=== PATIENT | female | born 1955 | race Caucasian/White ===

== ENCOUNTER → 2018-02-20 16:50 | Outpatient (CLI) | payer SELFPAY | PROVIDERS: Family Provider Family Medicine Geriatric Medicine; PCP Family Medicine Geriatric Medicine; Visit Provider Family Medicine Geriatric Medicine | DX: R69 Illness, unspecified (principal) ==

== ENCOUNTER → 2019-12-10 | Outpatient (CLI) | payer SELFPAY ==
[2019-12-10 11:34] VITALS: BMI 28.1
[2019-12-10 15:17] LABS: Absolute Lymphocyte Count 1.84 X10^3/uL (0.83-4.51); Absolute Neutrophil Count 5.6 X10^3/uL (2.0-7.7); Basophil# 0.05 X10^3/uL; Basophil% 0.6 % (0-1); Eosinophil# 0.14 X10^3/uL; Eosinophils% 1.7 % (0-5); Hematocrit 40.5 % (37-47); Hemoglobin 13.2 g/dL (12.0-15.0); Lymphocyte # 1.84 X10^3/ul (4.0); Lymphocyte % 22.3 % (19-41); Mean Corp Hgb Conc 32.6 g/dL (32-36); Mean Corpuscular Hgb 30.8 pg (27.0-32.0); Mean Corpuscular Volume 94.4 fL (81-99); Mean Platelet Vol. 10.7 fl (6.2-12.0); Monocyte# 0.56 X10^3/uL; Monocyte% 6.8 % (0-10); NRBC Flagged by Analyzer 0 % (0-5); Neutrophil # 5.63 X10^3/uL (2.7-7.7); Neutrophil % 68.2 % (47-70); Platelet Count 259 K/mm3 (150-450); RBC Distribution Width CV 12.9 % (11.6-14.6); RBC Distribution Width SD 44.4 fl (35.1-43.9); Red Blood Count 4.29 M/mm3 (4.2-5.4); White Blood Count 8.3 K/mm3 (4.4-11.0)
[2019-12-10 15:33] LABS: AST(SGOT) 11 U/L (15-37); Alanine Aminotransfer ALT/SGPT 20 U/L (13-56); Albumin, Serum 3.5 g/dL (3.2-5.0); Alkaline Phosphatase 103 U/L (45-117); Anion Gap 8 (5-15); BUN 18 mg/dL (7-18); Calcium,Total 9.1 mg/dL (8.5-10.1); Chloride 105 mmol/L (98-107); Cholesterol 179 mg/dL (200); Creatinine, Serum 0.69 mg/dL (0.55-1.02); EST Glomerular Filtration Rate 91 mL/min (>60); Est Glom Filt Rate - Afr Amer 110 mL/min (>60); Globulin 3.5 g/dL (2.2-4.2); Glucose 120 mg/dL (74-106); High Density Lipoprotein 44 mg/dL; Potassium 4.2 mmol/L (3.5-5.1); Sodium Level 139 mmol/L (136-145); Triglycerides 258 mg/dL; Very Low Density Lipoprotein 52 mg/dL (5-40)
== END | disposition home or self-care (01) ==
LOC: BIMLAB 12:05
PROVIDERS: PCP Internal Medicine; Referring Provider Family Medicine; Visit Provider Family Medicine
DX: E78.5 Hyperlipidemia, unspecified (principal); I10 Essential (primary) hypertension
CPT/HCPCS: 36415; 80053; 80061; 85025

== ENCOUNTER → 2020-03-30 15:01 | Outpatient (CLI) | payer SELFPAY ==
[2020-02-26 11:25] VITALS: BMI 28.1
--- NOTE | 2020-03-30 15:02 | ECHOD_ITS ---
Reason For Study: Murmur Procedure This was a 2D Doppler, Color Flow transthoracic echocardiogram. Exam performed in department. Left Ventricle Normal LV size. Left ventricular systolic function is normal. The estimated ejection fraction is 60 %. Stage 1 diastolic dysfunction. No regional wall motion abnormalities noted. Right Ventricle Normal RV size. Normal systolic function. Atria The left atrium is mildly enlarged. Normal right atrium. Mitral Valve There is mild to moderate mitral annular calcification. Tricuspid Valve Normal tricuspid valve. Mild (1+) tricuspid valve insufficiency. Pulmonary artery systolic pressure is 25 mmHg. Aortic Valve Trisinus/trileaflet aortic valve. Pulmonic Valve Normal pulmonic valve. Great Vessels Normal aortic root. The pulmonary artery is normal size. Normal inferior vena cava. Pericardium/Pleural No pericardial effusion. MMode/2D Measurements & Calculations LVIDd: 4.2 cm IVSd: 0.97 cm Ao root diam: 3.3 cm LVIDs: 2.6 cm LVPWd: 1.0 cm LA dimension: 4.0 cm FS: 38.1 % LAV(MOD-bp): 82.7 ml LVAd ap4: 30.5 cm2 SV(MOD-sp4): 56.9 ml LAV(MOD-bp) Indexed: 43.2 ml/m2 EDV(MOD-sp4): 91.7 ml LAV(MOD-sp2): 81.4 ml EDV(sp4-el): 96.9 ml LAV(MOD-sp4): 80.9 ml LVAs ap4: 16.3 cm2 ESV(MOD-sp4): 34.8 ml ESV(sp4-el): 33.8 ml EF(MOD-sp4): 62.1 % EF(sp4-el): 65.2 % SV(sp4-el): 63.1 ml LA A4 area: 23.3 cm2 RA A4 area: 15.2 cm2 Time Measurements MV dec time: 0.24 sec Doppler Measurements & Calculations MV E max jasiel: 105.7 cm/sec Lat Peak E' Jasiel: 7.7 cm/sec Med Peak E' Jasiel: 7.6 cm/sec MV A max jasiel: 119.3 cm/sec E/E' lat: 13.6 E/E' med: 14.0 MV E/A: 0.89 MV V2 max: 127.1 cm/sec MV P1/2t max jasiel: 120.4 cm/sec Ao V2 max: 138.5 cm/sec MV max P.5 mmHg MV P1/2t: 65.1 msec Ao max P.7 mmHg MV V2 mean: 74.0 cm/sec MV mean P.6 mmHg MV dec slope: 541.7 cm/sec2 MV V2 VTI: 42.6 cm MVA(P1/2t): 3.4 cm2 LV V1 max: 88.3 cm/sec PA V2 max: 81.9 cm/sec TR max jasiel: 238.8 cm/sec LV V1 max P.1 mmHg TR max P.8 mmHg Interpretation Summary Normal LV size. Left ventricular systolic function is normal. The estimated ejection fraction is 60 %. Stage 1 diastolic dysfunction. The left atrium is mildly enlarged. Ordering Physician: Refugio Doyle Referring Physician: Harpreet Hansen M.D. Performed By: Rodger Pimentel RCS
== END ==
PROVIDERS: PCP Family Medicine; Referring Provider Nurse Practitioner Family; Visit Provider Nurse Practitioner Family
DX: I38 Endocarditis, valve unspecified (principal)
CPT/HCPCS: 93306

== ENCOUNTER → 2020-04-22 11:42 | Outpatient (CLI) | payer SELFPAY ==
[2020-04-22 11:00] VITALS: BMI 27.6
[2020-04-22 15:49] LABS: Anion Gap 4 (5-15); BUN 27 mg/dL (7-18); BUN/Creat Ratio 32.1 RATIO (10-20); Chloride 106 mmol/L (98-107); Creatinine, Serum 0.84 mg/dL (0.55-1.02); EST Glomerular Filtration Rate 72 mL/min (>60); Est Glom Filt Rate - Afr Amer 88 mL/min (>60); Glucose 85 mg/dL (74-106); Potassium 4.3 mmol/L (3.5-5.1); Sodium Level 138 mmol/L (136-145)
== END ==
PROVIDERS: PCP Family Medicine; Referring Provider Nurse Practitioner Family; Visit Provider Nurse Practitioner Family
DX: I10 Essential (primary) hypertension (principal)
CPT/HCPCS: 36415; 80048

== ENCOUNTER → 2020-11-02 16:12 | Outpatient (CLI) | payer MEDICARE, SELFPAY ==
[2020-11-02 15:40] VITALS: BMI 27.6
[2020-11-02 17:26] LABS: Cholesterol 204 mg/dL (200); High Density Lipoprotein 50 mg/dL; Triglycerides 281 mg/dL; Very Low Density Lipoprotein 56 mg/dL (5-40)
== END ==
PROVIDERS: PCP Family Medicine; Referring Provider Family Medicine; Visit Provider Family Medicine
DX: I10 Essential (primary) hypertension (principal)
CPT/HCPCS: 36415; 80061

== ENCOUNTER 2021-08-30 16:07 | Outpatient (CLI) | payer MEDICARE, SELFPAY ==
[2021-08-30 18:01] LABS: AST(SGOT) 14 U/L (15-37); Alanine Aminotransfer ALT/SGPT 21 U/L (13-56); Albumin, Serum 3.7 g/dL (3.2-5.0); Alkaline Phosphatase 91 U/L (45-117); Anion Gap 3 (5-15); BUN 28 mg/dL (7-18); BUN/Creat Ratio 32.5 RATIO (10-20); Calcium,Total 9.3 mg/dL (8.5-10.1); Chloride 102 mmol/L (98-107); Creatinine, Serum 0.86 mg/dL (0.55-1.02); EST Glomerular Filtration Rate 70 mL/min (>60); Est Glom Filt Rate - Afr Amer 85 mL/min (>60); Globulin 3.7 g/dL (2.2-4.2); Glucose 77 mg/dL (74-106); Potassium 4.3 mmol/L (3.5-5.1); Protein, Total 7.4 g/dL (6.4-8.2); Sodium Level 136 mmol/L (136-145)
== END 2021-08-30 23:59 | disposition home or self-care (01) ==
LOC: BIMLAB 16:07
PROVIDERS: PCP Family Medicine; Referring Provider Family Medicine; Visit Provider Family Medicine
DX: I10 Essential (primary) hypertension (principal)
CPT/HCPCS: 36415; 80053

== ENCOUNTER 2021-09-28 13:00 | Outpatient (RCR) | payer MEDICARE, SELFPAY ==
[2021-08-31 14:59] VITALS: BP 160/70; PULSE 78; TEMP 35.7; BMI 27.6
--- NOTE | 2021-08-31 16:57 | PCM.WC.HP ---
History of Present Illness Date of Service: 08/31/21 Chief Complaint: Venous leg ulcer right lower extremity History of Wound: This is a 66-year-old white female who presents to the wound healing center today for evaluation of a wound to her right lower extremity. She has a past medical history as listed above. The patient states approximately 3 weeks ago she developed a wound to her right lower extremity and she is unsure of the cause. She denies any known precipitating events. The patient has been applying Neosporin to the wound daily and covering with gauze, with no improvement in the wound. She denies any signs or symptoms of infection to the wound. She does state that initially she squeezed around the wound and yellow discharge came out, but that it has not been draining since then. She reports a past history of varicose veins to her bilateral lower extremities, and states she does not wear compression stockings because they have irritated her knees in the past. She also has a past medical history of chronic venous insufficiency and would like a referral to Dr. Quinones. She denies any other concerns at this time. Past medical, family, and social history reviewed and not pertinent to the current visit and all other systems reviewed and negative with exception of those listed above. [facility] Medical History Arthritis Back problem Carpal tunnel syndrome Cataracts, bilateral GERD (gastroesophageal reflux disease) Heart valve disorder Hyperlipidemia Hypertension Vascular disease Venous insufficiency Venous ulcer of right leg Home Medications esomeprazole magnesium 20 mg capsule,delayed release 22.3 mg PO DAILY 12/08/16 [History Last Taken Unknown] acetaminophen 325 mg capsule 650 mg PO BID PRN cap 11/20/18 [History Last Taken Unknown] diclofenac sodium 1 % topical gel 4 g TOPICAL ONCE #100 g 11/20/18 [Rx Last Taken Unknown] multivitamin 1 tab PO DAILY 11/20/18 [History Last Taken Unknown] meloxicam 15 mg tablet 15 mg PO DAILY 04/22/20 [History Last Taken Unknown] hydrochlorothiazide 25 mg tablet 25 mg PO QAM #90 tab 11/02/20 [Rx Last Taken Unknown] metoprolol tartrate 50 mg tablet 50 mg PO TID #180 tab 05/10/21 [Rx Last Taken Unknown] valsartan 320 mg tablet 160 mg PO BID #180 tab 05/10/21 [Rx Last Taken Unknown] duloxetine 60 mg capsule,delayed release 60 mg PO DAILY #90 cap 06/15/21 [Rx Last Taken Unknown] rosuvastatin 40 mg tablet 40 mg PO QHS #90 tab 06/15/21 [Rx Last Taken Unknown] pantoprazole 40 mg tablet,delayed release 40 mg PO DAILY #30 tab 08/17/21 [Rx Last Taken Unknown] Allergy/AdvReac Type Severity Reaction Status Date / Time No Known Allergies Allergy Verified 08/30/21 15:12 Family History Mother Arthritis CVA (cerebral vascular accident) Father Arthritis Myocardial infarction Heart disease Social History Smoking Status: Current every day smoker alcohol intake: former details: Several years substance use type: does not use what type of physical activity do you participate in: none ROS ROS Narrative Negative x10 systems with exception of those listed above Vital Signs Vital Signs Vital Signs: 08/31/21 14:59 Temperature 96.2 F L Temperature Source Temporal Pulse Rate 78 Blood Pressure 160/70 H Blood Pressure Mean 100 Blood Pressure Source Monitor Weight Weight: 176 lb Body Mass Index (BMI) 27.6 Physical Exam Const alert, oriented x3, no apparent distress, healthy appearing and well nourished General Appearance: cooperative Exam Limitations: no limitations HEENT normocephalic Head and Scalp: normal to inspection Mouth: oral and palatal mucosa normal Eyes General Eye: normal appearance of both eyes Resp normal respiratory effort, normal air movement and no use of accessory muscles Effort and Inspection: able to speak in complete sentences Auscultation: clear to auscultation bilaterally Cardio regular rate, regular rhythm, S1 normal heart sound, S2 normal heart sound, no murmurs and peripheral pulses 2+ throughout Palpation: normal PMI Rate: regular rate Heart Sounds: S1 normal and S2 normal GI normal to inspection, nondistended, normoactive bowel sounds, soft to palpation, non-tender and non-distended Palpation: soft Extremity normal to inspection and full ROM Extremity Narrative: Chronic venous changes present to bilateral lower extremities with large varicosities present bilateral lower extremities General Extremity: normal exam except as noted Skin Skin Narrative: Nonhealing venous leg ulcer to right lower extremity with adherent slough, no signs of obvious infection at this time Neuro oriented x3 and moves all extremities Sensorium / Orientation: awake, alert, oriented to person, oriented to place and oriented to time Psych mental status grossly normal, thought process normal and denies hallucinations Appearance: grossly normal Attitude: calm Activity / Motor Behavior: appropriate eye contact Speech: normal speech Thought Process: normal thought process Thought Content: normal thought content Attention / Concentration: attention grossly intact Insight: insight good Judgement: judgement good Debridement Note Debridement Note Wound debrided: Nonhealing venous leg ulcer to right lower extremity Laterality: Right Type of Debridement: Excisional debridement Anesthesia Used: 4% Lidocaine Solution and 5% Lidocaine Gel Depth: Down to and including healthy tissue and in the subcutaneous layer Percentage of wound debrided: 100 Instrument Used: 3mm curette and 5mm curette Tissue Removed: Slough and devitalized tissue Severity: Fat Layer Exposed Amount of bleeding with debridement: Mild Bleeding Controlled with: Pressure Patient tolerated procedure: Patient tolerated procedure well Post-Debridement Measurements and Additional Note: Post-Debridement Measurements/Treatment WC - Nurse 1 - General Ulcer Assessment Start: 08/31/21 14:59 Freq: Status: Active Protocol: KALYAN Activity Type Activity Date Activity User E-Sign Co-Sign Detail Recorded Client Recorded Date Recorded By Document 08/31/21 14:59 [place] [id number] 08/31/21 15:18 AK 08/31/21 14:59 - Today's Visit Information Type of service Initial Visit Arrival Mode Ambulatory Patient Identification Verified (Name & Yes ) Patient Requires Transmission-Based No Precautions Height and Weight Height 5 ft 7 in Weight 176 lb Weight in Pounds 176.0 lbs Body Mass Index (BMI) 27.6 BMI Classification Overweight BSA - Johanny 1.92 Vital Signs Temperature (97.8 F-99.1 F) 96.2 F L Temperature Source Temporal Pulse Rate (60-100) 78 Pulse Location Monitor Blood Pressure (90/60-120/80) 160/70 H Blood Pressure Mean 100 Source Monitor History Since Last Visit- (Skip if this is Patient's initial visit) Have you changed medications since your No last visit? Any new allergies or adverse reactions No Had a fall/change in ADL's that may No increase risk of falls Signs or symptoms of abuse and/or No neglect since last visit Have you been in the hospital since your No last visit? Has dressing in place as prescribed Yes Has compression in place as prescribed N/A Has offloadiing in place as prescribed N/A Experienced any changes in pain level or No management Left Footwear Regular Shoe Right Footwear Regular Shoe Pain Scale: 0-10 Numeric Is Patient Pain Free? Yes WC - Nurse 1 - General Ulcer Measurement Start: 08/31/21 14:59 Freq: Status: Active Protocol: Activity Type Activity Date Activity User E-Sign Co-Sign Detail Recorded Client Recorded Date Recorded By Document 08/31/21 14:59 AK [id number] 08/31/21 15:18 AK 08/31/21 14:59 Wound Center Nurse 1 #1 Right hunter -Combined with other wound No -Current Size (cm) - Length 1 -Current Size (cm) - Width 1 -Current Size (cm) - Depth 0.1 -Total Square Cm 1 -Date of Last Picture (Recall this 08/31/21 field) -Photo Taken Yes -Epithelialization None Present -Tunneling No -Undermining/Tunneling No -Circular Undermining No -Change in Wound Grade/Stage No -Exudate Amt Small -Exudate Type Serous -Wound Margin Distinct, Outline Attached -Granulation Quality N/A -Slough/Fibrin Yes -Necrosis Amt Small (1-33%) -Necrotic Tissue Type Adherent Slough -Structure Exposed N/A -Texture (Nicolasa-wound Skin Appearance) Assessed -Moisture (Nicolasa-wound Skin Appearance) No Abnormality, Assessed -Color (Nicolasa-wound Skin Appearance) Assessed, Erythema -Temperature (Nicolasa-wound Skin No Abnormality Appearance) (Pt Warm) -Tenderness on Palpation (Nicolasa-wound No Skin Appearance) -Ulcer Cleansing Rinsed/ Irrigated with Saline -Foul Odor after Cleansing No -Anesthetic Used 4% Lidocaine Solution Right Calf (cm) 39 Right Ankle (cm) 26 Left Calf (cm) 39 Left Ankle (cm) 24.5 WC - Nurse 2 - General Ulcer CM Notes Start: 08/31/21 14:59 Freq: Status: Active Protocol: Activity Type Activity Date Activity User E-Sign Co-Sign Detail Recorded Client Recorded Date Recorded By Document 08/31/21 15:28 MW [id number] 08/31/21 15:32 MW 08/31/21 15:28 Wound Center Nurse 2 #1 Right hunter -Time 15:29 -Correct Patient Yes -Correct Side, Site, Position Yes -Correct Procedure Yes -Procedure Performed Yes -Type of Procedure Debridement -Clinical Debridement Subcutaneous -Tissue Removed Subcutaneous -Post Debridement (cm) - Length 3.5 -Post Debridement (cm) - Width 1.8 -Post Debridement (cm) - Depth 0.1 -Total Square (Post) (cm) 6.30 -Area of Debridement (cm) - Length 3.5 -Area of Debridement (cm) - Width 1.8 -Total Square (Area) (cm) 6.30 -Tunneling No -Undermining/Tunneling No -Circular Undermining No -Wound/Ulcer Outcome Not Healed -Ulcer Cleansing Rinsed/ Irrigated with Saline -Foul Odor after Cleansing No -Bioengineered Tissue No -Bleeding Controlled with Pressure -Offloading No -Treatment Response Procedure Tolerated Well -Debridement - Subq, 1st 20sq cm Yes Pain Scale: 0-10 Numeric Is Patient Pain Free? Yes - Nurse 3 - General Ulcer D/C NN Start: 08/31/21 14:59 Freq: Status: Active Protocol: Activity Type Activity Date Activity User E-Sign Co-Sign Detail Recorded Client Recorded Date Recorded By Document 08/31/21 15:42 AK [id number] 08/31/21 15:47 AK 08/31/21 15:42 Wound Care Nurse 3 #1 Right hunter -Ulcer Cleansing Rinsed/ Irrigated with Saline -Foul Odor after Cleansing No -Negative Pressure Wound Therapy N/A -Primary Dressing Applied NonAdherent Contact Layer, Promogran Rhonda Matter -Primary Dressing Covered/Secured with Dry Gauze, Secured with Tape -Promogran Rhonda Matter 1 Pain Scale: 0-10 Numeric Is Patient Pain Free? Yes WC - Visit Discharge Discharge Condition Stable Ambulatory Status Ambulatory Transportation Private Auto Medication Reconcilliation completed & Yes provided to patient/care provider Clinical Summary of Care Provided Yes Charges/Coding Procedures Integumentary [id number]: [id number] Yolie subq tissue 20 sq cm/< Assessment/Plan Assessment/Plan (1) Venous ulcer of right leg: CODE(S): I83.019 - Varicose veins of right lower extremity with ulcer of unspecified site; L97.919 - Non-pressure chronic ulcer of unspecified part of right lower leg with unspecified severity (2) Venous insufficiency: CODE(S): I87.2 - Venous insufficiency (chronic) (peripheral) (3) Vascular disease: CODE(S): I99.9 - Unspecified disorder of circulatory system (4) GERD (gastroesophageal reflux disease): CODE(S): K21.9 - Gastro-esophageal reflux disease without esophagitis (5) Hypertension: CODE(S): I10 - Essential (primary) hypertension QUALIFIERS: Hypertension type: essential hypertension Qualified Code(s): I10 - Essential (primary) hypertension PLAN: Debridement performed today in clinic as annotated above. Rhonda applied. At home wound-care instructions: Daily application of Rhonda cover with Adaptic gauze, Change dressing once daily or more frequently as needed due to contamination. Wash wounds daily with antibacterial soap and water, rinse and dry thoroughly before each dressing change. Compression: Double layer Tubigrip's Off-loading: The patient was instructed to avoid pressure and friction on the affected areas. Reposition every 2 hours at minimum. Avoid prolonged standing and/or dangling of legs. When seated, feet should be elevated at chest level. Frequent ambulation is encouraged. Diet: Patient encouraged to increase protein intake while taking caution to avoid high carbohydrate and/or sugar intake. Smoking: The risks of smoking and benefits of smoking cessation were discussed with the patient today. The patient is encouraged to quit smoking. If smoking cessation aids are desired, the patient should contact their primary care provider to discuss appropriate options. Labs/cultures/imaging: Cultures, lab work, and vascular studies held today will reassess if no improvement. Follow-up: Return to clinic in 1 week for re-evaluation. Return sooner or report to the emergency room should symptoms worsen, or new symptoms arise. This note was generated with [employer] dictation software. It may contain incorrect words, spelling, and punctuation that were not noted in checking the note before signing. I have spent 25 minutes today reviewing labs, records, and history. Time includes coordinating care, interpretation of tests, and counseling the patient/family. This also includes time I spent with the patient for exam, treatment plan, and education as well as documenting clinical information in the electronic health record.
[2021-09-07 15:09] VITALS: BP 155/79; PULSE 86; RESP 18; TEMP 36.4; BMI 27.6
--- NOTE | 2021-09-07 16:39 | PCM.WC.PN ---
History of Present Illness Date of Service: 09/07/21 Chief Complaint: Venous leg ulcer right lower extremity History of Wound: This is a 66-year-old white female who presents to the wound healing center today for evaluation of a wound to her right lower extremity. She has a past medical history as listed above. The patient states approximately 3 weeks ago she developed a wound to her right lower extremity and she is unsure of the cause. She denies any known precipitating events. The patient has been applying Neosporin to the wound daily and covering with gauze, with no improvement in the wound. She denies any signs or symptoms of infection to the wound. She does state that initially she squeezed around the wound and yellow discharge came out, but that it has not been draining since then. She reports a past history of varicose veins to her bilateral lower extremities, and states she does not wear compression stockings because they have irritated her knees in the past. She also has a past medical history of chronic venous insufficiency and would like a referral to Dr. Quinones. She denies any other concerns at this time. Past medical, family, and social history reviewed and not pertinent to the current visit and all other systems reviewed and negative with exception of those listed above. Progress of Wound: Wound size is stable, will trial 3M wraps today, no new concerns Objective Data Objective Data Vital Signs: Vital Signs Temp Pulse Resp BP 97.5 F L 86 18 155/79 H 09/07/21 15:09 09/07/21 15:09 09/07/21 15:09 09/07/21 15:09 Weight: 176 lb Body Mass Index (BMI) 27.6 Charges/Coding Procedures Integumentary 111xxx-113xx: [id number] Yolie subq tissue 20 sq cm/< Physical Exam Const alert, oriented x3, no apparent distress, healthy appearing and well nourished General Appearance: cooperative Exam Limitations: no limitations HEENT normocephalic Head and Scalp: normal to inspection Mouth: oral and palatal mucosa normal Eyes General Eye: normal appearance of both eyes Resp normal respiratory effort, normal air movement and no use of accessory muscles Effort and Inspection: able to speak in complete sentences Auscultation: clear to auscultation bilaterally Cardio regular rate, regular rhythm, S1 normal heart sound, S2 normal heart sound, no murmurs and peripheral pulses 2+ throughout Palpation: normal PMI Rate: regular rate Heart Sounds: S1 normal and S2 normal GI normal to inspection, nondistended, normoactive bowel sounds, soft to palpation, non-tender and non-distended Palpation: soft Extremity normal to inspection and full ROM Extremity Narrative: Chronic venous changes present to bilateral lower extremities with large varicosities present bilateral lower extremities General Extremity: normal exam except as noted Skin Skin Narrative: Nonhealing venous leg ulcer to right lower extremity with adherent slough, no signs of obvious infection at this time Neuro oriented x3 and moves all extremities Sensorium / Orientation: awake, alert, oriented to person, oriented to place and oriented to time Psych mental status grossly normal, thought process normal and denies hallucinations Appearance: grossly normal Attitude: calm Activity / Motor Behavior: appropriate eye contact Speech: normal speech Thought Process: normal thought process Thought Content: normal thought content Attention / Concentration: attention grossly intact Insight: insight good Judgement: judgement good Debridement Note Debridement Note Wound debrided: Venous leg ulcer right lower extremity Laterality: Right Type of Debridement: Excisional debridement Anesthesia Used: 4% Lidocaine Solution and 5% Lidocaine Gel Depth: Down to and including healthy tissue and in the subcutaneous layer Percentage of wound debrided: 100 Instrument Used: 5mm curette Tissue Removed: Slough and devitalized tissue Severity: Fat Layer Exposed Amount of bleeding with debridement: Mild Bleeding Controlled with: Pressure Patient tolerated procedure: Patient tolerated procedure well Post-Debridement Measurements and Additional Note: Post-Debridement Measurements/Treatment - Nurse 1 - General Ulcer Assessment Start: 08/31/21 14:59 Freq: Status: Active Protocol: KALYAN Activity Type Activity Date Activity User E-Sign Co-Sign Detail Recorded Client Recorded Date Recorded By Document 08/31/21 14:59 AK [id number] 08/31/21 15:18 AK Document 09/07/21 15:09 DL [id number] 09/07/21 15:17 DL 08/31/21 09/07/21 14:59 15:09 - Today's Visit Information Type of service Initial Visit Follow-up Visit (Physician/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 ENGINEER ) Arrival Mode Ambulatory Ambulatory Transfer Assistance None Patient Identification Verified (Name & Yes Yes ) Patient Requires Transmission-Based No No Precautions Height and Weight Height 5 ft 7 in Weight 176 lb Weight in Pounds 176.0 lbs Body Mass Index (BMI) 27.6 27.6 BMI Classification Overweight Overweight BSA - Johanny 1.92 Vital Signs Temperature (97.8 F-99.1 F) 96.2 F L 97.5 F L Temperature Source Temporal Temporal Pulse Rate (60-100) 78 86 Pulse Location Monitor Monitor Respiratory Rate (12-18) 18 Respiratory rate source Observation Blood Pressure (90/60-120/80) 160/70 H 155/79 H Blood Pressure Mean (mm Hg) 100 104 Source Monitor Monitor History Since Last Visit- (Skip if this is Patient's initial visit) Have you changed medications since your No No last visit? Any new allergies or adverse reactions No No Had a fall/change in ADL's that may No No increase risk of falls Signs or symptoms of abuse and/or No No neglect since last visit Have you been in the hospital since your No No last visit? Has dressing in place as prescribed Yes Yes Has compression in place as prescribed N/A Yes Has offloadiing in place as prescribed N/A N/A Experienced any changes in pain level or No No management Left Footwear Regular Shoe Right Footwear Regular Shoe Pain Scale: 0-10 Numeric Is Patient Pain Free? Yes Yes WC - Nurse 1 - General Ulcer Measurement Start: 08/31/21 14:59 Freq: Status: Active Protocol: Activity Type Activity Date Activity User E-Sign Co-Sign Detail Recorded Client Recorded Date Recorded By Document 08/31/21 14:59 AK [id number] 08/31/21 15:18 AK Document 09/07/21 15:09 DL [id number] 09/07/21 15:17 DL 08/31/21 09/07/21 14:59 15:09 Wound Center Nurse 1 #1 Right hunter -Combined with other wound No -Current Size (cm) - Length 1 3.5 -Current Size (cm) - Width 1 1 -Current Size (cm) - Depth 0.1 0.1 -Total Square Cm 1 3.5 -Date of Last Picture (Recall this 08/31/21 field) -Photo Taken Yes No -Epithelialization None Present -Tunneling No -Undermining/Tunneling No -Circular Undermining No -Change in Wound Grade/Stage No -Exudate Amt Small Medium -Exudate Type Serous Serosanguineous -Wound Margin Distinct, Distinct, Outline Outline Attached Attached -Granulation Amt None Present (0 %) -Granulation Quality N/A -Slough/Fibrin Yes -Necrosis Amt Small (1-33%) Large (67-100%) -Necrotic Tissue Type Adherent Slough Adherent Slough -Structure Exposed N/A N/A -Texture (Nicolasa-wound Skin Appearance) Assessed Scarring -Moisture (Nicolasa-wound Skin Appearance) No Abnormality, No Abnormality Assessed -Color (Nicolasa-wound Skin Appearance) Assessed, No Abnormality Erythema -Temperature (Nicolasa-wound Skin No Abnormality No Abnormality Appearance) (Pt Warm) (Pt Warm) -Tenderness on Palpation (Nicolasa-wound No No Skin Appearance) -Ulcer Cleansing Rinsed/ Rinsed/ Irrigated with Irrigated with Saline Saline -Foul Odor after Cleansing No No -Anesthetic Used 4% Lidocaine 4% Lidocaine Solution Solution Right Calf (cm) 39 39 Right Ankle (cm) 26 24 Left Calf (cm) 39 Left Ankle (cm) 24.5 WC - Nurse 2 - General Ulcer CM Notes Start: 08/31/21 14:59 Freq: Status: Active Protocol: Activity Type Activity Date Activity User E-Sign Co-Sign Detail Recorded Client Recorded Date Recorded By Document 08/31/21 15:28 MW [id number] 08/31/21 15:32 MW Document 09/07/21 15:40 MW [id number] 09/07/21 15:41 MW 08/31/21 09/07/21 15:28 15:40 Wound Center Nurse 2 #1 Right hunter -Time 15:29 15:40 -Correct Patient Yes Yes -Correct Side, Site, Position Yes Yes -Correct Procedure Yes Yes -Procedure Performed Yes Yes -Type of Procedure Debridement Debridement -Clinical Debridement Subcutaneous Subcutaneous -Tissue Removed Subcutaneous Subcutaneous -Post Debridement (cm) - Length 3.5 3.5 -Post Debridement (cm) - Width 1.8 1.7 -Post Debridement (cm) - Depth 0.1 0.1 -Total Square (Post) (cm) 6.30 5.95 -Area of Debridement (cm) - Length 3.5 3.5 -Area of Debridement (cm) - Width 1.8 1.7 -Total Square (Area) (cm) 6.30 5.95 -Tunneling No No -Undermining/Tunneling No No -Circular Undermining No No -Wound/Ulcer Outcome Not Healed Not Healed -Ulcer Cleansing Rinsed/ Rinsed/ Irrigated with Irrigated with Saline Saline -Foul Odor after Cleansing No No -Bioengineered Tissue No No -Bleeding Controlled with Pressure Pressure -Offloading No No -Treatment Response Procedure Procedure Tolerated Well Tolerated Well -Debridement - Subq, 1st 20sq cm Yes Yes Pain Scale: 0-10 Numeric Is Patient Pain Free? Yes Yes WC - Nurse 3 - General Ulcer D/C NN Start: 08/31/21 14:59 Freq: Status: Active Protocol: Activity Type Activity Date Activity User E-Sign Co-Sign Detail Recorded Client Recorded Date Recorded By Document 08/31/21 15:42 AK [id number] 08/31/21 15:47 AK Document 09/07/21 15:41 MW [id number] 09/07/21 15:43 MW 08/31/21 09/07/21 15:42 15:41 Wound Care Nurse 3 #1 Right hunter -Ulcer Cleansing Rinsed/ Rinsed/ Irrigated with Irrigated with Saline Saline -Foul Odor after Cleansing No No -Negative Pressure Wound Therapy N/A N/A -Primary Dressing Applied NonAdherent Silvercel Contact Layer, Promogran Rhonda Matter -Primary Dressing Covered/Secured with Dry Gauze, Dry Gauze Secured with Tape -Promogran Rhonda Matter 1 -Silvercel 1 Right -Lotion applied to leg before No compression wrap -Multi-Layered Wrap Application Multi-Layer Comp - Right ($ ) Treatment Response Procedure Tolerated Well Pain Scale: 0-10 Numeric Is Patient Pain Free? Yes Yes Teaching: Wound Center Dressing Your Wound -Person Taught Patient -Teaching Method Discussion -Response to teaching Verbalize understanding WC - Visit Discharge Discharge Condition Stable Stable Ambulatory Status Ambulatory Ambulatory Transportation Private Auto Private Auto Accompanied by self Medication Reconcilliation completed & Yes No provided to patient/care provider Clinical Summary of Care Provided Yes Yes Assessment/Plan Assessment/Plan (1) Venous ulcer of right leg: CODE(S): I83.019 - Varicose veins of right lower extremity with ulcer of unspecified site; L97.919 - Non-pressure chronic ulcer of unspecified part of right lower leg with unspecified severity (2) Venous insufficiency: CODE(S): I87.2 - Venous insufficiency (chronic) (peripheral) (3) Vascular disease: CODE(S): I99.9 - Unspecified disorder of circulatory system (4) GERD (gastroesophageal reflux disease): CODE(S): K21.9 - Gastro-esophageal reflux disease without esophagitis (5) Hypertension: CODE(S): I10 - Essential (primary) hypertension QUALIFIERS: Hypertension type: essential hypertension Qualified Code(s): I10 - Essential (primary) hypertension PLAN: Debridement performed today in clinic as annotated above. Silver cell with 3M wraps, change this following Saturday. At home wound-care instructions: See above Compression: 3M wraps Off-loading: The patient was instructed to avoid pressure and friction on the affected areas. Reposition every 2 hours at minimum. Avoid prolonged standing and/or dangling of legs. When seated, feet should be elevated at chest level. Frequent ambulation is encouraged. Diet: Patient encouraged to increase protein intake while taking caution to avoid high carbohydrate and/or sugar intake. Smoking: The risks of smoking and benefits of smoking cessation were discussed with the patient today. The patient is encouraged to quit smoking. If smoking cessation aids are desired, the patient should contact their primary care provider to discuss appropriate options. Labs/cultures/imaging: Cultures, lab work, and vascular studies held today will reassess if no improvement. She does have an appointment scheduled with Dr. Quinones on 10/14/2021 Follow-up: Return to clinic in 1 week for re-evaluation. Return sooner or report to the emergency room should symptoms worsen, or new symptoms arise. Given the delayed wound healing and fact that the wound has been present for greater than 4 weeks without improving significantly with wound care, will apply for an advanced skin substitute. This note was generated with [employer] dictation software. It may contain incorrect words, spelling, and punctuation that were not noted in checking the note before signing. I have spent 25 minutes today reviewing labs, records, and history. Time includes coordinating care, interpretation of tests, and counseling the patient/family. This also includes time I spent with the patient for exam, treatment plan, and education as well as documenting clinical information in the electronic health record.
[2021-09-14 15:12] VITALS: RESP 17; TEMP 36.4; BMI 27.6
--- NOTE | 2021-09-14 16:44 | PN.PCM_ITS ---
History of Present Illness Date of Service: 09/14/21 Chief Complaint: Venous leg ulcer right lower extremity History of Wound: This is a 66-year-old white female who presents to the wound healing center today for evaluation of a wound to her right lower extremity. She has a past medical history as listed above. The patient states approximately 3 weeks ago she developed a wound to her right lower extremity and she is unsure of the cause. She denies any known precipitating events. The patient has been applying Neosporin to the wound daily and covering with gauze, with no improvement in the wound. She denies any signs or symptoms of infection to the wound. She does state that initially she squeezed around the wound and yellow discharge came out, but that it has not been draining since then. She reports a past history of varicose veins to her bilateral lower extremities, and states she does not wear compression stockings because they have irritated her knees in the past. She also has a past medical history of chronic venous insufficiency and would like a referral to Dr. Quinones. She denies any other concerns at this time. Past medical, family, and social history reviewed and not pertinent to the current visit and all other systems reviewed and negative with exception of those listed above. Progress of Wound: Wound size is stable, given the delayed wound healing, first application of purapply a.m. today and 3M wraps today, no new concerns Objective Data Objective Data Vital Signs: Vital Signs Temp Pulse Resp BP 97.6 F L 86 17 155/79 H 09/14/21 15:12 09/07/21 15:09 09/14/21 15:12 09/07/21 15:09 Weight: 176 lb Body Mass Index (BMI) 27.6 Charges/Coding Procedures Integumentary 150xxx-152xx: [id number] Skin sub graft trnk/arm/leg Physical Exam Const alert, oriented x3, no apparent distress, healthy appearing and well nourished General Appearance: cooperative Exam Limitations: no limitations HEENT normocephalic Head and Scalp: normal to inspection Mouth: oral and palatal mucosa normal Eyes General Eye: normal appearance of both eyes Resp normal respiratory effort, normal air movement and no use of accessory muscles Effort and Inspection: able to speak in complete sentences Auscultation: clear to auscultation bilaterally Cardio regular rate, regular rhythm, S1 normal heart sound, S2 normal heart sound, no murmurs and peripheral pulses 2+ throughout Palpation: normal PMI Rate: regular rate Heart Sounds: S1 normal and S2 normal GI normal to inspection, nondistended, normoactive bowel sounds, soft to palpation, non-tender and non-distended Palpation: soft Extremity normal to inspection and full ROM Extremity Narrative: Chronic venous changes present to bilateral lower extremities with large varicosities present bilateral lower extremities General Extremity: normal exam except as noted Skin Skin Narrative: Nonhealing venous leg ulcer to right lower extremity with adherent slough, no signs of obvious infection at this time Neuro oriented x3 and moves all extremities Sensorium / Orientation: awake, alert, oriented to person, oriented to place and oriented to time Psych mental status grossly normal, thought process normal and denies hallucinations Appearance: grossly normal Attitude: calm Activity / Motor Behavior: appropriate eye contact Speech: normal speech Thought Process: normal thought process Thought Content: normal thought content Attention / Concentration: attention grossly intact Insight: insight good Judgement: judgement good Debridement Note Debridement Note Wound debrided: Right lower extremity ulcer Laterality: Right Type of Debridement: Excisional debridement Anesthesia Used: 4% Lidocaine Solution and 5% Lidocaine Gel Depth: Down to and including healthy tissue and in the subcutaneous layer Percentage of wound debrided: 100 Instrument Used: 5mm curette Tissue Removed: Slough and devitalized tissue Severity: Fat Layer Exposed Amount of bleeding with debridement: Mild Bleeding Controlled with: Pressure Patient tolerated procedure: Patient tolerated procedure well Post-Debridement Measurements and Additional Note: Post-Debridement Measurements/Treatment - Nurse 1 - General Ulcer Assessment Start: 08/31/21 14:59 Freq: Status: Active Protocol: KALYAN Activity Type Activity Date Activity User E-Sign Co-Sign Detail Recorded Client Recorded Date Recorded By Document 08/31/21 14:59 AK [id number] 08/31/21 15:18 AK Document 09/07/21 15:09 DL [id number] 09/07/21 15:17 DL Document 09/14/21 15:12 ML [id number] 09/14/21 15:18 ML 08/31/21 09/07/21 09/14/21 14:59 15:09 15:12 - Today's Visit Information Type of service Initial Visit Follow-up Visit Follow-up Visit (Physician/HUMAN RESOURCES ASSISTANT MANAGER (Physician/HUMAN RESOURCES ASSISTANT MANAGER ) ) Arrival Mode Ambulatory Ambulatory Ambulatory Transfer Assistance None None Patient Identification Verified (Name & Yes Yes Yes ) Patient Requires Transmission-Based No No No Precautions Safety Precautions NA Height and Weight Height 5 ft 7 in Weight 176 lb Weight in Pounds 176.0 lbs Body Mass Index (BMI) 27.6 27.6 27.6 BMI Classification Overweight Overweight Overweight BSA - Johanny 1.92 Vital Signs Temperature (97.8 F-99.1 F) 96.2 F L 97.5 F L 97.6 F L Temperature Source Temporal Temporal Temporal Pulse Rate (60-100) 78 86 Pulse Location Monitor Monitor Respiratory Rate (12-18) 18 17 Respiratory rate source Observation Observation Blood Pressure (90/60-120/80) 160/70 H 155/79 H Blood Pressure Mean (mm Hg) 100 104 Source Monitor Monitor History Since Last Visit- (Skip if this is Patient's initial visit) Have you changed medications since your No No No last visit? Any new allergies or adverse reactions No No No Had a fall/change in ADL's that may No No No increase risk of falls Signs or symptoms of abuse and/or No No No neglect since last visit Have you been in the hospital since your No No No last visit? Has dressing in place as prescribed Yes Yes Yes Has compression in place as prescribed N/A Yes Yes Has offloadiing in place as prescribed N/A N/A N/A Experienced any changes in pain level or No No No management Left Footwear Regular Shoe Regular Shoe Right Footwear Regular Shoe Regular Shoe Pain Scale: 0-10 Numeric Is Patient Pain Free? Yes Yes Yes WC - Nurse 1 - General Ulcer Measurement Start: 08/31/21 14:59 Freq: Status: Active Protocol: Activity Type Activity Date Activity User E-Sign Co-Sign Detail Recorded Client Recorded Date Recorded By Document 08/31/21 14:59 AK [id number] 08/31/21 15:18 AK Document 09/07/21 15:09 DL [id number] 09/07/21 15:17 DL Document 09/14/21 15:12 ML [id number] 09/14/21 15:18 ML 08/31/21 09/07/21 09/14/21 14:59 15:09 15:12 Wound Center Nurse 1 #1 Right hunter -Combined with other wound No -Current Size (cm) - Length 1 3.5 3.4 -Current Size (cm) - Width 1 1 1.3 -Current Size (cm) - Depth 0.1 0.1 0.1 -Total Square Cm 1 3.5 4.42 -Date of Last Picture (Recall this 08/31/21 field) -Photo Taken Yes No -Epithelialization None Present -Tunneling No -Undermining/Tunneling No -Circular Undermining No -Change in Wound Grade/Stage No -Exudate Amt Small Medium -Exudate Type Serous Serosanguineous Serous -Wound Margin Distinct, Distinct, Distinct, Outline Outline Outline Attached Attached Attached -Granulation Amt None Present (0 Medium (34-66%) %) -Granulation Quality N/A -Slough/Fibrin Yes Yes -Necrosis Amt Small (1-33%) Large (67-100%) Medium (34-66%) -Necrotic Tissue Type Adherent Slough Adherent Slough Adherent Slough -Structure Exposed N/A N/A -Texture (Nicolasa-wound Skin Appearance) Assessed Scarring Assessed -Moisture (Nicolasa-wound Skin Appearance) No Abnormality, No Abnormality No Abnormality Assessed -Color (Nicolasa-wound Skin Appearance) Assessed, No Abnormality Assessed Erythema -Temperature (Nicolasa-wound Skin No Abnormality No Abnormality No Abnormality Appearance) (Pt Warm) (Pt Warm) (Pt Warm) -Tenderness on Palpation (Nicolasa-wound No No Skin Appearance) -Ulcer Cleansing Rinsed/ Rinsed/ Rinsed/ Irrigated with Irrigated with Irrigated with Saline Saline Saline -Foul Odor after Cleansing No No No -Anesthetic Used 4% Lidocaine 4% Lidocaine 5% Lidocaine Solution Solution Gel Right Calf (cm) 39 39 38.5 Right Ankle (cm) 26 24 23.2 Left Calf (cm) 39 Left Ankle (cm) 24.5 WC - Nurse 2 - General Ulcer CM Notes Start: 08/31/21 14:59 Freq: Status: Active Protocol: Activity Type Activity Date Activity User E-Sign Co-Sign Detail Recorded Client Recorded Date Recorded By Document 08/31/21 15:28 MW [id number] 08/31/21 15:32 MW Document 09/07/21 15:40 MW [id number] 09/07/21 15:41 MW Document 09/14/21 16:00 MW [id number] 09/14/21 16:16 MW 08/31/21 09/07/21 09/14/21 15:28 15:40 16:00 Wound Center Nurse 2 #1 Right hunter -Time 15:29 15:40 16:07 -Correct Patient Yes Yes Yes -Correct Side, Site, Position Yes Yes Yes -Correct Procedure Yes Yes Yes -Procedure Performed Yes Yes Yes -Type of Procedure Debridement Debridement Debridement -Clinical Debridement Subcutaneous Subcutaneous Subcutaneous -Tissue Removed Subcutaneous Subcutaneous Subcutaneous -Post Debridement (cm) - Length 3.5 3.5 3.4 -Post Debridement (cm) - Width 1.8 1.7 1.5 -Post Debridement (cm) - Depth 0.1 0.1 0.1 -Total Square (Post) (cm) 6.30 5.95 5.10 -Area of Debridement (cm) - Length 3.5 3.5 3.4 -Area of Debridement (cm) - Width 1.8 1.7 1.5 -Total Square (Area) (cm) 6.30 5.95 5.10 -Tunneling No No No -Undermining/Tunneling No No No -Circular Undermining No No No -Wound/Ulcer Outcome Not Healed Not Healed Not Healed -Ulcer Cleansing Rinsed/ Rinsed/ Rinsed/ Irrigated with Irrigated with Irrigated with Saline Saline Saline -Foul Odor after Cleansing No No No -Bioengineered Tissue No No Yes -Type of Bioengineered Tissue PuraPly AM -Expiration Date 11/11/23 -Product Lot Number [id number] -Percent Used 100 -Lot number of Saline Used [id number] -Bleeding Controlled with Pressure Pressure Pressure -Treatment Response Procedure Procedure Procedure Tolerated Well Tolerated Well Tolerated Well -Offloading No No No -Debridement - Subq, 1st 20sq cm Yes Yes No -Apply Skin Sub - 1st 25 sq cm - Legs 1 -PuraPly AM (per sq cm) 4 Pain Scale: 0-10 Numeric Is Patient Pain Free? Yes Yes Yes WC - Nurse 3 - General Ulcer D/C NN Start: 08/31/21 14:59 Freq: Status: Active Protocol: Activity Type Activity Date Activity User E-Sign Co-Sign Detail Recorded Client Recorded Date Recorded By Document 08/31/21 15:42 AK [id number] 08/31/21 15:47 AK Document 09/07/21 15:41 MW [id number] 09/07/21 15:43 MW Document 09/14/21 16:16 MW [id number] 09/14/21 16:17 MW 08/31/21 09/07/21 09/14/21 15:42 15:41 16:16 Wound Care Nurse 3 #1 Right hunter -Ulcer Cleansing Rinsed/ Rinsed/ Not Cleansed Irrigated with Irrigated with Saline Saline -Foul Odor after Cleansing No No -Negative Pressure Wound Therapy N/A N/A -Primary Dressing Applied NonAdherent Silvercel Contact Layer, Promogran Rhonda Matter -Primary Dressing Covered/Secured with Dry Gauze, Dry Gauze Dry Gauze Secured with Tape -Promogran Rhonda Matter 1 -Silvercel 1 Right -Lotion applied to leg before No No compression wrap -Multi-Layered Wrap Application Multi-Layer Multi-Layer Comp - Right ($ Comp - Right ($ ) ) Treatment Response Procedure Procedure Tolerated Well Tolerated Well Pain Scale: 0-10 Numeric Is Patient Pain Free? Yes Yes Yes Teaching: Wound Center Dressing Your Wound -Person Taught Patient Patient -Teaching Method Discussion Discussion -Response to teaching Verbalize Verbalize understanding understanding WC - Visit Discharge Discharge Condition Stable Stable Stable Ambulatory Status Ambulatory Ambulatory Ambulatory Transportation Private Auto Private Auto Accompanied by self self Medication Reconcilliation completed & Yes No No provided to patient/care provider Clinical Summary of Care Provided Yes Yes Yes Assessment/Plan Assessment/Plan (1) Venous ulcer of right leg: CODE(S): I83.019 - Varicose veins of right lower extremity with ulcer of unspecified site; L97.919 - Non-pressure chronic ulcer of unspecified part of right lower leg with unspecified severity (2) Venous insufficiency: CODE(S): I87.2 - Venous insufficiency (chronic) (peripheral) (3) Vascular disease: CODE(S): I99.9 - Unspecified disorder of circulatory system (4) GERD (gastroesophageal reflux disease): CODE(S): K21.9 - Gastro-esophageal reflux disease without esophagitis (5) Hypertension: CODE(S): I10 - Essential (primary) hypertension QUALIFIERS: Hypertension type: essential hypertension Qualified Code(s): I10 - Essential (primary) hypertension PLAN: Debridement performed today in clinic as annotated above. Purapply a.m. #1 was applied today, 100% was utilized with 0 wastage, this was secured with Adaptic touch, Steri-Strips, and 3M wraps, change this following Saturday. At home wound-care instructions: See above Compression: 3M wraps Off-loading: The patient was instructed to avoid pressure and friction on the affected areas. Reposition every 2 hours at minimum. Avoid prolonged standing and/or dangling of legs. When seated, feet should be elevated at chest level. Frequent ambulation is encouraged. Diet: Patient encouraged to increase protein intake while taking caution to avoid high carbohydrate and/or sugar intake. Smoking: The risks of smoking and benefits of smoking cessation were discussed with the patient today. The patient is encouraged to quit smoking. If smoking cessation aids are desired, the patient should contact their primary care provider to discuss appropriate options. Labs/cultures/imaging: Cultures, lab work, and vascular studies held today will reassess if no improvement. She does have an appointment scheduled with Dr. Quinones on 10/14/2021 Follow-up: Return to clinic in 1 week for re-evaluation. Return sooner or report to the emergency room should symptoms worsen, or new symptoms arise. Given the delayed wound healing and fact that the wound has been present for greater than 4 weeks without improving significantly with wound care, will apply for an advanced skin substitute. This note was generated with [employer] dictation software. It may contain incorrect words, spelling, and punctuation that were not noted in checking the note before signing. I have spent 25 minutes today reviewing labs, records, and history. Time includes coordinating care, interpretation of tests, and counseling the patient/family. This also includes time I spent with the patient for exam, treatment plan, and education as well as documenting clinical information in the electronic health record.
[2021-09-21 15:23] VITALS: BP 145/68; PULSE 72; RESP 16; TEMP 36.1; BMI 27.6
--- NOTE | 2021-09-21 19:07 | PCM.WC.PN ---
History of Present Illness Date of Service: 09/21/21 Chief Complaint: Venous leg ulcer right lower extremity History of Wound: This is a 66-year-old white female who presents to the wound healing center today for evaluation of a wound to her right lower extremity. She has a past medical history as listed above. The patient states approximately 3 weeks ago she developed a wound to her right lower extremity and she is unsure of the cause. She denies any known precipitating events. The patient has been applying Neosporin to the wound daily and covering with gauze, with no improvement in the wound. She denies any signs or symptoms of infection to the wound. She does state that initially she squeezed around the wound and yellow discharge came out, but that it has not been draining since then. She reports a past history of varicose veins to her bilateral lower extremities, and states she does not wear compression stockings because they have irritated her knees in the past. She also has a past medical history of chronic venous insufficiency and would like a referral to Dr. Quinones. She denies any other concerns at this time. Past medical, family, and social history reviewed and not pertinent to the current visit and all other systems reviewed and negative with exception of those listed above. Progress of Wound: Wound size is stable, given the delayed wound healing, first application ofnushield applied today and 3M wraps today, no new concerns, cultures collected today and patient does have an upcoming appointment with Dr. Quinones in vascular Objective Data Objective Data Vital Signs: Vital Signs Temp Pulse Resp BP 97.0 F L 72 16 145/68 H 09/21/21 15:23 09/21/21 15:23 09/21/21 15:23 09/21/21 15:23 Weight: 176 lb Body Mass Index (BMI) 27.6 Charges/Coding Procedures Integumentary 150xxx-152xx: [id number] Skin sub graft trnk/arm/leg Physical Exam Const alert, oriented x3, no apparent distress, healthy appearing and well nourished General Appearance: cooperative Exam Limitations: no limitations HEENT normocephalic Head and Scalp: normal to inspection Mouth: oral and palatal mucosa normal Eyes General Eye: normal appearance of both eyes Resp normal respiratory effort, normal air movement and no use of accessory muscles Effort and Inspection: able to speak in complete sentences Auscultation: clear to auscultation bilaterally Cardio regular rate, regular rhythm, S1 normal heart sound, S2 normal heart sound, no murmurs and peripheral pulses 2+ throughout Palpation: normal PMI Rate: regular rate Heart Sounds: S1 normal and S2 normal GI normal to inspection, nondistended, normoactive bowel sounds, soft to palpation, non-tender and non-distended Palpation: soft Extremity normal to inspection and full ROM Extremity Narrative: Chronic venous changes present to bilateral lower extremities with large varicosities present bilateral lower extremities General Extremity: normal exam except as noted Skin Skin Narrative: Nonhealing venous leg ulcer to right lower extremity with adherent slough, no signs of obvious infection at this time Neuro oriented x3 and moves all extremities Sensorium / Orientation: awake, alert, oriented to person, oriented to place and oriented to time Psych mental status grossly normal, thought process normal and denies hallucinations Appearance: grossly normal Attitude: calm Activity / Motor Behavior: appropriate eye contact Speech: normal speech Thought Process: normal thought process Thought Content: normal thought content Attention / Concentration: attention grossly intact Insight: insight good Judgement: judgement good Debridement Note Debridement Note Wound debrided: Right VL U Laterality: Right Type of Debridement: Selective debridement Anesthesia Used: 5% Lidocaine Gel Depth: Down to and including healthy tissue and in the subcutaneous layer Percentage of wound debrided: 100 Instrument Used: 5mm curette Tissue Removed: Slough and devitalized tissue Severity: Fat Layer Exposed Amount of bleeding with debridement: Mild Bleeding Controlled with: Pressure Patient tolerated procedure: Patient tolerated procedure well Post-Debridement Measurements and Additional Note: Post-Debridement Measurements/Treatment WC - Nurse 1 - General Ulcer Assessment Start: 08/31/21 14:59 Freq: Status: Active Protocol: KALYAN Activity Type Activity Date Activity User E-Sign Co-Sign Detail Recorded Client Recorded Date Recorded By Document 08/31/21 14:59 AK [id number] 08/31/21 15:18 AK Document 09/07/21 15:09 DL [id number] 09/07/21 15:17 DL Document 09/14/21 15:12 ML [id number] 09/14/21 15:18 ML Document 09/21/21 15:23 ML [id number] 09/21/21 15:38 ML 08/31/21 09/07/21 09/14/21 14:59 15:09 15:12 WC - Today's Visit Information Type of service Initial Visit Follow-up Visit Follow-up Visit (Physician/PACKAGE DELIVERY ROOM SERVICE RUNNER (Physician/PACKAGE DELIVERY ROOM SERVICE RUNNER ) ) Arrival Mode Ambulatory Ambulatory Ambulatory Transfer Assistance None None Patient Identification Verified (Name & Yes Yes Yes ) Patient Requires Transmission-Based No No No Precautions Safety Precautions NA Height and Weight Height 5 ft 7 in Weight 176 lb Weight in Pounds 176.0 lbs Body Mass Index (BMI) 27.6 27.6 27.6 BMI Classification Overweight Overweight Overweight BSA - Johanny 1.92 Vital Signs Temperature (97.8 F-99.1 F) 96.2 F L 97.5 F L 97.6 F L Temperature Source Temporal Temporal Temporal Pulse Rate (60-100) 78 86 Pulse Location Monitor Monitor Respiratory Rate (12-18) 18 17 Respiratory rate source Observation Observation Blood Pressure (90/60-120/80) 160/70 H 155/79 H Blood Pressure Mean (mm Hg) 100 104 Source Monitor Monitor Position Blood Pressure Location History Since Last Visit- (Skip if this is Patient's initial visit) Have you changed medications since your No No No last visit? Any new allergies or adverse reactions No No No Had a fall/change in ADL's that may No No No increase risk of falls Signs or symptoms of abuse and/or No No No neglect since last visit Have you been in the hospital since your No No No last visit? Has dressing in place as prescribed Yes Yes Yes Has compression in place as prescribed N/A Yes Yes Has offloadiing in place as prescribed N/A N/A N/A Experienced any changes in pain level or No No No management Left Footwear Regular Shoe Regular Shoe Right Footwear Regular Shoe Regular Shoe Pain Scale: 0-10 Numeric Is Patient Pain Free? Yes Yes Yes 09/21/21 15:23 WC - Today's Visit Information Type of service Follow-up Visit (Physician/PACKAGE DELIVERY ROOM SERVICE RUNNER ) Arrival Mode Ambulatory Transfer Assistance None Patient Identification Verified (Name & Yes ) Patient Requires Transmission-Based No Precautions Safety Precautions NA Height and Weight Height Weight Weight in Pounds Body Mass Index (BMI) 27.6 BMI Classification Overweight BSA - Johanny Vital Signs Temperature (97.8 F-99.1 F) 97.0 F L Temperature Source Temporal Pulse Rate (60-100) 72 Pulse Location Monitor Respiratory Rate (12-18) 16 Respiratory rate source Observation Blood Pressure (90/60-120/80) 145/68 H Blood Pressure Mean (mm Hg) 93 Source Monitor Position Sitting Blood Pressure Location Left Arm History Since Last Visit- (Skip if this is Patient's initial visit) Have you changed medications since your No last visit? Any new allergies or adverse reactions No Had a fall/change in ADL's that may No increase risk of falls Signs or symptoms of abuse and/or No neglect since last visit Have you been in the hospital since your last visit? Has dressing in place as prescribed Yes Has compression in place as prescribed Yes Has offloadiing in place as prescribed Yes Experienced any changes in pain level or No management Left Footwear Regular Shoe Right Footwear Regular Shoe Pain Scale: 0-10 Numeric Is Patient Pain Free? Yes WC - Nurse 1 - General Ulcer Measurement Start: 08/31/21 14:59 Freq: Status: Active Protocol: Activity Type Activity Date Activity User E-Sign Co-Sign Detail Recorded Client Recorded Date Recorded By Document 08/31/21 14:59 AK [id number] 08/31/21 15:18 AK Document 09/07/21 15:09 DL [id number] 09/07/21 15:17 DL Document 09/14/21 15:12 ML [id number] 09/14/21 15:18 ML Document 09/21/21 15:23 ML [id number] 09/21/21 15:38 ML 08/31/21 09/07/21 09/14/21 14:59 15:09 15:12 Wound Center Nurse 1 #1 Right hunter -Combined with other wound No -Current Size (cm) - Length 1 3.5 3.4 -Current Size (cm) - Width 1 1 1.3 -Current Size (cm) - Depth 0.1 0.1 0.1 -Total Square Cm 1 3.5 4.42 -Date of Last Picture (Recall this 08/31/21 field) -Photo Taken Yes No -Epithelialization None Present -Tunneling No -Undermining/Tunneling No -Circular Undermining No -Change in Wound Grade/Stage No -Exudate Amt Small Medium -Exudate Type Serous Serosanguineous Serous -Wound Margin Distinct, Distinct, Distinct, Outline Outline Outline Attached Attached Attached -Granulation Amt None Present (0 Medium (34-66%) %) -Granulation Quality N/A -Slough/Fibrin Yes Yes -Necrosis Amt Small (1-33%) Large (67-100%) Medium (34-66%) -Necrotic Tissue Type Adherent Slough Adherent Slough Adherent Slough -Structure Exposed N/A N/A -Texture (Nicolasa-wound Skin Appearance) Assessed Scarring Assessed -Moisture (Nicolasa-wound Skin Appearance) No Abnormality, No Abnormality No Abnormality Assessed -Color (Nicolasa-wound Skin Appearance) Assessed, No Abnormality Assessed Erythema -Temperature (Nicolasa-wound Skin No Abnormality No Abnormality No Abnormality Appearance) (Pt Warm) (Pt Warm) (Pt Warm) -Tenderness on Palpation (Nicolasa-wound No No Skin Appearance) -Ulcer Cleansing Rinsed/ Rinsed/ Rinsed/ Irrigated with Irrigated with Irrigated with Saline Saline Saline -Foul Odor after Cleansing No No No -Anesthetic Used 4% Lidocaine 4% Lidocaine 5% Lidocaine Solution Solution Gel Right Calf (cm) 39 39 38.5 Right Ankle (cm) 26 24 23.2 Left Calf (cm) 39 Left Ankle (cm) 24.5 09/21/21 15:23 Wound Center Nurse 1 #1 Right hunter -Combined with other wound -Current Size (cm) - Length 3 -Current Size (cm) - Width 1 -Current Size (cm) - Depth 0.1 -Total Square Cm 3 -Date of Last Picture (Recall this field) -Photo Taken -Epithelialization -Tunneling -Undermining/Tunneling -Circular Undermining -Change in Wound Grade/Stage -Exudate Amt Small -Exudate Type Serosanguineous -Wound Margin Distinct, Outline Attached -Granulation Amt Medium (34-66%) -Granulation Quality -Slough/Fibrin Yes -Necrosis Amt Small (1-33%) -Necrotic Tissue Type Adherent Slough -Structure Exposed -Texture (Nicolasa-wound Skin Appearance) Assessed -Moisture (Nicolasa-wound Skin Appearance) Assessed -Color (Nicolasa-wound Skin Appearance) Assessed -Temperature (Nicolasa-wound Skin No Abnormality Appearance) (Pt Warm) -Tenderness on Palpation (Nicolasa-wound Yes Skin Appearance) -Ulcer Cleansing Soap and Water -Foul Odor after Cleansing No -Anesthetic Used 5% Lidocaine Gel Right Calf (cm) 34 Right Ankle (cm) 24 Left Calf (cm) Left Ankle (cm) WC - Nurse 2 - General Ulcer CM Notes Start: 08/31/21 14:59 Freq: Status: Active Protocol: Activity Type Activity Date Activity User E-Sign Co-Sign Detail Recorded Client Recorded Date Recorded By Document 08/31/21 15:28 MW [id number] 08/31/21 15:32 MW Document 09/07/21 15:40 MW [id number] 09/07/21 15:41 MW Document 09/14/21 16:00 MW [id number] 09/14/21 16:16 MW Document 09/21/21 16:06 MW [id number] 09/21/21 16:20 MW 08/31/21 09/07/21 09/14/21 15:28 15:40 16:00 Wound Center Nurse 2 #1 Right hunter -Time 15:29 15:40 16:07 -Correct Patient Yes Yes Yes -Correct Side, Site, Position Yes Yes Yes -Correct Procedure Yes Yes Yes -Procedure Performed Yes Yes Yes -Type of Procedure Debridement Debridement Debridement -Clinical Debridement Subcutaneous Subcutaneous Subcutaneous -Tissue Removed Subcutaneous Subcutaneous Subcutaneous -Post Debridement (cm) - Length 3.5 3.5 3.4 -Post Debridement (cm) - Width 1.8 1.7 1.5 -Post Debridement (cm) - Depth 0.1 0.1 0.1 -Total Square (Post) (cm) 6.30 5.95 5.10 -Area of Debridement (cm) - Length 3.5 3.5 3.4 -Area of Debridement (cm) - Width 1.8 1.7 1.5 -Total Square (Area) (cm) 6.30 5.95 5.10 -Tunneling No No No -Undermining/Tunneling No No No -Circular Undermining No No No -Wound/Ulcer Outcome Not Healed Not Healed Not Healed -Ulcer Cleansing Rinsed/ Rinsed/ Rinsed/ Irrigated with Irrigated with Irrigated with Saline Saline Saline -Foul Odor after Cleansing No No No -Bioengineered Tissue No No Yes -Type of Bioengineered Tissue PuraPly AM -Expiration Date 11/11/23 -Product Lot Number [id number] -Percent Used 100 -Lot number of Saline Used [id number] -Bleeding Controlled with Pressure Pressure Pressure -Treatment Response Procedure Procedure Procedure Tolerated Well Tolerated Well Tolerated Well -Offloading No No No -Debridement - Subq, 1st 20sq cm Yes Yes No -Apply Skin Sub - 1st 25 sq cm - Legs 1 -NuShield (per sq cm) -PuraPly AM (per sq cm) 4 Pain Scale: 0-10 Numeric Is Patient Pain Free? Yes Yes Yes 09/21/21 16:06 Wound Center Nurse 2 #1 Right hunter -Time 16:14 -Correct Patient Yes -Correct Side, Site, Position Yes -Correct Procedure Yes -Procedure Performed Yes -Type of Procedure Debridement -Clinical Debridement Subcutaneous -Tissue Removed Subcutaneous -Post Debridement (cm) - Length 3.5 -Post Debridement (cm) - Width 1.4 -Post Debridement (cm) - Depth 0.1 -Total Square (Post) (cm) 4.90 -Area of Debridement (cm) - Length 3.5 -Area of Debridement (cm) - Width 1.4 -Total Square (Area) (cm) 4.90 -Tunneling No -Undermining/Tunneling No -Circular Undermining No -Wound/Ulcer Outcome Not Healed -Ulcer Cleansing Rinsed/ Irrigated with Saline -Foul Odor after Cleansing No -Bioengineered Tissue No -Type of Bioengineered Tissue NuShield -Expiration Date 04/23/24 -Product Lot Number [id number] -Percent Used 50 -Lot number of Saline Used [id number] -Bleeding Controlled with Pressure -Treatment Response Procedure Tolerated Well -Offloading No -Debridement - Subq, 1st 20sq cm No -Apply Skin Sub - 1st 25 sq cm - Legs 1 -NuShield (per sq cm) 6 -PuraPly AM (per sq cm) Pain Scale: 0-10 Numeric Is Patient Pain Free? Yes - Nurse 3 - General Ulcer D/C NN Start: 08/31/21 14:59 Freq: Status: Active Protocol: Activity Type Activity Date Activity User E-Sign Co-Sign Detail Recorded Client Recorded Date Recorded By Document 08/31/21 15:42 AK [id number] 08/31/21 15:47 AK Document 09/07/21 15:41 MW [id number] 09/07/21 15:43 MW Document 09/14/21 16:16 MW [id number] 09/14/21 16:17 MW Document 09/21/21 16:32 AK [id number] 09/21/21 16:34 AK 08/31/21 09/07/21 09/14/21 15:42 15:41 16:16 Wound Care Nurse 3 #1 Right hunter -Ulcer Cleansing Rinsed/ Rinsed/ Not Cleansed Irrigated with Irrigated with Saline Saline -Foul Odor after Cleansing No No -Negative Pressure Wound Therapy N/A N/A -Primary Dressing Applied NonAdherent Silvercel Contact Layer, Promogran Rhonda Matter -Primary Dressing Covered/Secured with Dry Gauze, Dry Gauze Dry Gauze Secured with Tape -Promogran Rhonda Matter 1 -Silvercel 1 Right -Lotion applied to leg before No No compression wrap -Multi-Layered Wrap Application Multi-Layer Multi-Layer Comp - Right ($ Comp - Right ($ ) ) Treatment Response Procedure Procedure Tolerated Well Tolerated Well Pain Scale: 0-10 Numeric Is Patient Pain Free? Yes Yes Yes Teaching: Wound Center Dressing Your Wound -Person Taught Patient Patient -Teaching Method Discussion Discussion -Response to teaching Verbalize Verbalize understanding understanding WC - Visit Discharge Discharge Condition Stable Stable Stable Ambulatory Status Ambulatory Ambulatory Ambulatory Transportation Private Auto Private Auto Accompanied by self self Medication Reconcilliation completed & Yes No No provided to patient/care provider Clinical Summary of Care Provided Yes Yes Yes 09/21/21 16:32 Wound Care Nurse 3 #1 Right hunter -Ulcer Cleansing -Foul Odor after Cleansing No -Negative Pressure Wound Therapy N/A -Primary Dressing Applied -Primary Dressing Covered/Secured with Dry Gauze, Secured with Tape -Promogran Rhonda Matter -Silvercel Right -Lotion applied to leg before compression wrap -Multi-Layered Wrap Application Multi-Layer Comp - Right ($ ) Treatment Response Pain Scale: 0-10 Numeric Is Patient Pain Free? Yes Teaching: Wound Center Dressing Your Wound -Person Taught -Teaching Method -Response to teaching WC - Visit Discharge Discharge Condition Stable Ambulatory Status Ambulatory Transportation Private Auto Accompanied by Medication Reconcilliation completed & Yes provided to patient/care provider Clinical Summary of Care Provided Yes Assessment/Plan Assessment/Plan (1) Venous ulcer of right leg: CODE(S): I83.019 - Varicose veins of right lower extremity with ulcer of unspecified site; L97.919 - Non-pressure chronic ulcer of unspecified part of right lower leg with unspecified severity (2) Venous insufficiency: CODE(S): I87.2 - Venous insufficiency (chronic) (peripheral) (3) Vascular disease: CODE(S): I99.9 - Unspecified disorder of circulatory system (4) GERD (gastroesophageal reflux disease): CODE(S): K21.9 - Gastro-esophageal reflux disease without esophagitis (5) Hypertension: CODE(S): I10 - Essential (primary) hypertension QUALIFIERS: Hypertension type: essential hypertension Qualified Code(s): I10 - Essential (primary) hypertension PLAN: Debridement performed today in clinic as annotated above. Nushield#1 3 x 4 cm was applied today, 50% was utilized with 50% wastage, this was the smallest nushield product available at the wound center today, this was secured with Adaptic touch, Steri-Strips, and 3M wraps which will be change this following Saturday. Main dressing to be left in place for 1 week. At home wound-care instructions: See above Compression: 3M wraps Off-loading: The patient was instructed to avoid pressure and friction on the affected areas. Reposition every 2 hours at minimum. Avoid prolonged standing and/or dangling of legs. When seated, feet should be elevated at chest level. Frequent ambulation is encouraged. Diet: Patient encouraged to increase protein intake while taking caution to avoid high carbohydrate and/or sugar intake. Smoking: The risks of smoking and benefits of smoking cessation were discussed with the patient today. The patient is encouraged to quit smoking. If smoking cessation aids are desired, the patient should contact their primary care provider to discuss appropriate options. Labs/cultures/imaging: Cultures collected today, lab work, and vascular studies held today will reassess if no improvement. She does have an appointment scheduled with Dr. Quinnoes on 10/14/2021 Follow-up: Return to clinic in 1 week for re-evaluation. Return sooner or report to the emergency room should symptoms worsen, or new symptoms arise. Given the delayed wound healing and fact that the wound has been present for greater than 4 weeks without improving significantly with wound care, will apply for an advanced skin substitute. This note was generated with [employer], a division of [employer] dictation software. It may contain incorrect words, spelling, and punctuation that were not noted in checking the note before signing. I have spent 25 minutes today reviewing labs, records, and history. Time includes coordinating care, interpretation of tests, and counseling the patient/family. This also includes time I spent with the patient for exam, treatment plan, and education as well as documenting clinical information in the electronic health record.
[2021-09-28 13:47] VITALS: BP 139/63; PULSE 75; RESP 17; TEMP 36.1; BMI 27.6
--- NOTE | 2021-09-28 16:50 | PN.PCM_ITS ---
History of Present Illness Date of Service: 09/28/21 Chief Complaint: Venous leg ulcer right lower extremity History of Wound: This is a 66-year-old white female who presents to the wound healing center today for evaluation of a wound to her right lower extremity. She has a past medical history as listed above. The patient states approximately 3 weeks ago she developed a wound to her right lower extremity and she is unsure of the cause. She denies any known precipitating events. The patient has been applying Neosporin to the wound daily and covering with gauze, with no improvement in the wound. She denies any signs or symptoms of infection to the wound. She does state that initially she squeezed around the wound and yellow discharge came out, but that it has not been draining since then. She reports a past history of varicose veins to her bilateral lower extremities, and states she does not wear compression stockings because they have irritated her knees in the past. She also has a past medical history of chronic venous insufficiency and would like a referral to Dr. Quinones. She denies any other concerns at this time. Past medical, family, and social history reviewed and not pertinent to the current visit and all other systems reviewed and negative with exception of those listed above. Progress of Wound: Wound size is stable, first application of nushield left in place today and 3M wraps today, no new concerns, cultures collected prior and negative and patient does have an upcoming appointment with Dr. Quinones in vascular Objective Data Objective Data Vital Signs: Vital Signs Temp Pulse Resp BP 96.9 F L 75 17 139/63 H 09/28/21 13:47 09/28/21 13:47 09/28/21 13:47 09/28/21 13:47 Weight: 176 lb Body Mass Index (BMI) 27.6 Lab / Micro Data Micro: Microbiology 09/21/21 16:00 Wound Abcess - Leg, Right Gram Stain - Final 09/21/21 16:00 Wound Abcess - Leg, Right Wound Culture - Final No growth aerobically. 09/21/21 16:00 Wound Abcess - Leg, Right Anaerobic Culture - Final No growth in 5 days. Charges/Coding Visit Charges Office Visits / Consults: [id number] OV L2 Est Physical Exam Const alert, oriented x3, no apparent distress, healthy appearing and well nourished General Appearance: cooperative Exam Limitations: no limitations HEENT normocephalic Head and Scalp: normal to inspection Mouth: oral and palatal mucosa normal Eyes General Eye: normal appearance of both eyes Resp normal respiratory effort, normal air movement and no use of accessory muscles Effort and Inspection: able to speak in complete sentences Auscultation: clear to auscultation bilaterally Cardio regular rate, regular rhythm, S1 normal heart sound, S2 normal heart sound, no murmurs and peripheral pulses 2+ throughout Palpation: normal PMI Rate: regular rate Heart Sounds: S1 normal and S2 normal GI normal to inspection, nondistended, normoactive bowel sounds, soft to palpation, non-tender and non-distended Palpation: soft Extremity normal to inspection and full ROM Extremity Narrative: Chronic venous changes present to bilateral lower extremities with large varicosities present bilateral lower extremities General Extremity: normal exam except as noted Skin Skin Narrative: Nonhealing venous leg ulcer to right lower extremity with adherent slough, nushield left in place, no signs of obvious infection at this time Neuro oriented x3 and moves all extremities Sensorium / Orientation: awake, alert, oriented to person, oriented to place and oriented to time Psych mental status grossly normal, thought process normal and denies hallucinations Appearance: grossly normal Attitude: calm Activity / Motor Behavior: appropriate eye contact Speech: normal speech Thought Process: normal thought process Thought Content: normal thought content Attention / Concentration: attention grossly intact Insight: insight good Judgement: judgement good Debridement Note Debridement Note No debridement was completed: No debridement was completed today Post-Debridement Measurements and Additional Note: Post-Debridement Measurements/Treatment LYLA - Nurse 1 - General Ulcer Assessment Start: 08/31/21 14:59 Freq: Status: Active Protocol: KALYAN Activity Type Activity Date Activity User E-Sign Co-Sign Detail Recorded Client Recorded Date Recorded By Document 08/31/21 14:59 AK [id number] 08/31/21 15:18 AK Document 09/07/21 15:09 DL [id number] 09/07/21 15:17 DL Document 09/14/21 15:12 ML [id number] 09/14/21 15:18 ML Document 09/21/21 15:23 ML [id number] 09/21/21 15:38 ML Document 09/28/21 13:47 ML [id number] 09/28/21 13:49 ML 08/31/21 09/07/21 09/14/21 14:59 15:09 15:12 WC - Today's Visit Information Type of service Initial Visit Follow-up Visit Follow-up Visit (Physician/CERTIFIED WELDING INSPECTOR (Physician/CERTIFIED WELDING INSPECTOR ) ) Arrival Mode Ambulatory Ambulatory Ambulatory Transfer Assistance None None Patient Identification Verified (Name & Yes Yes Yes ) Patient Requires Transmission-Based No No No Precautions Safety Precautions NA Height and Weight Height 5 ft 7 in Weight 176 lb Weight in Pounds 176.0 lbs Body Mass Index (BMI) 27.6 27.6 27.6 BMI Classification Overweight Overweight Overweight BSA - Johanny 1.92 Vital Signs Temperature (97.8 F-99.1 F) 96.2 F L 97.5 F L 97.6 F L Temperature Source Temporal Temporal Temporal Pulse Rate (60-100) 78 86 Pulse Location Monitor Monitor Respiratory Rate (12-18) 18 17 Respiratory rate source Observation Observation Blood Pressure (90/60-120/80) 160/70 H 155/79 H Blood Pressure Mean (mm Hg) 100 104 Source Monitor Monitor Position Blood Pressure Location History Since Last Visit- (Skip if this is Patient's initial visit) Have you changed medications since your No No No last visit? Any new allergies or adverse reactions No No No Had a fall/change in ADL's that may No No No increase risk of falls Signs or symptoms of abuse and/or No No No neglect since last visit Have you been in the hospital since your No No No last visit? Has dressing in place as prescribed Yes Yes Yes Has compression in place as prescribed N/A Yes Yes Has offloadiing in place as prescribed N/A N/A N/A Experienced any changes in pain level or No No No management Left Footwear Regular Shoe Regular Shoe Right Footwear Regular Shoe Regular Shoe Pain Scale: 0-10 Numeric Is Patient Pain Free? Yes Yes Yes 09/21/21 09/28/21 15:23 13:47 WC - Today's Visit Information Type of service Follow-up Visit Follow-up Visit (Physician/CERTIFIED WELDING INSPECTOR (Physician/CERTIFIED WELDING INSPECTOR ) ) Arrival Mode Ambulatory Ambulatory Transfer Assistance None None Patient Identification Verified (Name & Yes Yes ) Patient Requires Transmission-Based No No Precautions Safety Precautions NA NA Height and Weight Height Weight Weight in Pounds Body Mass Index (BMI) 27.6 27.6 BMI Classification Overweight Overweight BSA - Johanny Vital Signs Temperature (97.8 F-99.1 F) 97.0 F L 96.9 F L Temperature Source Temporal Temporal Pulse Rate (60-100) 72 75 Pulse Location Monitor Monitor Respiratory Rate (12-18) 16 17 Respiratory rate source Observation Observation Blood Pressure (90/60-120/80) 145/68 H 139/63 H Blood Pressure Mean (mm Hg) 93 88 Source Monitor Monitor Position Sitting Sitting Blood Pressure Location Left Arm Left Arm History Since Last Visit- (Skip if this is Patient's initial visit) Have you changed medications since your No No last visit? Any new allergies or adverse reactions No No Had a fall/change in ADL's that may No No increase risk of falls Signs or symptoms of abuse and/or No neglect since last visit Have you been in the hospital since your No last visit? Has dressing in place as prescribed Yes Yes Has compression in place as prescribed Yes N/A Has offloadiing in place as prescribed Yes N/A Experienced any changes in pain level or No No management Left Footwear Regular Shoe Regular Shoe Right Footwear Regular Shoe Regular Shoe Pain Scale: 0-10 Numeric Is Patient Pain Free? Yes Yes WC - Nurse 1 - General Ulcer Measurement Start: 08/31/21 14:59 Freq: Status: Active Protocol: Activity Type Activity Date Activity User E-Sign Co-Sign Detail Recorded Client Recorded Date Recorded By Document 08/31/21 14:59 AK [id number] 08/31/21 15:18 AK Document 09/07/21 15:09 DL [id number] 09/07/21 15:17 DL Document 09/14/21 15:12 ML [id number] 09/14/21 15:18 ML Document 09/21/21 15:23 ML [id number] 09/21/21 15:38 ML Document 09/28/21 13:47 ML [id number] 09/28/21 13:49 ML 08/31/21 09/07/21 09/14/21 14:59 15:09 15:12 Wound Center Nurse 1 #1 Right hunter -Combined with other wound No -Current Size (cm) - Length 1 3.5 3.4 -Current Size (cm) - Width 1 1 1.3 -Current Size (cm) - Depth 0.1 0.1 0.1 -Total Square Cm 1 3.5 4.42 -Date of Last Picture (Recall this 08/31/21 field) -Photo Taken Yes No -Epithelialization None Present -Tunneling No -Undermining/Tunneling No -Circular Undermining No -Change in Wound Grade/Stage No -Exudate Amt Small Medium -Exudate Type Serous Serosanguineous Serous -Wound Margin Distinct, Distinct, Distinct, Outline Outline Outline Attached Attached Attached -Granulation Amt None Present (0 Medium (34-66%) %) -Granulation Quality N/A -Slough/Fibrin Yes Yes -Necrosis Amt Small (1-33%) Large (67-100%) Medium (34-66%) -Necrotic Tissue Type Adherent Slough Adherent Slough Adherent Slough -Structure Exposed N/A N/A -Texture (Nicolasa-wound Skin Appearance) Assessed Scarring Assessed -Moisture (Nicolasa-wound Skin Appearance) No Abnormality, No Abnormality No Abnormality Assessed -Color (Nicolasa-wound Skin Appearance) Assessed, No Abnormality Assessed Erythema -Temperature (Nicolasa-wound Skin No Abnormality No Abnormality No Abnormality Appearance) (Pt Warm) (Pt Warm) (Pt Warm) -Tenderness on Palpation (Nicolasa-wound No No Skin Appearance) -Ulcer Cleansing Rinsed/ Rinsed/ Rinsed/ Irrigated with Irrigated with Irrigated with Saline Saline Saline -Foul Odor after Cleansing No No No -Anesthetic Used 4% Lidocaine 4% Lidocaine 5% Lidocaine Solution Solution Gel Right Calf (cm) 39 39 38.5 Right Ankle (cm) 26 24 23.2 Left Calf (cm) 39 Left Ankle (cm) 24.5 09/21/21 09/28/21 15:23 13:47 Wound Center Nurse 1 #1 Right hunter -Combined with other wound -Current Size (cm) - Length 3 -Current Size (cm) - Width 1 -Current Size (cm) - Depth 0.1 -Total Square Cm 3 -Date of Last Picture (Recall this field) -Photo Taken -Epithelialization -Tunneling -Undermining/Tunneling -Circular Undermining -Change in Wound Grade/Stage -Exudate Amt Small -Exudate Type Serosanguineous -Wound Margin Distinct, Outline Attached -Granulation Amt Medium (34-66%) -Granulation Quality -Slough/Fibrin Yes -Necrosis Amt Small (1-33%) -Necrotic Tissue Type Adherent Slough -Structure Exposed -Texture (Nicolasa-wound Skin Appearance) Assessed -Moisture (Nicolasa-wound Skin Appearance) Assessed -Color (Nicolasa-wound Skin Appearance) Assessed -Temperature (Nicolasa-wound Skin No Abnormality Appearance) (Pt Warm) -Tenderness on Palpation (Nicolasa-wound Yes Skin Appearance) -Ulcer Cleansing Soap and Water -Foul Odor after Cleansing No -Anesthetic Used 5% Lidocaine Gel Right Calf (cm) 34 37 Right Ankle (cm) 24 23 Left Calf (cm) Left Ankle (cm) WC - Nurse 2 - General Ulcer CM Notes Start: 08/31/21 14:59 Freq: Status: Active Protocol: Activity Type Activity Date Activity User E-Sign Co-Sign Detail Recorded Client Recorded Date Recorded By Document 08/31/21 15:28 MW [id number] 08/31/21 15:32 MW Document 09/07/21 15:40 MW [id number] 09/07/21 15:41 MW Document 09/14/21 16:00 MW [id number] 09/14/21 16:16 MW Document 09/21/21 16:06 MW [id number] 09/21/21 16:20 MW Document 09/28/21 13:36 MW [id number] 09/28/21 13:37 MW 08/31/21 09/07/21 09/14/21 15:28 15:40 16:00 Wound Center Nurse 2 #1 Right hunter -Time 15:29 15:40 16:07 -Correct Patient Yes Yes Yes -Correct Side, Site, Position Yes Yes Yes -Correct Procedure Yes Yes Yes -Procedure Performed Yes Yes Yes -Type of Procedure Debridement Debridement Debridement -Clinical Debridement Subcutaneous Subcutaneous Subcutaneous -Tissue Removed Subcutaneous Subcutaneous Subcutaneous -Post Debridement (cm) - Length 3.5 3.5 3.4 -Post Debridement (cm) - Width 1.8 1.7 1.5 -Post Debridement (cm) - Depth 0.1 0.1 0.1 -Total Square (Post) (cm) 6.30 5.95 5.10 -Area of Debridement (cm) - Length 3.5 3.5 3.4 -Area of Debridement (cm) - Width 1.8 1.7 1.5 -Total Square (Area) (cm) 6.30 5.95 5.10 -Tunneling No No No -Undermining/Tunneling No No No -Circular Undermining No No No -Wound/Ulcer Outcome Not Healed Not Healed Not Healed -Ulcer Cleansing Rinsed/ Rinsed/ Rinsed/ Irrigated with Irrigated with Irrigated with Saline Saline Saline -Foul Odor after Cleansing No No No -Bioengineered Tissue No No Yes -Type of Bioengineered Tissue PuraPly AM -Expiration Date 11/11/23 -Product Lot Number [id number] -Percent Used 100 -Lot number of Saline Used [id number] -Bleeding Controlled with Pressure Pressure Pressure -Treatment Response Procedure Procedure Procedure Tolerated Well Tolerated Well Tolerated Well -Offloading No No No -Debridement - Subq, 1st 20sq cm Yes Yes No -Apply Skin Sub - 1st 25 sq cm - Legs 1 -NuShield (per sq cm) -PuraPly AM (per sq cm) 4 Pain Scale: 0-10 Numeric Is Patient Pain Free? Yes Yes Yes 09/21/21 09/28/21 16:06 13:36 Wound Center Nurse 2 #1 Right hunter -Time 16:14 13:36 -Correct Patient Yes Yes -Correct Side, Site, Position Yes Yes -Correct Procedure Yes Yes -Procedure Performed Yes No -Type of Procedure Debridement -Clinical Debridement Subcutaneous -Tissue Removed Subcutaneous -Post Debridement (cm) - Length 3.5 -Post Debridement (cm) - Width 1.4 -Post Debridement (cm) - Depth 0.1 -Total Square (Post) (cm) 4.90 -Area of Debridement (cm) - Length 3.5 -Area of Debridement (cm) - Width 1.4 -Total Square (Area) (cm) 4.90 -Tunneling No No -Undermining/Tunneling No No -Circular Undermining No No -Wound/Ulcer Outcome Not Healed Not Healed -Ulcer Cleansing Rinsed/ Irrigated with Saline -Foul Odor after Cleansing No -Bioengineered Tissue No -Type of Bioengineered Tissue NuShield -Expiration Date 04/23/24 -Product Lot Number [id number] -Percent Used 50 -Lot number of Saline Used [id number] -Bleeding Controlled with Pressure -Treatment Response Procedure Tolerated Well -Offloading No -Debridement - Subq, 1st 20sq cm No -Apply Skin Sub - 1st 25 sq cm - Legs 1 -NuShield (per sq cm) 6 -PuraPly AM (per sq cm) Pain Scale: 0-10 Numeric Is Patient Pain Free? Yes Yes WC - Nurse 3 - General Ulcer D/C NN Start: 08/31/21 14:59 Freq: Status: Active Protocol: Activity Type Activity Date Activity User E-Sign Co-Sign Detail Recorded Client Recorded Date Recorded By Document 08/31/21 15:42 AK [id number] 08/31/21 15:47 AK Document 09/07/21 15:41 MW [id number] 09/07/21 15:43 MW Document 09/14/21 16:16 MW [id number] 09/14/21 16:17 MW Document 09/21/21 16:32 AK [id number] 09/21/21 16:34 AK Document 09/28/21 13:47 ML [id number] 09/28/21 13:47 ML 08/31/21 09/07/21 09/14/21 15:42 15:41 16:16 Wound Care Nurse 3 #1 Right hunter -Ulcer Cleansing Rinsed/ Rinsed/ Not Cleansed Irrigated with Irrigated with Saline Saline -Foul Odor after Cleansing No No -Negative Pressure Wound Therapy N/A N/A -Primary Dressing Applied NonAdherent Silvercel Contact Layer, Promogran Rhonda Matter -Primary Dressing Covered/Secured with Dry Gauze, Dry Gauze Dry Gauze Secured with Tape -Promogran Rhonda Matter 1 -Silvercel 1 Right -Lotion applied to leg before No No compression wrap -Multi-Layered Wrap Application Multi-Layer Multi-Layer Comp - Right ($ Comp - Right ($ ) ) Treatment Response Procedure Procedure Tolerated Well Tolerated Well Pain Scale: 0-10 Numeric Is Patient Pain Free? Yes Yes Yes Teaching: Wound Center Dressing Your Wound -Person Taught Patient Patient -Teaching Method Discussion Discussion -Response to teaching Verbalize Verbalize understanding understanding WC - Visit Discharge Discharge Condition Stable Stable Stable Ambulatory Status Ambulatory Ambulatory Ambulatory Transportation Private Auto Private Auto Accompanied by self self Medication Reconcilliation completed & Yes No No provided to patient/care provider Clinical Summary of Care Provided Yes Yes Yes 09/21/21 09/28/21 16:32 13:47 Wound Care Nurse 3 #1 Right hunter -Ulcer Cleansing -Foul Odor after Cleansing No -Negative Pressure Wound Therapy N/A -Primary Dressing Applied -Primary Dressing Covered/Secured with Dry Gauze, Dry Gauze & Secured with Roll Gauze, Tape Secured with Tape -Promogran Rhonda Matter -Silvercel Right -Lotion applied to leg before compression wrap -Multi-Layered Wrap Application Multi-Layer Comp - Right ($ ) Treatment Response Pain Scale: 0-10 Numeric Is Patient Pain Free? Yes Yes Teaching: Wound Center Dressing Your Wound -Person Taught -Teaching Method -Response to teaching WC - Visit Discharge Discharge Condition Stable Ambulatory Status Ambulatory Transportation Private Auto Accompanied by Medication Reconcilliation completed & Yes provided to patient/care provider Clinical Summary of Care Provided Yes Assessment/Plan Assessment/Plan (1) Venous ulcer of right leg: CODE(S): I83.019 - Varicose veins of right lower extremity with ulcer of unspecified site; L97.919 - Non-pressure chronic ulcer of unspecified part of right lower leg with unspecified severity (2) Venous insufficiency: CODE(S): I87.2 - Venous insufficiency (chronic) (peripheral) (3) Vascular disease: CODE(S): I99.9 - Unspecified disorder of circulatory system (4) GERD (gastroesophageal reflux disease): CODE(S): K21.9 - Gastro-esophageal reflux disease without esophagitis (5) Hypertension: CODE(S): I10 - Essential (primary) hypertension QUALIFIERS: Hypertension type: essential hypertension Qualified Code(s): I10 - Essential (primary) hypertension PLAN: [facility] left in place today, cover with aquacell extra. At home wound-care instructions: See above Compression: 3M wraps Off-loading: The patient was instructed to avoid pressure and friction on the affected areas. Reposition every 2 hours at minimum. Avoid prolonged standing and/or dangling of legs. When seated, feet should be elevated at chest level. Frequent ambulation is encouraged. Diet: Patient encouraged to increase protein intake while taking caution to avoid high carbohydrate and/or sugar intake. Smoking: The risks of smoking and benefits of smoking cessation were discussed with the patient today. The patient is encouraged to quit smoking. If smoking cessation aids are desired, the patient should contact their primary care provider to discuss appropriate options. Labs/cultures/imaging: Cultures collected prior and negative, lab work, and vascular studies held today will reassess if no improvement. She does have an appointment scheduled with Dr. Quinones on 10/14/2021 Follow-up: Return to clinic in 1 week for re-evaluation. Return sooner or report to the emergency room should symptoms worsen, or new symptoms arise. Given the delayed wound healing and fact that the wound has been present for greater than 4 weeks without improving significantly with wound care, will apply for an advanced skin substitute. This note was generated with [employer] dictation software. It may contain incorrect words, spelling, and punctuation that were not noted in checking the note before signing. I have spent 25 minutes today reviewing labs, records, and history. Time includes coordinating care, interpretation of tests, and counseling the patient/family. This also includes time I spent with the patient for exam, treatment plan, and education as well as documenting clinical information in the electronic health record.
== END 2021-09-28 23:59 | disposition home or self-care (01) ==
LOC: WC 13:00
PROVIDERS: PCP Family Medicine; Visit Provider Nurse Practitioner Family
DX: I83.018 Varicose veins of right lower extremity with ulcer other part of lower leg (principal); L97.812 Non-pressure chronic ulcer of other part of right lower leg with fat layer exposed; I10 Essential (primary) hypertension; I87.2 Venous insufficiency (chronic) (peripheral); E78.5 Hyperlipidemia, unspecified; K21.9 Gastro-esophageal reflux disease without esophagitis; F17.200 Nicotine dependence, unspecified, uncomplicated; Z79.1 Long term (current) use of non-steroidal anti-inflammatories (NSAID); Z79.899 Other long term (current) drug therapy
CPT/HCPCS: 11042; 15271; 29581; 87070; 87075; 87205; 99213; Q4160; Q4196; G0463

== ENCOUNTER 2021-10-20 10:00 | Outpatient (RCR) | payer MEDICARE, SELFPAY ==
[2021-09-29 00:46] VITALS: BP 139/63; PULSE 75; RESP 17; TEMP 36.1; BMI 27.6
[2021-10-06 10:19] VITALS: BP 150/64; PULSE 73; RESP 18; TEMP 36.6; BMI 27.6
--- NOTE | 2021-10-06 14:27 | PCM.WC.PN ---
History of Present Illness Date of Service: 10/06/21 Chief Complaint: Venous leg ulcer right lower extremity History of Wound: This is a 66-year-old white female who presents to the wound healing center today for evaluation of a wound to her right lower extremity. She has a past medical history as listed above. The patient states approximately 4 weeks ago she developed a wound to her right lower extremity and she is unsure of the cause. She denies any known precipitating events. The patient has been applying Neosporin to the wound daily and covering with gauze, with no improvement in the wound. She denies any signs or symptoms of infection to the wound. She does state that initially she squeezed around the wound and yellow discharge came out, but that it has not been draining since then. She reports a past history of varicose veins to her bilateral lower extremities, and states she does not wear compression stockings because they have irritated her knees in the past. She also has a past medical history of chronic venous insufficiency and would like a referral to Dr. Quinones. She denies any other concerns at this time. Past medical, family, and social history reviewed and not pertinent to the current visit and all other systems reviewed and negative with exception of those listed above. Subjective Subjective She is seen as a courtesy visit for Refugio Doyle CNP. Wound size is improved, she tolerated first application of Nushield. No new concerns, cultures collected prior and negative and patient does have an upcoming appointment with Dr. Quinones in vascular. Objective Data Objective Data Vital Signs: Vital Signs Temp Pulse Resp BP 98 F 73 18 150/64 H 10/06/21 10:19 10/06/21 10:19 10/06/21 10:19 10/06/21 10:19 Oxygen Delivery Method Room Air Weight: 79.832 kg Body Mass Index (BMI) 27.6 Physical Exam Const alert, oriented x3 and no apparent distress General Appearance: cooperative and comfortable HEENT normocephalic and head/scalp atraumatic Resp normal respiratory effort Effort and Inspection: able to speak in complete sentences Cardio regular rate and regular rhythm Skin Wounds: wounds noted Wound Narrative: as in clinical panel Psych mental status grossly normal, thought process normal, cooperative and affect normal Debridement Note Debridement Note Wound debrided: right hunter Laterality: Right Type of Debridement: Excisional debridement Anesthesia Used: 4% Lidocaine Solution and Cetacaine Depth: Down to and including healthy tissue and in the subcutaneous layer Percentage of wound debrided: 100 Instrument Used: 5mm curette Tissue Removed: Yellow slough, devitalized tissue Severity: Fat Layer Exposed Amount of bleeding with debridement: Mild Bleeding Controlled with: Compression and gauze Patient tolerated procedure: Patient tolerated procedure well Post-Debridement Measurements and Additional Note: Post-Debridement Measurements/Treatment - Nurse 1 - General Ulcer Assessment Start: 10/06/21 10:18 Freq: Status: Active Protocol: KALYAN Activity Type Activity Date Activity User E-Sign Co-Sign Detail Recorded Client Recorded Date Recorded By Document 10/06/21 10:19 WA [id number] 10/06/21 10:30 WA 10/06/21 10:19 - Today's Visit Information Type of service Follow-up Visit (Physician/URINALYSIS TECHNICIAN ) Arrival Mode Ambulatory Accompanied by self Patient Identification Verified (Name & Yes ) Height and Weight Body Mass Index (BMI) 27.6 BMI Classification Overweight Vital Signs Temperature (97.8 F-99.1 F) 98 F Temperature Source Temporal Pulse Rate (60-100) 73 Pulse Location Monitor Respiratory Rate (12-18) 18 Respiratory rate source Observation Oxygen Delivery Method Room Air Blood Pressure (90/60-120/80) 150/64 H Blood Pressure Mean (mm Hg) 92 Source Monitor Position Semi-Fowlers Blood Pressure Location Right Arm History Since Last Visit- (Skip if this is Patient's initial visit) Has dressing in place as prescribed Yes Has compression in place as prescribed Yes Has offloadiing in place as prescribed N/A Experienced any changes in pain level or No management Left Footwear Regular Shoe Right Footwear Regular Shoe Pain Scale: 0-10 Numeric Is Patient Pain Free? Yes [facility] Nurse 1 - General Ulcer Measurement Start: 10/06/21 10:18 Freq: Status: Active Protocol: Activity Type Activity Date Activity User E-Sign Co-Sign Detail Recorded Client Recorded Date Recorded By Document 10/06/21 10:19 WA [id number] 10/06/21 10:30 WA 10/06/21 10:19 Wound Center Nurse 1 #1 Right hunter -Current Size (cm) - Length 0.5 -Current Size (cm) - Width 0.5 -Current Size (cm) - Depth 0.5 -Total Square Cm 0.25 -Exudate Amt None Present -Wound Margin Flat & Intact -Granulation Amt Large (67-100%) -Granulation Quality Pale,[place] -Necrosis Amt Small (1-33%) -Necrotic Tissue Type Eschar -Texture (Nicolasa-wound Skin Appearance) Assessed -Moisture (Nicolasa-wound Skin Appearance) Assessed -Color (Nicolasa-wound Skin Appearance) Assessed -Temperature (Nicolasa-wound Skin No Abnormality Appearance) (Pt Warm) -Tenderness on Palpation (Nicolasa-wound No Skin Appearance) -Ulcer Cleansing Rinsed/ Irrigated with Saline -Foul Odor after Cleansing No -Anesthetic Used 4% Lidocaine Solution Right Calf (cm) 37 Right Ankle (cm) 23 WC - Nurse 2 - General Ulcer CM Notes Start: 10/06/21 10:18 Freq: Status: Active Protocol: Activity Type Activity Date Activity User E-Sign Co-Sign Detail Recorded Client Recorded Date Recorded By Document 10/06/21 10:39 MW [id number] 10/06/21 10:57 MW 10/06/21 10:39 Wound Center Nurse 2 #1 Right hunter -Time 10:42 -Correct Patient Yes -Correct Side, Site, Position Yes -Correct Procedure Yes -Procedure Performed Yes -Type of Procedure Debridement -Clinical Debridement Subcutaneous -Tissue Removed Subcutaneous -Post Debridement (cm) - Length 0.8 -Post Debridement (cm) - Width 0.4 -Post Debridement (cm) - Depth 0.1 -Total Square (Post) (cm) 0.32 -Area of Debridement (cm) - Length 0.8 -Area of Debridement (cm) - Width 0.4 -Total Square (Area) (cm) 0.32 -Tunneling No -Undermining/Tunneling No -Circular Undermining No -Wound/Ulcer Outcome Not Healed -Ulcer Cleansing Rinsed/ Irrigated with Saline -Foul Odor after Cleansing No -Bioengineered Tissue Yes -Type of Bioengineered Tissue NuShield Disc -Expiration Date 02/25/26 -Product Lot Number [id number] -Percent Used 100 -Lot number of Saline Used [id number] -Bleeding Controlled with Pressure -Treatment Response Procedure Tolerated Well -Offloading No -Debridement - Subq, 1st 20sq cm No -Apply Skin Sub - 1st 25 sq cm - Legs 1 -NuShield 16mm Disc 2 Pain Scale: 0-10 Numeric Is Patient Pain Free? Yes - Nurse 3 - General Ulcer D/C NN Start: 10/06/21 10:18 Freq: Status: Active Protocol: Activity Type Activity Date Activity User E-Sign Co-Sign Detail Recorded Client Recorded Date Recorded By Document 10/06/21 11:05 WA [id number] 10/06/21 11:09 WA 10/06/21 11:05 Wound Care Nurse 3 #1 Right hunter -Other Dressing nushield -Primary Dressing Covered/Secured with Dry Gauze, Secured with Tape Right -Multi-Layered Wrap Application Multi-Layer Comp - Right ($ ) Pain Scale: 0-10 Numeric Is Patient Pain Free? Yes WC - Visit Discharge Discharge Condition Stable Ambulatory Status Ambulatory Transportation Private Auto Clinical Summary of Care Provided Yes Assessment/Plan Assessment/Plan (1) Venous ulcer of right leg: CODE(S): I83.019 - Varicose veins of right lower extremity with ulcer of unspecified site; L97.919 - Non-pressure chronic ulcer of unspecified part of right lower leg with unspecified severity (2) Venous insufficiency: CODE(S): I87.2 - Venous insufficiency (chronic) (peripheral) (3) Vascular disease: CODE(S): I99.9 - Unspecified disorder of circulatory system (4) Hyperlipidemia: CODE(S): E78.5 - Hyperlipidemia, unspecified QUALIFIERS: Hyperlipidemia type: mixed hyperlipidemia Qualified Code(s): E78.2 - Mixed hyperlipidemia (5) Hypertension: CODE(S): I10 - Essential (primary) hypertension QUALIFIERS: Hypertension type: essential hypertension Qualified Code(s): I10 - Essential (primary) hypertension PLAN: At home wound-care instructions: Do not change dressing until Saturday. Compression: 3M wraps Geneva's ulcer was evaluated and debrided today at the wound center. She was seen as a courtesy visit for Refugio Doyle CNP. Nushield #2 (#3 of product application) was applied per customer program specialist guidelines and rehydrated with hydrogel and covered with adaptic touch and secured with steri-strips. Pt. tolerated procedure well. Off-loading: The patient was instructed to avoid pressure and friction on the affected areas. Reposition every 2 hours at minimum. Avoid prolonged standing and/or dangling of legs. When seated, feet should be elevated at chest level. Frequent ambulation is encouraged. Diet: Patient encouraged to increase protein intake while taking caution to avoid high carbohydrate and/or sugar intake. Smoking: The risks of smoking and benefits of smoking cessation were discussed with the patient today. The patient is encouraged to quit smoking. If smoking cessation aids are desired, the patient should contact their primary care provider to discuss appropriate options. Labs/cultures/imaging: Cultures collected prior and negative, lab work, and vascular studies held today will reassess if no improvement. She does have an appointment scheduled with Dr. Quinones on 10/14/2021 Follow-up: Return to clinic in 1 week for re-evaluation. Return sooner or report to the emergency room should symptoms worsen, or new symptoms arise. Given the delayed wound healing and fact that the wound has been present for greater than 4 weeks without improving significantly with wound care, will apply for an advanced skin substitute.
[2021-10-13 10:21] VITALS: BP 137/79; PULSE 72; RESP 18; TEMP 36; BMI 27.6
--- NOTE | 2021-10-13 12:50 | PN.PCM_ITS ---
History of Present Illness Date of Service: 10/13/21 Chief Complaint: Venous leg ulcer right lower extremity History of Wound: This is a 66-year-old white female who presents to the wound healing center today for evaluation of a wound to her right lower extremity. She has a past medical history as listed above. The patient states approximately 4 weeks ago she developed a wound to her right lower extremity and she is unsure of the cause. She denies any known precipitating events. The patient has been applying Neosporin to the wound daily and covering with gauze, with no improvement in the wound. She denies any signs or symptoms of infection to the wound. She does state that initially she squeezed around the wound and yellow discharge came out, but that it has not been draining since then. She reports a past history of varicose veins to her bilateral lower extremities, and states she does not wear compression stockings because they have irritated her knees in the past. She also has a past medical history of chronic venous insufficiency and would like a referral to Dr. Quinones. She denies any other concerns at this time. Past medical, family, and social history reviewed and not pertinent to the current visit and all other systems reviewed and negative with exception of those listed above. Subjective Subjective Wound size is improved, she tolerated second application of Nushield. No increased drainage, erythema or pain. Objective Data Objective Data Vital Signs: Vital Signs Temp Pulse Resp BP 96.8 F L 72 18 137/79 H 10/13/21 10:21 10/13/21 10:21 10/13/21 10:21 10/13/21 10:21 Oxygen Delivery Method Room Air Weight: 79.832 kg Body Mass Index (BMI) 27.6 Physical Exam Const alert, oriented x3 and no apparent distress General Appearance: cooperative and comfortable HEENT normocephalic and head/scalp atraumatic Resp normal respiratory effort Effort and Inspection: able to speak in complete sentences Cardio regular rate and regular rhythm Skin Wounds: wounds noted Wound Narrative: as in clinical panel Psych mental status grossly normal, thought process normal, cooperative and affect normal Debridement Note Debridement Note Wound debrided: right hunter Laterality: Right Type of Debridement: Excisional debridement Anesthesia Used: 4% Lidocaine Solution Depth: Down to and including healthy tissue and in the subcutaneous layer Percentage of wound debrided: 100 Instrument Used: 3mm curette Tissue Removed: Yellow slough, devitalized tissue Severity: Fat Layer Exposed Amount of bleeding with debridement: Mild Bleeding Controlled with: Compression and gauze Patient tolerated procedure: Patient tolerated procedure well Post-Debridement Measurements and Additional Note: Post-Debridement Measurements/Treatment - Nurse 1 - General Ulcer Assessment Start: 10/06/21 10:18 Freq: Status: Active Protocol: KALYAN Activity Type Activity Date Activity User E-Sign Co-Sign Detail Recorded Client Recorded Date Recorded By Document 10/06/21 10:19 MT [id number] 10/06/21 10:30 MT Document 10/13/21 10:21 DL [id number] 10/13/21 10:30 DL 10/06/21 10/13/21 10:19 10:21 WC - Today's Visit Information Type of service Follow-up Visit Follow-up Visit (Physician/CRIMINAL RESEARCH SPECIALIST (Physician/CRIMINAL RESEARCH SPECIALIST ) ) Arrival Mode Ambulatory Ambulatory Transfer Assistance None Accompanied by self Patient Identification Verified (Name & Yes Yes ) Patient Requires Transmission-Based No Precautions Height and Weight Body Mass Index (BMI) 27.6 27.6 BMI Classification Overweight Overweight Vital Signs Temperature (97.8 F-99.1 F) 98 F 96.8 F L Temperature Source Temporal Temporal Pulse Rate (60-100) 73 72 Pulse Location Monitor Monitor Respiratory Rate (12-18) 18 18 Respiratory rate source Observation Observation Oxygen Delivery Method Room Air Blood Pressure (90/60-120/80) 150/64 H 137/79 H Blood Pressure Mean (mm Hg) 92 98 Source Monitor Monitor Position Semi-Fowlers Blood Pressure Location Right Arm History Since Last Visit- (Skip if this is Patient's initial visit) Have you changed medications since your No last visit? Any new allergies or adverse reactions No Had a fall/change in ADL's that may No increase risk of falls Signs or symptoms of abuse and/or No neglect since last visit Have you been in the hospital since your No last visit? Has dressing in place as prescribed Yes Yes Has compression in place as prescribed Yes Yes Has offloadiing in place as prescribed N/A N/A Experienced any changes in pain level or No No management Left Footwear Regular Shoe Right Footwear Regular Shoe Pain Scale: 0-10 Numeric Is Patient Pain Free? Yes Yes - Nurse 1 - General Ulcer Measurement Start: 10/06/21 10:18 Freq: Status: Active Protocol: Activity Type Activity Date Activity User E-Sign Co-Sign Detail Recorded Client Recorded Date Recorded By Document 10/06/21 10:19 MT [id number] 10/06/21 10:30 MT Document 10/13/21 10:21 DL [id number] 10/13/21 10:30 DL 10/06/21 10/13/21 10:19 10:21 Wound Center Nurse 1 #1 Right hunter -Current Size (cm) - Length 0.5 0.6 -Current Size (cm) - Width 0.5 0.3 -Current Size (cm) - Depth 0.5 0.1 -Total Square Cm 0.25 0.18 -Photo Taken No -Exudate Amt None Present Small -Exudate Type Serosanguineous -Wound Margin Flat & Intact Distinct, Outline Attached -Granulation Amt Large (67-100%) Small (1-33%) -Granulation Quality Pale,[place] -Necrosis Amt Small (1-33%) None Present (0 %) -Necrotic Tissue Type Eschar -Structure Exposed N/A -Texture (Nicloasa-wound Skin Appearance) Assessed Scarring -Moisture (Nicolasa-wound Skin Appearance) Assessed Dry/Scaly -Color (Nicolasa-wound Skin Appearance) Assessed Hemosiderin Staining -Temperature (Nicolasa-wound Skin No Abnormality No Abnormality Appearance) (Pt Warm) (Pt Warm) -Tenderness on Palpation (Nicolasa-wound No No Skin Appearance) -Ulcer Cleansing Rinsed/ Soap and Water Irrigated with Saline -Foul Odor after Cleansing No No -Anesthetic Used 4% Lidocaine 5% Lidocaine Solution Gel Right Calf (cm) 37 37.5 Right Ankle (cm) 23 23.2 WC - Nurse 2 - General Ulcer CM Notes Start: 10/06/21 10:18 Freq: Status: Active Protocol: Activity Type Activity Date Activity User E-Sign Co-Sign Detail Recorded Client Recorded Date Recorded By Document 10/06/21 10:39 MW [id number] 10/06/21 10:57 MW Document 10/13/21 10:35 MW [id number] 10/13/21 10:47 MW 10/06/21 10/13/21 10:39 10:35 Wound Center Nurse 2 #1 Right hunter -Time 10:42 10:44 -Correct Patient Yes Yes -Correct Side, Site, Position Yes Yes -Correct Procedure Yes Yes -Procedure Performed Yes Yes -Type of Procedure Debridement Debridement -Clinical Debridement Subcutaneous Subcutaneous -Tissue Removed Subcutaneous Subcutaneous -Post Debridement (cm) - Length 0.8 0.4 -Post Debridement (cm) - Width 0.4 0.4 -Post Debridement (cm) - Depth 0.1 0.1 -Total Square (Post) (cm) 0.32 0.16 -Area of Debridement (cm) - Length 0.8 0.4 -Area of Debridement (cm) - Width 0.4 0.4 -Total Square (Area) (cm) 0.32 0.16 -Tunneling No No -Undermining/Tunneling No No -Circular Undermining No No -Wound/Ulcer Outcome Not Healed Not Healed -Ulcer Cleansing Rinsed/ Rinsed/ Irrigated with Irrigated with Saline Saline -Foul Odor after Cleansing No No -Bioengineered Tissue Yes No -Type of Bioengineered Tissue NuShield Disc -Expiration Date 02/25/26 -Product Lot Number [id number] -Percent Used 100 -Lot number of Saline Used [id number] -Bleeding Controlled with Pressure Pressure -Treatment Response Procedure Procedure Tolerated Well Tolerated Well -Offloading No -Debridement - Subq, 1st 20sq cm No Yes -Apply Skin Sub - 1st 25 sq cm - Legs 1 -NuShield 16mm Disc 2 Pain Scale: 0-10 Numeric Is Patient Pain Free? Yes Yes WC - Nurse 3 - General Ulcer D/C NN Start: 10/06/21 10:18 Freq: Status: Active Protocol: Activity Type Activity Date Activity User E-Sign Co-Sign Detail Recorded Client Recorded Date Recorded By Document 10/06/21 11:05 MT [id number] 10/06/21 11:09 MT Document 10/13/21 10:58 MW [id number] 10/13/21 10:59 MW 10/06/21 10/13/21 11:05 10:58 Wound Care Nurse 3 #1 Right hunter -Ulcer Cleansing Rinsed/ Irrigated with Saline -Foul Odor after Cleansing No -Negative Pressure Wound Therapy N/A -Primary Dressing Applied C Hydrogel ($) -Other Dressing nushield -Primary Dressing Covered/Secured with Dry Gauze, Dry Gauze, Secured with Secured with Tape Tape Right -Lotion applied to leg before No compression wrap -Multi-Layered Wrap Application Multi-Layer Comp - Right ($ ) -Tubular Bandage Double Layer -Size of Tubigrip Used Size E -Size E ($) 2 Pain Scale: 0-10 Numeric Is Patient Pain Free? Yes Yes Teaching: Wound Center Dressing Your Wound -Person Taught Patient -Teaching Method Discussion, Demonstration -Response to teaching Verbalize understanding WC - Visit Discharge Discharge Condition Stable Stable Ambulatory Status Ambulatory Ambulatory Transportation Private Auto Private Auto Accompanied by SELF Medication Reconcilliation completed & No provided to patient/care provider Clinical Summary of Care Provided Yes Yes Assessment/Plan Assessment/Plan (1) Venous ulcer of right leg: CODE(S): I83.019 - Varicose veins of right lower extremity with ulcer of unspecified site; L97.919 - Non-pressure chronic ulcer of unspecified part of right lower leg with unspecified severity (2) Venous insufficiency: CODE(S): I87.2 - Venous insufficiency (chronic) (peripheral) (3) Vascular disease: CODE(S): I99.9 - Unspecified disorder of circulatory system (4) Hyperlipidemia: CODE(S): E78.5 - Hyperlipidemia, unspecified QUALIFIERS: Hyperlipidemia type: mixed hyperlipidemia Qualified Code(s): E78.2 - Mixed hyperlipidemia (5) Hypertension: CODE(S): I10 - Essential (primary) hypertension QUALIFIERS: Hypertension type: essential hypertension Qualified Code(s): I10 - Essential (primary) hypertension PLAN: At home wound-care instructions: Do not change dressing until Saturday. Compression: double layer tubigrips Geneva's ulcer was evaluated and debrided today at the wound center. Pt. tolerated procedure well. Will have her dress the ulcer with hydrogel and gauze changed daily. Off-loading: The patient was instructed to avoid pressure and friction on the affected areas. Reposition every 2 hours at minimum. Avoid prolonged standing and/or dangling of legs. When seated, feet should be elevated at chest level. Frequent ambulation is encouraged. Diet: Patient encouraged to increase protein intake while taking caution to avoid high carbohydrate and/or sugar intake. Smoking: The risks of smoking and benefits of smoking cessation were discussed with the patient today. The patient is encouraged to quit smoking. If smoking cessation aids are desired, the patient should contact their primary care provider to discuss appropriate options. Labs/cultures/imaging: Cultures collected prior and negative, lab work, and vascular studies held today will reassess if no improvement. She does have an appointment scheduled with Dr. Quinones on 10/14/2021 Follow-up: Return to clinic in 1 week for re-evaluation. Return sooner or report to the emergency room should symptoms worsen, or new symptoms arise. Given the delayed wound healing and fact that the wound has been present for greater than 4 weeks without improving significantly with wound care, will apply for an advanced skin substitute.
[2021-10-20 10:08] VITALS: BP 150/63; PULSE 76; TEMP 36.1; BMI 27.6
--- NOTE | 2021-10-20 16:00 | PCM.WC.PN ---
History of Present Illness Date of Service: 10/20/21 Chief Complaint: Venous leg ulcer right lower extremity History of Wound: This is a 66-year-old white female who presents to the wound healing center today for evaluation of a wound to her right lower extremity. She has a past medical history as listed above. The patient states approximately 4 weeks ago she developed a wound to her right lower extremity and she is unsure of the cause. She denies any known precipitating events. The patient has been applying Neosporin to the wound daily and covering with gauze, with no improvement in the wound. She denies any signs or symptoms of infection to the wound. She does state that initially she squeezed around the wound and yellow discharge came out, but that it has not been draining since then. She reports a past history of varicose veins to her bilateral lower extremities, and states she does not wear compression stockings because they have irritated her knees in the past. She also has a past medical history of chronic venous insufficiency and would like a referral to Dr. Quinones. She denies any other concerns at this time. Past medical, family, and social history reviewed and not pertinent to the current visit and all other systems reviewed and negative with exception of those listed above. Subjective Subjective She is healed today. She tolerated dressing with hydrogel and has been using compression. Objective Data Objective Data Vital Signs: Vital Signs Temp Pulse Resp BP 96.9 F L 76 18 150/63 H 10/20/21 10:08 10/20/21 10:08 10/13/21 10:21 10/20/21 10:08 Oxygen Delivery Method Room Air Weight: 79.832 kg Body Mass Index (BMI) 27.6 Physical Exam Const alert, oriented x3 and no apparent distress General Appearance: cooperative and comfortable HEENT normocephalic and head/scalp atraumatic Resp normal respiratory effort Effort and Inspection: able to speak in complete sentences Cardio regular rate and regular rhythm Skin Wounds: wounds noted Wound Narrative: as in clinical panel Psych mental status grossly normal, thought process normal, cooperative and affect normal Debridement Note Debridement Note Wound debrided: right hunter Laterality: Right Type of Debridement: Selective debridement Anesthesia Used: 4% Lidocaine Solution Depth: Down to and including healthy tissue Instrument Used: 3mm curette Tissue Removed: Yellow slough, devitalized tissue Severity: Limited To Skin Breakdown Amount of bleeding with debridement: None Patient tolerated procedure: Patient tolerated procedure well Assessment/Plan Assessment/Plan (1) Venous ulcer of right leg: CODE(S): I83.019 - Varicose veins of right lower extremity with ulcer of unspecified site; L97.919 - Non-pressure chronic ulcer of unspecified part of right lower leg with unspecified severity (2) Venous insufficiency: CODE(S): I87.2 - Venous insufficiency (chronic) (peripheral) (3) Vascular disease: CODE(S): I99.9 - Unspecified disorder of circulatory system (4) Hyperlipidemia: CODE(S): E78.5 - Hyperlipidemia, unspecified QUALIFIERS: Hyperlipidemia type: mixed hyperlipidemia Qualified Code(s): E78.2 - Mixed hyperlipidemia (5) Hypertension: CODE(S): I10 - Essential (primary) hypertension QUALIFIERS: Hypertension type: essential hypertension Qualified Code(s): I10 - Essential (primary) hypertension PLAN: Herber ulcer is healed. Compression: Continue double layer tubigrip or compression stocking at 20-30 mm Hg daily upon rising and remove before bed. Off-loading: The patient was instructed to avoid pressure and friction on the affected areas. Reposition every 2 hours at minimum. Avoid prolonged standing and/or dangling of legs. When seated, feet should be elevated at chest level. Frequent ambulation is encouraged. Diet: Patient encouraged to increase protein intake while taking caution to avoid high carbohydrate and/or sugar intake. Smoking: The risks of smoking and benefits of smoking cessation were discussed with the patient today. The patient is encouraged to quit smoking. If smoking cessation aids are desired, the patient should contact their primary care provider to discuss appropriate options. Labs/cultures/imaging: Cultures collected prior and negative, lab work, and vascular studies held today will reassess if no improvement. She saw Dr. Quinones and he plans on proceeding with venous ablation. Follow-up: Return to clinic as needed.
== END 2021-10-20 13:36 | disposition home or self-care (01) ==
LOC: WC 10:00
PROVIDERS: PCP Family Medicine; Visit Provider Family Medicine
DX: I83.018 Varicose veins of right lower extremity with ulcer other part of lower leg (principal); L97.812 Non-pressure chronic ulcer of other part of right lower leg with fat layer exposed; I10 Essential (primary) hypertension; E78.2 Mixed hyperlipidemia; Z79.1 Long term (current) use of non-steroidal anti-inflammatories (NSAID); Z79.899 Other long term (current) drug therapy
CPT/HCPCS: 11042; 15271; 29581; 99213; Q4160; G0463

== ENCOUNTER 2022-06-29 14:45 | Emergency (ER) | payer MEDICARE, SELFPAY ==
[2022-06-29 14:47] VITALS: BP 180/80; PULSE 64; RESP 18; TEMP 36.6; O2SAT 99; BMI 27.4
[2022-06-29 15:56] VITALS: BP 156/71
--- NOTE | 2022-06-29 16:59 | EDS_ITS ---
HPI History of Present Illness Chief Complaint: Hypertension Detail of Chief Complaint: Instructed to come to the emergency room because of high blood pressure Informant: patient Onset/Context/Timing Onset: Today and Hours Context: Sudden Onset Timing: Intermittent Quality: High blood pressure after varicose bleed right leg Location: Varicose vein bleed anterior right leg Current Severity: Gone Maximum Severity: Moderate Worsened by: Nothing Relieved by: Pressure Associated Symptoms Associated Symptoms: None Narrative Narrative: Patient is a six 7-year-old woman with history of hypertension. She states she is compliant with her meds. Because she had a blood pressure of 180 she was instructed to come to the emergency department. She denies headache, visual, ocular auditory symptoms. Denies ringing in ears or decreased hearing. She denies trouble with speech or swallowing. She denies paresthesia, anesthesia or motor weakness upper or lower extremity. Denies problem with coordination or balance. Prior similar symptoms: No Recent Illness/Hospitalization: No PFSH PFS Medical History Arthritis Back problem Carpal tunnel syndrome Cataracts, bilateral GERD (gastroesophageal reflux disease) Heart valve disorder Hyperlipidemia Hypertension Vascular disease Venous insufficiency Venous ulcer of right leg Home Medications esomeprazole magnesium 20 mg capsule,delayed release 22.3 mg PO DAILY 12/08/16 [History Last Taken Unknown] acetaminophen 325 mg capsule (Tylenol) 650 mg PO BID PRN 11/20/18 [History Last Taken Unknown] diclofenac sodium 1 % topical gel (Voltaren) 4 g topical ONCE #100 grams 11/20/18 [Rx Last Taken Unknown] multivitamin 1 tab PO DAILY 11/20/18 [History Last Taken Unknown] valsartan 320 mg tablet 160 mg PO BID #180 tabs 05/10/21 [Rx Last Taken Unknown] rosuvastatin 40 mg tablet 40 mg PO QHS #90 tabs 06/15/21 [Rx Last Taken Unknown] pantoprazole 40 mg tablet,delayed release (Protonix) 40 mg PO DAILY #90 tabs 11/09/21 [Rx Last Taken Unknown] hydrochlorothiazide 25 mg tablet 25 mg PO QAM #90 tabs 01/26/22 [Rx Last Taken Unknown] halobetasol propionate 0.05 % topical cream 1 applic topical BID #50 grams 02/01/22 [Rx Last Taken Unknown] metoprolol tartrate 50 mg tablet (Lopressor) 50 mg PO TID 90 days #270 tabs 04/26/22 [Rx Last Taken Unknown] duloxetine 60 mg capsule,delayed release (Cymbalta) 60 mg PO DAILY #90 caps 06/08/22 [Rx Last Taken Unknown] Allergy/AdvReac Type Severity Reaction Status Date / Time No Known Allergies Allergy Verified 06/29/22 15:56 Family History Mother Arthritis CVA (cerebral vascular accident) Father Arthritis Myocardial infarction Heart disease Social History (Updated 06/29/22 @ 17:[address] Tanner Cameron MD) household members: spouse Smoking Status: Current every day smoker tobacco type: cigarettes alcohol intake: former details: Several years substance use type: does not use what type of physical activity do you participate in: none ROS ROS ED Constitutional Constitutional ED: Denies chills, fever(s), subjective, sweats or weight loss Eyes Eyes: Denies blurry vision, change in vision or diplopia ENT ENT ED: Denies ear pain, rhinorrhea or sore throat Cardiovascular Cardiovascular: Denies chest pain, orthopnea, palpitations, paroxysmal nocturnal dyspnea or racing heartbeat Respiratory/Chest Respiratory/Chest: Denies cough, dyspnea, dyspnea on exertion, orthopnea or paroxysmal nocturnal dyspnea Gastrointestinal Gastrointestinal: Denies abdominal pain, nausea or vomiting Genitourinary Genitourinary ED: Denies dysuria, hematuria or urinary frequency Musculoskeletal Musculoskeletal: Denies arthralgias, back pain, myalgias or neck pain Integumentary Denies Abrasions or rash Neurologic Neurologic: Denies headache(s), paresthesias or weakness Psychiatric Psychiatric: Reports anxiety; Denies depression Hematologic/Lymphatic Hematologic/Lymphatic: Reports systems reviewed and no addt'l complaints, except as documented EXAM Physical Exam Const Vital Signs: 06/29/22 14:47 06/29/22 15:56 06/29/22 15:57 Temperature 97.9 F Temperature Source Temporal Pulse Rate 64 Respiratory Rate 18 Respiratory Effort Normal Non-Labored Respiratory Pattern Normal Blood Pressure 180/80 H 156/71 H Blood Pressure Mean 113 99 Pulse Ox 99 Oxygen Delivery Method Room Air Positive well nourished and well developed General Appearance ED: well developed and NAD; Negative for cyanotic, diaphoretic or pallor HEENT Reports moist mucous membranes HEENT Narrative: Head is atraumatic no cephalic. Ears normal. Nares patent. Mucosa moist. Uvula midline. No deviation or protrusion. Eyes PERRL and EOMs intact bilaterally General Eye ED: Negative for pale conjunctiva or scleral icterus Neck no lymphadenopathy, supple and no JVD Chest Wall inspection of chest normal and palpation of chest normal Resp normal respiratory effort and clear to auscultation bilaterally Cardio regular rate, regular rhythm, S1 normal heart sound, S2 normal heart sound and no murmurs GI normal to inspection, nondistended, normoactive bowel sounds, non-tender, non- distended and no masses; Negative for hepatosplenomegaly Extremity normal to inspection General Extremety ED: Negative for edema or tenderness General Extremity: Negative for edema Neuro oriented x3 and CN's II-XII intact bilaterally Neuro Narrative: Negative clonus and Babinski sign. Sensorium / Orientation: alert Motor Exam: strength 5/5 throughout Psych mental status grossly normal Skin no rashes or lesions noted, no wounds and skin turgor normal Skin Narrative: She has site of varicose bleed which has now stopped. This is distal anterior right lower General Skin Exam: Negative for jaundice or pallor MDM MDM MDM Narrative Medical decision making narrative: SPECT patient had transient hypotension due to anxiety reaction to the bleeding. Since her pressures come down with no treatment and bleeding stopped plan is to discharge to home. Discharge Plan Triage Chief Complaint: Hypertension ED Provider: Tanner Cameron Dx/Rx/DC Orders Clinical Impression: Bleeding from varicose veins of right lower extremity, Transient hypertension Instructions: ED Hypertension, Established, ED Varicose Veins Prescriptions: No Action multivitamin tablet 1 tab PO DAILY acetaminophen [Tylenol] 325 mg capsule 650 mg PO BID PRN diclofenac sodium [Voltaren] 1 % gel 4 g TOPICAL ONCE Qty: 100 1RF Rx Instructions: apply to Knees, Daily valsartan 320 mg tablet 160 mg PO BID Qty: 180 1RF Rx Instructions: one half tablet twice daily halobetasol propionate 0.05 % cream 1 applic topical BID Qty: 50 3RF esomeprazole magnesium 22.3 MG capsule,delayed release(DR/EC) 22.3 mg PO DAILY Hold Instructions: Home Medication placed on hold at Doctor's office rosuvastatin 40 mg tablet 40 mg PO QHS Qty: 90 3RF pantoprazole [Protonix] 40 mg tablet,delayed release (DR/EC) 40 mg PO DAILY Qty: 90 2RF hydrochlorothiazide 25 mg tablet 25 mg PO QAM Qty: 90 3RF metoprolol tartrate [Lopressor] 50 mg tablet 50 mg PO TID 90 Days Qty: 270 1RF duloxetine [Cymbalta] 60 mg capsule,delayed release(DR/EC) 60 mg PO DAILY Qty: 90 3RF Primary Care Provider: Lenny Hansen Referrals: Lenny Hansen, [Primary Care Provider] - As Needed Disposition Disposition: Home, Self Care
[2022-06-29 17:13] VITALS: BP 158/70
[2022-06-29 17:16] VITALS: BP 158/80; RESP 18
== END 2022-06-29 17:17 | disposition home or self-care (01) ==
PROVIDERS: Emergency Provider Emergency Medicine; PCP Family Medicine; Visit Provider Emergency Medicine
DX: I10 Essential (primary) hypertension (principal); I83.891 Varicose veins of right lower extremity with other complications; E78.5 Hyperlipidemia, unspecified; F17.210 Nicotine dependence, cigarettes, uncomplicated
CPT/HCPCS: 99284

== ENCOUNTER → 2022-07-16 | Outpatient (CLI) | payer MEDICARE, SELFPAY ==
--- NOTE | 2022-07-16 14:14 | VDLE_ITS ---
Reason For Study: Pain RIGHT LEFT CFV is compressible, spontaneous, phasic, CFV is compressible, spontaneous, phasic, competent and demonstrates normal competent, and demonstrates normal augmentation. augmentation. FV is compressible, spontaneous, phasic, FV is compressible, spontaneous, phasic, competent and demonstrates normal competent and demonstrates normal augmentation. augmentation. POP V is compressible, spontaneous, phasic, POP V is compressible, spontaneous, phasic, competent and demonstrates normal competent and demonstrates normal augmentation. augmentation. T/P Trunk is compressible. T/P Trunk is compressible. PTV is compressible. PTV is compressible. RT PerV is compressible. LT PerV is compressible. SFJ is INCOMPETENT and measures 0.95 x 0.92 SFJ is INCOMPETENT and measures 0.34 x 0.36 cm. cm. GSV proximal thigh measures 0.79 x 0.79 cm. GSV proximal thigh measures 0.52 x 0.57 cm. GSV at knee measures 0.23 x 0.23 cm. GSV at knee measures 0.28 x 0.28 cm. GSV INCOMPETENT throughout for greater than GSV INCOMPETENT throughout for greater than 0.5 seconds. 0.5 seconds. ASV distal thigh is INCOMPETENT for greater ASV mid thigh is INCOMPETENT for greater than than 0.5 seconds and measures 1.02 x 1.12 cm. 0.5 seconds and measures 0.70 x 0.70 cm. ASV at knee is INCOMPETENT for greater than ASV proximal calf is INCOMPETENT for greater 0.5 seconds and measures 0.30 x 0.34 cm. than 0.5 seconds and measures 0.34 x 0.34 cm. ASV mid calf is INCOMPETENT for greater than SSV at junction is competent and measures 0.5 seconds and measures 0.39 x 0.38 cm. 0.17 x 0.17 cm. SSV at junction is competent and measures ASV2 at mid thigh is INCOMPETENT for greater 0.36 x 0.37 cm. than 0.5 seconds and measures 0.61 x 0.64 cm. Procedure INCOMPETENT cleaning matron noted 8 cm above knee. This is a venous duplex using B-mode, color INCOMPETENT cleaning matron noted 11 cm above flow and spectral Doppler. medial malleolus. Exam performed in department. Patient was scanned in reverse Trendelenburg Thrombus filled varicose vein noted at the position during reflux assessment. prox calf. A preliminary report was called and/or faxed to [facility]. VL/Venous Duplex US - Chris Extrem Interpretation Summary Deep veins of the bilateral lower extremities are patent and compressible segme ntally. There is no evidence of bilateral lower extremity deep vein thrombosis. The bilateral great saphenous veins appear patent and compressible segmentally. Acute superficial vein thrombus noted in left calf varicosities. Positive for reflux in the right saphenofemoral junction, greater saphenous vei n, accessory saphenous vein. Positive for reflux in the left saphenofemoral junction, greater saphenous vein , accessory saphenous vein, and multiple perforators. Ordering Physician: Tamiko Rivas Referring Physician: Harpreet Hansen M.D. Performed By: Mouna Rivero RVT
--- NOTE | 2022-07-16 14:14 | CDU_ITS ---
Reason For Study: Bruit Rt. Velocities/BP Lt. Velocities/BP Prox CCA 78.7/16.3 cm/sec. Prox CCA 88.3/15.7 cm/sec. Mid CCA 93.8/20.1 cm/sec. Mid CCA 92.7/16.8 cm/sec. Dist CCA 66.3/19 cm/sec. Dist CCA 86.1/17.9 cm/sec. Prox ICA 130.2/31.6 cm/sec. Prox ICA 67.9/16.3 cm/sec. Mid ICA 93.7/27.9 cm/sec. Mid ICA 83.9/18.8 cm/sec. Dist ICA 106.5/33.4 cm/sec. Dist ICA 70.4/17.6 cm/sec. Rt. ICA/CCA = 1.65. Lt. ICA/CCA = 0.95. Prox ECA 90.5/9.1 cm/sec. Prox ECA 109.7/10.2 cm/sec. Rt. Vert. 74/13.5 cm/sec. Lt. Vert. 50.9/11.3 cm/sec. Right Extracranial There is homogeneous, smooth atherosclerotic plaque noted in the right common carotid artery. There is heterogeneous, irregular atherosclerotic plaque noted in the right internal carotid artery. There is heterogeneous, irregular atherosclerotic plaque noted in the right external carotid artery. Antegrade flow is noted in the right vertebral artery. Left Extracranial There is homogeneous, smooth atherosclerotic plaque noted in the left common carotid artery. There is heterogeneous, irregular atherosclerotic plaque noted in the left internal carotid artery. There is heterogeneous, irregular atherosclerotic plaque noted in the left external carotid artery. Antegrade flow is noted in the left vertebral artery. Procedure Carotid Duplex [id number]. This is a Carotid Duplex examination using B-mode, color flow and specral Doppler. Exam performed in department. VL/Carotid Duplex Ultrasound Interpretation Summary Moderate (50-69%) stenosis right extracranial internal carotid. Mild (<50%) stenosis left extracranial internal carotid. Patent and antegrade vertebrals bilaterally. Ordering Physician: Tamiko Rivas Referring Physician: Harpreet Hansen M.D. Performed By: Mouna Rivero RVT
== END | disposition home or self-care (01) ==
LOC: CVS 14:13
PROVIDERS: PCP Family Medicine; Visit Provider Physician Assistant
DX: I65.23 Occlusion and stenosis of bilateral carotid arteries (principal); I83.891 Varicose veins of right lower extremity with other complications; I82.812 Embolism and thrombosis of superficial veins of left lower extremity
CPT/HCPCS: 93880; 93970

== ENCOUNTER 2022-08-21 07:00 | Day surgery (SDC) | payer MEDICARE, SELFPAY ==
[2022-08-21 07:26] LABS: Hemoglobin 12.6 g/dL (12.0-15.0); Mean Corp Hgb Conc 32.3 g/dL (32-36); Mean Corpuscular Hgb 29.9 pg (27.0-32.0); Mean Corpuscular Volume 92.6 fL (81-99); Mean Platelet Vol. 9.8 fl (6.2-12.0); Platelet Count 277 K/mm3 (150-450); RBC Distribution Width CV 12.7 % (11.6-14.6); RBC Distribution Width SD 43.2 fl (35.1-43.9); Red Blood Count 4.21 M/mm3 (4.2-5.4); White Blood Count 9.2 K/mm3 (4.4-11.0)
[2022-08-21 07:51] VITALS: BMI 27.6
[2022-08-21 07:54] LABS: Anion Gap 6 (5-15); BUN 26 mg/dL (7-18); Calcium,Total 9.9 mg/dL (8.5-10.1); Chloride 106 mmol/L (98-107); EST Glomerular Filtration Rate 59 mL/min (>60); Est Glom Filt Rate - Afr Amer 71 mL/min (>60); Estimated Creatinine Clearance 51.11 ml/min; Glucose 122 mg/dL (74-106); Potassium 4.1 mmol/L (3.5-5.1); Sodium Level 140 mmol/L (136-145)
--- NOTE | 2022-08-21 10:30 | OP.PCM_ITS ---
Report of Operation Date of Procedure: 08/21/22 Pre-Operative Diagnosis: venous insufficiency Post-Operative Diagnosis: bilateral common iliac vein compression Surgery/Procedure Performed:: IVC venogram IVUS IVC, bilateral common iliac veins, bilateral external iliac veins Angioplasty/stent bilateral common iliac veins Surgeon: Mo Coronado Type of Anesthesia: Local and Sedation,Conscious Estimated Blood Loss (mL): 5 Description of Procedure: HPI: Patient is a 67-year-old female with longstanding venous insufficiency symptoms of the bilateral lower extremities, with chronic active wound of the right lower extremity. She had noninvasive venous reflux studies which revealed reflux bilaterally. Given the severity of her venous symptoms however she is felt to be appropriate for evaluation for central venous obstruction. She is taken now for venogram with possible intervention. Description of procedure: Upon obtaining form consent and verification correct patient procedure site the patient was taken the [employer] where she was positioned prepped and draped in usual sterile fashion. Time out was then performed and conscious sedation administered with Versed and fentanyl. Skin was anesthetized overlying the right common femoral vein and access obtained in retrograde fashion using micropuncture needle wire under ultrasound guidance. Micropuncture needle was then exchanged out for micropuncture sheath through which injection venogram was performed revealed satisfactory position. Through the micropuncture sheath Bentson wire was advanced and the micropuncture sheath exchanged out for a short 5 Nicaraguan sheath to dilate the tract followed by exchange for an 8 [place]uan sheath. Through the 8 [place]ar[place] sheath an intravascular ultrasound probe was advanced into the vena cava and recorded pullback of the IVC and the right common and external iliac veins performed. This revealed significant compression of the right common iliac vein of greater than 50%. Next the skin overlying the left common femoral vein was anesthetized with 1% lidocaine and micropuncture needle and wire used to access under ultrasound guidance. This was then exchanged out for micropuncture sheath through which hand-injection venogram was performed revealed satisfactory positioning. Through the micropuncture sheath Bentson wire was advanced and the micro sheath exchanged out for short 5 [place]araguan sheath to dilate the tract which was then exchanged medially for a 10 [place] sheath. Finally of the right femoral 8 [place]araguan sheath exchanged out for a 10 [place] sheath. Patient was then heparinized allowed to circulate for 3 minutes. Intravascular ultrasound was advanced via the left femoral access sheath which was then positioned in the inferior vena cava and recorded pullback performed. Evaluation of the inferior vena cava left common and external iliac veins revealed significant compression of greater than 50% of the left common iliac vein as well. Sizing was obtained from our ultrasound imaging and a pair of 18 x 90 wallstents were felt to be appropriate for each of the iliac vein compressions. These were then advanced in the position centered at the point of compression with the inferior aspect just above the internal /external iliac vein confluence. These were then deployed in position and postdilated with a 16 x 40 angioplasty balloons. Hand-injection iliac and IVC venogram revealed good positioning with brisk contrast transit, however there was not satisfactory wall apposition at the inferior aspect of the stents. Intravascular sound was readvanced through each of the femoral sheath which confirmed there was suboptimal wall apposition inferiorly. Next an 18 x 40 angioplasty balloon was advanced first via the right femoral sheath and inflated to nominal at the inferior aspect of the stent, deflated and then advanced via the left femoral access sheath inflated at the inferior aspect of the stent. Intravascular sound was then readvanced which showed better wall apposition and continued satisfactory positioning. Wires and sheath were then withdrawn and manual pressure held for 10 minutes. Afterwards patient was taken to the recovery room with dissipated discharged home. Grafts/Implants Used: 18 x 90 WallStent x 2
== END 2022-08-21 14:00 | disposition home or self-care (01) ==
PROVIDERS: PCP Family Medicine; Referring Provider Surgery Trauma Surgery; Visit Provider Surgery Trauma Surgery
DX: I87.2 Venous insufficiency (chronic) (peripheral) (principal); I10 Essential (primary) hypertension; E78.5 Hyperlipidemia, unspecified; F17.210 Nicotine dependence, cigarettes, uncomplicated; K21.9 Gastro-esophageal reflux disease without esophagitis; Z79.899 Other long term (current) drug therapy; Z79.82 Long term (current) use of aspirin; M79.89 Other specified soft tissue disorders
CPT/HCPCS: 36010; 36005; 36415; 37238; 37252; 37253; 75822; 75825; 76937; 80048; 85027; 99152; 99153; C1725; C1753; C1769; C1894; J7040; C1876; C1887

== ENCOUNTER → 2022-12-13 | Outpatient (CLI) | payer MEDICARE, SELFPAY ==
[2022-12-13 15:49] LABS: ALB/GLOB Ratio 1.2 RATIO (0.9-2.4); AST(SGOT) 15 U/L (15-37); Alanine Aminotransfer ALT/SGPT 21 U/L (13-56); Albumin, Serum 3.6 g/dL (3.2-5.0); Alkaline Phosphatase 85 U/L (45-117); Anion Gap 6 (5-15); BUN 24 mg/dL (7-18); BUN/Creat Ratio 28.1 RATIO (10-20); Calcium,Total 9.2 mg/dL (8.5-10.1); Chloride 105 mmol/L (98-107); Cholesterol 188 mg/dL (200); Creatinine, Serum 0.85 mg/dL (0.55-1.02); EST Glomerular Filtration Rate 70 mL/min (>60); Est Glom Filt Rate - Afr Amer 85 mL/min (>60); Globulin 3.1 g/dL (2.2-4.2); Glucose 136 mg/dL (74-106); High Density Lipoprotein 45 mg/dL; Potassium 4.4 mmol/L (3.5-5.1); Protein, Total 6.7 g/dL (6.4-8.2); Sodium Level 139 mmol/L (136-145); Triglycerides 357 mg/dL; Very Low Density Lipoprotein 71 mg/dL (5-40)
[2022-12-17 11:59] LABS: Hemoglobin A1c 6.1 % (3.8-5.6)
== END | disposition home or self-care (01) ==
LOC: BIMLAB 12:17
PROVIDERS: PCP Family Medicine; Referring Provider Family Medicine; Visit Provider Family Medicine
DX: I10 Essential (primary) hypertension (principal); E78.2 Mixed hyperlipidemia; R73.01 Impaired fasting glucose; I65.29 Occlusion and stenosis of unspecified carotid artery
CPT/HCPCS: 36415; 80053; 80061; 83036

== ENCOUNTER → 2023-03-07 | Outpatient (CLI) | payer MEDICARE, SELFPAY ==
[2023-03-07 12:44] LABS: Anion Gap 6 (5-15); BUN 42 mg/dL (7-18); BUN/Creat Ratio 31.6 RATIO (10-20); Calcium,Total 9.1 mg/dL (8.5-10.1); Chloride 106 mmol/L (98-107); Creatinine, Serum 1.33 mg/dL (0.55-1.02); EST Glomerular Filtration Rate 42 mL/min (>60); Est Glom Filt Rate - Afr Amer 51 mL/min (>60); Glucose 159 mg/dL (74-106); Potassium 3.6 mmol/L (3.5-5.1); Sodium Level 138 mmol/L (136-145)
[2023-03-07 12:53] LABS: Hemoglobin A1c 5.9 % (3.8-5.6)
== END | disposition home or self-care (01) ==
LOC: BIMLAB 10:15
PROVIDERS: PCP Family Medicine; Visit Provider Family Medicine
DX: R73.01 Impaired fasting glucose (principal)
CPT/HCPCS: 36415; 80048; 83036

== ENCOUNTER 2023-08-26 21:27 | Emergency (ER) | payer MEDICARE, SELFPAY ==
[2023-08-26 21:27] VITALS: BP 153/57; PULSE 74; RESP 16; TEMP 36.2; O2SAT 98; BMI 27.6
--- NOTE | 2023-08-26 21:37 | EDS_ITS ---
HPI History of Present Illness Chief Complaint: Fall Informant: patient Narrative Narrative: Patient presents with continued right leg pain after a fall. She states a week ago she caught her toe on some steps and fell. She has appears to be a 3 cm superficial laceration over the hunter that is in the process of healing. She has surrounding ecchymosis and erythema. She has noted some increased swelling of her leg and states it is still significantly painful so she came in to have it checked. [facility] Medical History Arthritis Back problem Carpal tunnel syndrome Cataracts, bilateral GERD (gastroesophageal reflux disease) Heart valve disorder Hyperlipidemia Hypertension Vascular disease Venous insufficiency Venous ulcer of right leg Home Medications acetaminophen 325 mg capsule (Tylenol) 650 mg PO BID PRN Pain 11/20/18 [History Last Taken Unknown] multivitamin 1 tab PO DAILY 11/20/18 [History Last Taken Unknown] aspirin 81 mg capsule 81 mg PO DAILY 08/21/22 [History Last Taken Unknown] rosuvastatin 40 mg tablet 40 mg PO QHS #90 tabs 11/01/22 [Rx Last Taken Unknown] halobetasol propionate 0.05 % topical cream 1 applic topical BID #50 grams 01/16/23 [Rx Last Taken Unknown] metoprolol tartrate 50 mg tablet (Lopressor) 50 mg PO TID 90 days #270 tabs 04/26/23 [Rx Last Taken Unknown] pantoprazole 40 mg tablet,delayed release (Protonix) 40 mg PO DAILY #90 tabs 04/26/23 [Rx Last Taken Unknown] duloxetine 60 mg capsule,delayed release (Cymbalta) 60 mg PO DAILY #90 caps 05/31/23 [Rx Last Taken Unknown] valsartan 320 mg tablet 160 mg (1/2 x 320 mg) PO DAILY #90 tabs 05/31/23 [Rx Last Taken Unknown] hydrochlorothiazide 25 mg tablet 25 mg PO QAM #90 tabs 07/31/23 [Rx Last Taken Unknown] cephalexin 500 mg capsule 500 mg PO Q12 #14 CAPSULES 08/26/23 [Rx Last Taken Unknown] Allergy/AdvReac Type Severity Reaction Status Date / Time No Known Allergies Allergy Verified 03/27/23 15:41 Family History Mother Arthritis CVA (cerebral vascular accident) Father Arthritis Myocardial infarction Heart disease Social History household members: spouse Smoking Status: Current every day smoker tobacco type: cigarettes alcohol intake: former details: Several years substance use type: does not use what type of physical activity do you participate in: none ROS ROS ED Constitutional Constitutional ED: Denies chills or fever(s) Eyes Eyes: Denies discharge from eye(s) ENT ENT ED: Denies discharge from eye(s), rhinorrhea or sore throat Cardiovascular Cardiovascular: Denies chest pain or palpitations Respiratory/Chest Respiratory/Chest: Denies cough or dyspnea Gastrointestinal Gastrointestinal: Denies abdominal pain, nausea or vomiting Musculoskeletal Musculoskeletal: Reports extremity pain; Denies back pain Integumentary Reports Abrasions; Denies rash Neurologic Neurologic: Denies headache(s) or weakness Psychiatric Psychiatric: Denies anxiety or depression Allergic/Immunologic Allergic/Immunologic ED: Denies lip swelling or urticaria EXAM Physical Exam Const Vital Signs: 08/26/23 21:27 08/26/23 21:34 Temperature 97.2 F L Temperature Source Temporal Pulse Rate 74 Respiratory Rate 16 Respiratory Effort Normal Respiratory Depth Normal Respiratory Pattern Normal Blood Pressure 153/57 H Blood Pressure Mean 89 Pulse Ox 98 Oxygen Delivery Method Room Air Room Air Positive well nourished and well developed General Appearance ED: well developed HEENT Reports moist mucous membranes Eyes EOMs intact bilaterally Chest Wall inspection of chest normal and palpation of chest normal Resp normal respiratory effort and clear to auscultation bilaterally Cardio regular rate and regular rhythm GI non-tender Palpation: soft Extremity Extremity Narrative: 3 cm scabbed laceration to the right hunter. Surrounding erythema measuring approximately 10 x 6 cm. The skin is not excessively warm when compared to the remainder of the leg. No drainage. No fluctuance. Neuro oriented x3 MDM MDM MDM Narrative Medical decision making narrative: Venous ultrasound will be obtained to ensure no evidence of DVT. Treatment and Re-Evaluation :: Venous ultrasound of the right lower extremity reveals no evidence of DVT. Patient reassured with these findings. Wound to be cleansed and dressed. I will treat her with a course of Keflex, first dose given here. Discharge Plan Triage Chief Complaint: Fall ED Provider: Katy Tam Dx/Rx/DC Orders Clinical Impression: Cellulitis, Abrasion of leg, right Instructions: ED Abrasion, ED Cellulitis Prescriptions: New cephalexin 500 mg capsule 500 mg PO Q12 Qty: 14 0RF No Action multivitamin tablet 1 tab PO DAILY acetaminophen [Tylenol] 325 mg capsule 650 mg PO BID PRN (Reason: Pain) aspirin 81 mg Capsule 81 mg PO DAILY rosuvastatin 40 mg tablet 40 mg PO QHS Qty: 90 3RF halobetasol propionate 0.05 % cream 1 applic topical BID Qty: 50 0RF metoprolol tartrate [Lopressor] 50 mg tablet 50 mg PO TID 90 Days Qty: 270 1RF pantoprazole [Protonix] 40 mg tablet,delayed release (DR/EC) 40 mg PO DAILY Qty: 90 2RF duloxetine [Cymbalta] 60 mg capsule,delayed release(DR/EC) 60 mg PO DAILY Qty: 90 1RF valsartan 320 mg tablet 160 mg PO DAILY Qty: 90 3RF hydrochlorothiazide 25 mg tablet 25 mg PO QAM Qty: 90 0RF Primary Care Provider: Lenny Hansen Referrals: Lenny Hansen DO [Primary Care Provider] - 1-2 Weeks Disposition Disposition: Home, Self Care
--- NOTE | 2023-08-26 21:41 | US_ITS ---
INDICATION: RT LEG PAIN EXAMINATION: US Venous Duplex LE Unilat / Limited RIGHT TECHNIQUE: Mejía scale, pulse wave, and color flow Doppler imaging was performed of the lower extremity venous system. The right greater saphenous, common femoral, femoral, popliteal, posterior tibial and peroneal veins were interrogated. COMPARISON: None. FINDINGS: There is normal compression, augmentation, and signal throughout the visualized deep lower extremity veins. No mass or fluid collection demonstrated. Varicosities demonstrated within medial right calf. US/Venous Duplex Imag/Limited/Uni IMPRESSION: No sonographic evidence of right lower extremity deep venous thrombosis. Electronically Signed: Refugio Lynne MD at 22:38 EST ,
[2023-08-26] MEDS: Cephalexin 250 MG Capsule 500 MG PO (22:31)
[2023-08-26 22:37] VITALS: BP 153/57; PULSE 74; RESP 16; TEMP 36.2; O2SAT 98
== END 2023-08-26 22:40 | disposition home or self-care (01) ==
PROVIDERS: Emergency Provider Emergency Medicine; PCP Family Medicine; Visit Provider Emergency Medicine
DX: L03.115 Cellulitis of right lower limb (principal); S81.811A Laceration without foreign body, right lower leg, initial encounter; W10.9XXA Fall (on) (from) unspecified stairs and steps, initial encounter; M79.89 Other specified soft tissue disorders; I10 Essential (primary) hypertension; F17.210 Nicotine dependence, cigarettes, uncomplicated; Z79.82 Long term (current) use of aspirin; Z79.899 Other long term (current) drug therapy
CPT/HCPCS: 93971; 99282

== ENCOUNTER → 2023-08-28 | Outpatient (CLI) | payer MEDICARE, SELFPAY ==
--- NOTE | 2023-08-28 08:56 | AAVD_ITS ---
Reason For Study: S/P bilateral iliac vein/IVC stents Inferior Vena Cava Proximal inferior vena cava measures 1.39 x 2.61 cm. in the cross-sectional axis. Proximal inferior vena cava measures 1.50 cm. in the longitudinal axis. Mid inferior vena cava measures 0.83 x 1.68 cm. in the cross-sectional axis. Mid inferior vena cava measures 0.86 cm. in the longitudinal axis. The inferior vena cava has spontaneous, phasic flow throughout. . Distal IVC, Right limb stent, 1.34 x 1.18 x 1.37 cm. Distal IVC, Left limb stent, 1.17 x 1.20 x 1.34 cm. Left Common Iliac Vein Left common iliac vein measures 1.40 x 1.49 cm. in the cross-sectional axis. Left common iliac vein measures 1.36 cm. in the longitudinal axis. The left common iliac vein has spontaneous, phasic flow throughout. Stent identified in the left CIV. Right Common Iliac Vein Right common iliac vein measures 1.52 x 1.59 cm. in the cross-sectional axis. Right common iliac vein measures 1.46 cm. in the longitudinal axis. The right common iliac vein has spontaneous, phasic flow throughout. Stent identified in the right CIV. Procedure Aorta IVC Iliac vasculature or bypass grafts [id number]. Exam performed in department. VL/Abd Aortic/IVC Duplex scan Interpretation Summary Patent inferior vena cava and bilateral iliac vein stents with normal flow maria teresa jeferson demonstrated. Ordering Physician: Mo Coronado MD Referring Physician: Nicolás Hansen M.D. Performed By: Mouna Rivero T
== END | disposition home or self-care (01) ==
LOC: CVS 08:53
PROVIDERS: PCP Family Medicine; Referring Provider Surgery Trauma Surgery; Visit Provider Surgery Trauma Surgery
DX: I87.1 Compression of vein (principal)
CPT/HCPCS: 93978

== ENCOUNTER 2023-11-21 13:00 | Outpatient (RCR) | payer MEDICARE, SELFPAY ==
[2023-11-07 12:43] VITALS: BP 141/58; PULSE 74; RESP 18; TEMP 35.6; BMI 25.8
[2023-11-21 13:13] VITALS: BP 155/57; PULSE 73; RESP 18; TEMP 36.3; BMI 25.8
== END 2023-11-29 23:59 | disposition home or self-care (01) ==
LOC: WC 13:00
PROVIDERS: PCP Family Medicine; Referring Provider Physician Assistant; Visit Provider Physician Assistant
DX: I83.018 Varicose veins of right lower extremity with ulcer other part of lower leg (principal); L97.812 Non-pressure chronic ulcer of other part of right lower leg with fat layer exposed; E78.5 Hyperlipidemia, unspecified; L30.9 Dermatitis, unspecified; I10 Essential (primary) hypertension; F17.210 Nicotine dependence, cigarettes, uncomplicated; Z79.82 Long term (current) use of aspirin; Z79.899 Other long term (current) drug therapy; Z95.820 Peripheral vascular angioplasty status with implants and grafts
CPT/HCPCS: 11042; 99213; G0463

== ENCOUNTER → 2023-12-12 | Outpatient (CLI) | payer MEDICARE, SELFPAY ==
[2023-12-12 15:10] LABS: Absolute Lymphocyte Count 2.05 X10^3/uL (0.83-4.51); Basophil# 0.06 X10^3/uL; Basophil% 0.5 % (0-1); Eosinophil# 0.29 X10^3/uL; Eosinophils% 2.6 % (0-5); Hematocrit 37.9 % (37-47); Hemoglobin 12.3 g/dL (12.0-15.0); Lymphocyte # 2.05 X10^3/ul (0.83-4.51); Lymphocyte % 18.3 % (19-41); Mean Corp Hgb Conc 32.5 g/dL (32-36); Mean Corpuscular Hgb 30.6 pg (27.0-32.0); Mean Corpuscular Volume 94.3 fL (81-99); Mean Platelet Vol. 10.2 fl (6.2-12.0); Monocyte# 0.76 X10^3/uL; Monocyte% 6.8 % (0-10); NRBC Flagged by Analyzer 0 % (0-5); Neutrophil # 8.02 X10^3/uL (2.7-7.7); Neutrophil % 71.4 % (47-70); Platelet Count 270 K/mm3 (150-450); RBC Distribution Width CV 12.6 % (11.6-14.6); RBC Distribution Width SD 43.7 fl (35.1-43.9); Red Blood Count 4.02 M/mm3 (4.2-5.4); White Blood Count 11.2 K/mm3 (4.4-11.0)
[2023-12-12 15:30] LABS: Anion Gap 5 (5-15); BUN 27 mg/dL (7-18); BUN/Creat Ratio 27.6 RATIO (10-20); Calcium,Total 9.6 mg/dL (8.5-10.1); Chloride 104 mmol/L (98-107); Creatinine, Serum 0.98 mg/dL (0.55-1.02); EST Glomerular Filtration Rate 60 mL/min (>60); Est Glom Filt Rate - Afr Amer 73 mL/min (>60); Glucose 119 mg/dL (74-106); Potassium 4.3 mmol/L (3.5-5.1); Sodium Level 138 mmol/L (136-145); Thyroid Stim Hormone (TSH) 1.14 uIU/mL (0.358-3.74)
[2023-12-12 15:41] LABS: Hemoglobin A1c 5.9 % (3.8-5.6)
== END | disposition home or self-care (01) ==
LOC: BIMLAB 13:49
PROVIDERS: PCP Family Medicine; Visit Provider Family Medicine
DX: I10 Essential (primary) hypertension (principal); R73.03 Prediabetes; R53.83 Other fatigue
CPT/HCPCS: 36415; 80048; 83036; 84443; 85025

== ENCOUNTER 2023-12-19 13:00 | Outpatient (RCR) | payer MEDICARE, SELFPAY ==
[2023-11-30 02:35] VITALS: BP 155/57; PULSE 73; RESP 18; TEMP 36.3; BMI 25.8
[2023-12-05 13:08] VITALS: BP 130/70; PULSE 71; RESP 18; TEMP 36; BMI 25.8
--- NOTE | 2023-12-05 13:50 | PCM.WC.PN ---
History of Present Illness Date of Service: 12/05/23 Chief Complaint: Venous leg ulcer right lower extremity History of Wound: Geneva Cerrato is a 68 y/o female who is well-known to me from the vascular surgery office. She presents today with a venous ulceration of her R hunter which was provoked by a fall at the end of August. I saw her in the vascular office on 09/17 at which time the wound appeared infected. I treated empirically with a course of doxycycline and the infection did resolve. She had been performing local care at home with bacitracin ointment and dry dressing initially, later with Aquacel. Unfortunately, the wound continued to remain persistent with little improvement in size. There has not been any recurrence of infection to this point. She does have a history of multiple prior RLE venous ulcerations, a few of which have required care a the wound center. She also is s/p bilateral iliac vein stents to address central venous compression. This has overall improved her lower extremity edema and lower leg aching/pain. However, she does still have venous insufficiency/varicose veins. It was discussed at her prior vascular OVs that she would benefit from venous ablation to help support healing of her current wound and also reduce the risk of future venous ulcerations. At this time, she is not interested in pursuing ablation. She is very consistent in wearing her thigh-high measured compression stockings daily. 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 When she is able, she does try to elevate her legs. She is very active within and outside of her job. She is not diabetic. Subjective Subjective She has been overall doing well. She has a lot of itching around the wound but no new redness/drainage/pain/warmth/swelling. She has been managing dressing changes well. She wears her compression stockings consistently except for Sundays because she is outside in her garden. She rosales not thought much more about ablation. Objective Data Objective Data Vital Signs: Vital Signs Temp Pulse Resp BP O2 Del Method 96.8 F L 71 18 130/70 H Room Air 12/05/23 13:08 12/05/23 13:08 12/05/23 13:08 12/05/23 13:08 12/05/23 13:08 Oxygen Delivery Method Room Air Weight: 165 lb Body Mass Index (BMI) 25.8 Charges/Coding Procedures Integumentary 111xxx-113xx: [id number] Yolie subq tissue 20 sq cm/< Physical Exam Const alert, oriented x3, no apparent distress and healthy appearing General Appearance: cooperative and comfortable HEENT normocephalic, head/scalp atraumatic, hearing grossly normal bilaterally and external nose normal Eyes EOMs intact bilaterally General Eye: normal appearance of both eyes Neck General: normal visual inspection and trachea midline Resp normal respiratory effort and normal air movement Effort and Inspection: able to speak in complete sentences Cardio regular rate and regular rhythm Extremity no clubbing, cyanosis or edema Extremity Narrative: Palpable pedal pulses Skin Wounds: wounds noted Wound Narrative: R hunter venous ulceration with significant slough in the base, surrounding hemosiderin staining but no significant erythema. No associated swelling, warmth, or drainage appreciated. Measurements as noted below. Neuro oriented x3, CN's II-XII intact bilaterally, moves all extremities, no focal motor deficits and no sensory deficits noted Speech: speech normal Psych mental status grossly normal Appearance: grossly normal Attitude: calm and engaged Activity / Motor Behavior: appropriate eye contact Speech: normal speech Judgement: judgement good Debridement Note Debridement Note Wound debrided: R hunter ulcer Laterality: Right Type of Debridement: Excisional debridement Anesthesia Used: 5% Lidocaine Gel Depth: Down to and including healthy tissue and in the subcutaneous layer Percentage of wound debrided: 100 Instrument Used: 3mm curette Tissue Removed: slough, devitalized tissue Amount of bleeding with debridement: Mild Bleeding Controlled with: Pressure Patient tolerated procedure: Patient tolerated procedure well Post-Debridement Measurements and Additional Note: Post-Debridement Measurements/Treatment - Nurse 1 - General Ulcer Assessment Start: 12/05/23 13:08 Freq: Status: Active Protocol: KALYAN Activity Type Activity Date Activity User E-sign Co-sign Detail Recorded Client Recorded Date Recorded By Document 12/05/23 13:08 [facility] 12/05/23 13:10 12/05/23 13:08 - Today's Visit Information Type of service 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 ) Arrival Mode Ambulatory Patient Identification Verified (Name & Yes ) Height and Weight Body Mass Index (BMI) 25.8 BMI Classification Overweight Vital Signs Temperature (97.8 F-99.1 F) 96.8 F L Temperature Source Temporal Pulse Rate (60-100) 71 Pulse Location Monitor Respiratory Rate (12-18) 18 Respiratory rate source Observation Oxygen Delivery Method Room Air Blood Pressure (90/60-120/80) 130/70 H Blood Pressure Mean (mm Hg) 90 Source Monitor Position Sitting Blood Pressure Location Left Arm History Since Last Visit- (Skip if this is Patient's initial visit) Have you changed medications since your No last visit? Any new allergies or adverse reactions No Had a fall/change in ADL's that may No increase risk of falls Signs or symptoms of abuse and/or No neglect since last visit Have you been in the hospital since your No last visit? Has dressing in place as prescribed Yes Has compression in place as prescribed N/A Has offloadiing in place as prescribed N/A Experienced any changes in pain level or No management Pain Scale: 0-10 Numeric Is Patient Pain Free? Yes LYLA - Nurse 1 - General Ulcer Measurement Start: 12/05/23 13:08 Freq: Status: Active Protocol: Activity Type Activity Date Activity User E-sign Co-sign Detail Recorded Client Recorded Date Recorded By Document 12/05/23 13:08 wc 12/05/23 13:10 12/05/23 13:08 Wound Center Nurse 1 #2 RT HUNTER -Current Size (cm) - Length 0.5 -Current Size (cm) - Width 0.3 -Current Size (cm) - Depth 0.3 -Total Square Cm 0.15 -Photo Taken No -Epithelialization Medium 34-66% -Tunneling No -Undermining/Tunneling No -Circular Undermining No -Exudate Amt Small -Wound Margin Distinct, Outline Attached -Granulation Amt Small (1-33%) -Granulation Quality Dimock -Slough/Fibrin Yes -Necrosis Amt Medium (34-66%) -Texture (Nicolasa-wound Skin Appearance) Assessed -Moisture (Nicolasa-wound Skin Appearance) Assessed -Color (Nicolasa-wound Skin Appearance) Assessed -Temperature (Nicolasa-wound Skin No Abnormality Appearance) (Pt Warm) -Ulcer Cleansing Rinsed/ Irrigated with Saline -Foul Odor after Cleansing No -Anesthetic Used 5% Lidocaine Gel LYLA - Nurse 2 - General Ulcer CM Notes Start: 12/05/23 13:08 Freq: Status: Active Protocol: Activity Type Activity Date Activity User E-sign Co-sign Detail Recorded Client Recorded Date Recorded By Document 12/05/23 13:29 GM wc 12/05/23 13:31 GM Edit Result 12/05/23 13:29 GM (1) 12/05/23 13:32 GM (1) #2 RT HUNTER - Post Debridement (cm) - Length => 0.7 - Post Debridement (cm) - Width => 0.4 - Post Debridement (cm) - Depth => 0.3 - Total Square (Post) (cm) => 0.28 - Area of Debridement (cm) - Length => 0.7 - Area of Debridement (cm) - Width => 0.4 - Total Square (Area) (cm) => 0.28 12/05/23 13:29 Wound Center Nurse 2 -Time 13:29 -Correct Patient Yes -Correct Side, Site, Position Yes -Correct Procedure Yes -Procedure Performed Yes -Type of Procedure Debridement -Clinical Debridement Subcutaneous -Tissue Removed Subcutaneous -Post Debridement (cm) - Length 0.7 -Post Debridement (cm) - Width 0.4 -Post Debridement (cm) - Depth 0.3 -Total Square (Post) (cm) 0.28 -Area of Debridement (cm) - Length 0.7 -Area of Debridement (cm) - Width 0.4 -Total Square (Area) (cm) 0.28 -Tunneling No -Undermining/Tunneling No -Circular Undermining No -Wound/Ulcer Outcome Not Healed -Ulcer Cleansing Rinsed/ Irrigated with Saline -Foul Odor after Cleansing No -Bioengineered Tissue No -Bleeding Controlled with Pressure -Treatment Response Procedure Tolerated Well -Debridement - Subq, 1st 20sq cm Yes Pain Scale: 0-10 Numeric Is Patient Pain Free? Yes - Nurse 3 - General Ulcer D/C NN Start: 12/05/23 13:08 Freq: Status: Active Protocol: Activity Type Activity Date Activity User E-sign Co-sign Detail Recorded Client Recorded Date Recorded By Document 12/05/23 13:43 KW wound center 12/05/23 13:44 KW 12/05/23 13:43 Wound Care Center Nurse 3 #2 RT HUNTER -Other Covering PT OWN DRSG- PROMOGRAN WITH FOAM Pain Scale: 0-10 Numeric Is Patient Pain Free? Yes - Visit Discharge Discharge Condition Stable Ambulatory Status Ambulatory Transportation Private Auto Medication Reconcilliation completed & No provided to patient/care provider Clinical Summary of Care Provided Yes Assessment/Plan Assessment/Plan (1) Venous ulcer of right leg: CODE(S): I83.019 - Varicose veins of right lower extremity with ulcer of unspecified site; L97.919 - Non-pressure chronic ulcer of unspecified part of right lower leg with unspecified severity (2) Venous insufficiency: CODE(S): I87.2 - Venous insufficiency (chronic) (peripheral) PLAN: Plan Debridement was performed today and she tolerated this well. Will continue to apply lightly-moistened Pomogran to the wound bed and cover with foam border dressing. She is instructed to change this daily or more often as needed to keep clean and dry. With dressing changes, she should cleanse the area with soap and water and pat to dry well. I do advise continuing to apply a Zinc-based barrier cream such as Triple Paste, Desitin, etc to her lower legs (excluding directly over the wound) nightly for continued management of any potential eczema/stasis dermatitis. As she is still having itching, I will prescribe triamcinolone ointment. She will continue to wear her 20-30mmHg measured thigh-high compression stockings. She will focus efforts to elevate her legs whenever possible. There were no signs of infection on exam today and she did not have any constitutional symptoms. She will return to the wound healing center in 2 weeks or sooner as needed.
[2023-12-19 13:21] VITALS: BP 135/67; PULSE 72; RESP 18; TEMP 35.8; BMI 25.8
--- NOTE | 2023-12-19 14:38 | PCM.WC.PN ---
History of Present Illness Date of Service: 12/19/23 Chief Complaint: Venous leg ulcer right lower extremity History of Wound: Geneva Cerrato is a 68 y/o female who is well-known to me from the vascular surgery office. She presents today with a venous ulceration of her R hunter which was provoked by a fall at the end of August. I saw her in the vascular office on 09/17 at which time the wound appeared infected. I treated empirically with a course of doxycycline and the infection did resolve. She had been performing local care at home with bacitracin ointment and dry dressing initially, later with Aquacel. Unfortunately, the wound continued to remain persistent with little improvement in size. There has not been any recurrence of infection to this point. She does have a history of multiple prior RLE venous ulcerations, a few of which have required care a the wound center. She also is s/p bilateral iliac vein stents to address central venous compression. This has overall improved her lower extremity edema and lower leg aching/pain. However, she does still have venous insufficiency/varicose veins. It was discussed at her prior vascular OVs that she would benefit from venous ablation to help support healing of her current wound and also reduce the risk of future venous ulcerations. At this time, she is not interested in pursuing ablation. She is very consistent in wearing her thigh-high measured compression stockings daily. 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 When she is able, she does try to elevate her legs. She is very active within and outside of her job. She is not diabetic. Subjective Subjective She has been overall doing well. Still with some itching but not as bad as before. She is keeping up with dressing changes and continuing to wear compression stockings. Objective Data Objective Data Vital Signs: Vital Signs Temp Pulse Resp BP O2 Del Method 96.4 F L 72 18 135/67 H Room Air 12/19/23 13:21 12/19/23 13:21 12/19/23 13:21 12/19/23 13:21 12/19/23 13:21 Oxygen Delivery Method Room Air Weight: 165 lb Body Mass Index (BMI) 25.8 Charges/Coding Procedures Integumentary 111xxx-113xx: 03285 Yolie subq tissue 20 sq cm/< Physical Exam Const alert, oriented x3, no apparent distress and healthy appearing General Appearance: cooperative and comfortable HEENT normocephalic, head/scalp atraumatic, hearing grossly normal bilaterally and external nose normal Eyes EOMs intact bilaterally General Eye: normal appearance of both eyes Neck General: normal visual inspection and trachea midline Resp normal respiratory effort and normal air movement Effort and Inspection: able to speak in complete sentences Cardio regular rate and regular rhythm Extremity no clubbing, cyanosis or edema Extremity Narrative: Palpable pedal pulses Skin Wounds: wounds noted Wound Narrative: R hunter venous ulceration with significant slough in the base, surrounding hemosiderin staining but no significant erythema. No associated swelling, warmth, or drainage appreciated.Depth is improved this week, stable length/width. Neuro oriented x3, CN's II-XII intact bilaterally, moves all extremities, no focal motor deficits and no sensory deficits noted Speech: speech normal Psych mental status grossly normal Appearance: grossly normal Attitude: calm and engaged Activity / Motor Behavior: appropriate eye contact Speech: normal speech Judgement: judgement good Debridement Note Debridement Note Wound debrided: R hunter ulcer Laterality: Right Type of Debridement: Excisional debridement Anesthesia Used: 5% Lidocaine Gel Depth: Down to and including healthy tissue and in the subcutaneous layer Percentage of wound debrided: 100 Instrument Used: 3mm curette Tissue Removed: slough, devitalized tissue Amount of bleeding with debridement: Mild Bleeding Controlled with: Pressure Patient tolerated procedure: Patient tolerated procedure well Post-Debridement Measurements and Additional Note: Post-Debridement Measurements/Treatment - Nurse 1 - General Ulcer Assessment Start: 12/05/23 13:08 Freq: Status: Active Protocol: .SALVATORE Activity Type Activity Date Activity User E-sign Co-sign Detail Recorded Client Recorded Date Recorded By Document 12/05/23 13:08 [facility] 12/05/23 13:10 Document 12/19/23 13:21 KW ; 12/19/23 13:22 KW 12/05/23 12/19/23 13:08 13:21 - Today's Visit Information Type of service Follow-up Visit Follow-up Visit (Physician/[employer]NT (Physician/[employer] ) ) Arrival Mode Ambulatory Ambulatory Patient Identification Verified (Name & Yes Yes ) Height and Weight Body Mass Index (BMI) 25.8 25.8 BMI Classification Overweight Overweight Vital Signs Temperature (97.8 F-99.1 F) 96.8 F L 96.4 F L Temperature Source Temporal Temporal Pulse Rate (60-100) 71 72 Pulse Location Monitor Monitor Respiratory Rate (12-18) 18 18 Respiratory rate source Observation Observation Oxygen Delivery Method Room Air Room Air Blood Pressure (90/60-120/80) 130/70 H 135/67 H Blood Pressure Mean (mm Hg) 90 89 Source Monitor Monitor Position Sitting Semi-Fowlers Blood Pressure Location Left Arm Left Arm History Since Last Visit- (Skip if this is Patient's initial visit) Have you changed medications since your No No last visit? Any new allergies or adverse reactions No No Had a fall/change in ADL's that may No No increase risk of falls Signs or symptoms of abuse and/or No No neglect since last visit Have you been in the hospital since your No No last visit? Has dressing in place as prescribed Yes Yes Has compression in place as prescribed N/A N/A Has offloadiing in place as prescribed N/A N/A Experienced any changes in pain level or No No management Left Footwear Regular Shoe Right Footwear Regular Shoe Pain Scale: 0-10 Numeric Is Patient Pain Free? Yes Yes - Nurse 1 - General Ulcer Measurement Start: 12/05/23 13:08 Freq: Status: Active Protocol: Activity Type Activity Date Activity User E-sign Co-sign Detail Recorded Client Recorded Date Recorded By Document 12/05/23 13:08 [facility] 12/05/23 13:10 Document 12/19/23 13:21 KW ; 12/19/23 13:22 KW 12/05/23 12/19/23 13:08 13:21 Wound Center Nurse 1 #2 RT HUNTER -Current Size (cm) - Length 0.5 0.7 -Current Size (cm) - Width 0.3 0.4 -Current Size (cm) - Depth 0.3 0.1 -Total Square Cm 0.15 0.28 -Photo Taken No -Epithelialization Medium 34-66% -Tunneling No -Undermining/Tunneling No -Circular Undermining No -Exudate Amt Small Small -Exudate Type Serosanguineous -Wound Margin Distinct, Distinct, Outline Outline Attached Attached -Granulation Amt Small (1-33%) Large (67-100%) -Granulation Quality Dwale Dwale,Red -Slough/Fibrin Yes -Necrosis Amt Medium (34-66%) Small (1-33%) -Necrotic Tissue Type Adherent Slough -Texture (Nicolasa-wound Skin Appearance) Assessed Assessed -Moisture (Nicolasa-wound Skin Appearance) Assessed Assessed -Color (Nicolasa-wound Skin Appearance) Assessed Assessed -Temperature (Nicolasa-wound Skin No Abnormality Appearance) (Pt Warm) -Ulcer Cleansing Rinsed/ Rinsed/ Irrigated with Irrigated with Saline Saline -Foul Odor after Cleansing No No -Anesthetic Used 5% Lidocaine 5% Lidocaine Gel Gel WC - Nurse 2 - General Ulcer CM Notes Start: 12/05/23 13:08 Freq: Status: Active Protocol: Activity Type Activity Date Activity User E-sign Co-sign Detail Recorded Client Recorded Date Recorded By Document 12/05/23 13:29 GM 12/05/23 13:31 GM Edit Result 12/05/23 13:29 GM (1) 12/05/23 13:32 GM Document 12/19/23 13:28 GM 12/19/23 13:31 GM (1) #2 RT HUNTER - Post Debridement (cm) - Length => 0.7 - Post Debridement (cm) - Width => 0.4 - Post Debridement (cm) - Depth => 0.3 - Total Square (Post) (cm) => 0.28 - Area of Debridement (cm) - Length => 0.7 - Area of Debridement (cm) - Width => 0.4 - Total Square (Area) (cm) => 0.28 12/05/23 12/19/23 13:29 13:28 Wound Center Nurse 2 #2 RT HUNTER -Time 13:29 13:28 -Correct Patient Yes Yes -Correct Side, Site, Position Yes Yes -Correct Procedure Yes Yes -Procedure Performed Yes Yes -Type of Procedure Debridement Debridement -Clinical Debridement Subcutaneous Subcutaneous -Tissue Removed Subcutaneous Subcutaneous -Post Debridement (cm) - Length 0.7 0.7 -Post Debridement (cm) - Width 0.4 0.4 -Post Debridement (cm) - Depth 0.3 0.2 -Total Square (Post) (cm) 0.28 0.28 -Area of Debridement (cm) - Length 0.7 0.7 -Area of Debridement (cm) - Width 0.4 0.4 -Total Square (Area) (cm) 0.28 0.28 -Tunneling No No -Undermining/Tunneling No No -Circular Undermining No No -Wound/Ulcer Outcome Not Healed Not Healed -Ulcer Cleansing Rinsed/ Rinsed/ Irrigated with Irrigated with Saline Saline -Foul Odor after Cleansing No No -Bioengineered Tissue No No -Bleeding Controlled with Pressure Pressure -Treatment Response Procedure Procedure Tolerated Well Tolerated Well -Debridement - Subq, 1st 20sq cm Yes Yes Pain Scale: 0-10 Numeric Is Patient Pain Free? Yes Yes WC - Nurse 3 - General Ulcer D/C NN Start: 12/05/23 13:08 Freq: Status: Active Protocol: Activity Type Activity Date Activity User E-sign Co-sign Detail Recorded Client Recorded Date Recorded By Document 12/05/23 13:43 KW wound center 12/05/23 13:44 KW Document 12/19/23 14:00 DL [id number] 12/19/23 14:01 DL 12/05/23 12/19/23 13:43 14:00 Wound Care Center Nurse 3 #2 RT HUNTER -Ulcer Cleansing Rinsed/ Irrigated with Saline -Foul Odor after Cleansing No -Primary Dressing Applied Promogran -Other Covering PT OWN DRSG- PROMOGRAN WITH FOAM -Promogran 1 Treatment Response Procedure Tolerated Well Pain Scale: 0-10 Numeric Is Patient Pain Free? Yes Yes WC - Visit Discharge Discharge Condition Stable Stable Ambulatory Status Ambulatory Ambulatory Transportation Private Auto Private Auto Medication Reconcilliation completed & No provided to patient/care provider Clinical Summary of Care Provided Yes Assessment/Plan Assessment/Plan (1) Venous ulcer of right leg: CODE(S): I83.019 - Varicose veins of right lower extremity with ulcer of unspecified site; L97.919 - Non-pressure chronic ulcer of unspecified part of right lower leg with unspecified severity (2) Venous insufficiency: CODE(S): I87.2 - Venous insufficiency (chronic) (peripheral) PLAN: Plan Debridement was performed today and she tolerated this well. Will continue to apply lightly-moistened Pomogran to the wound bed and cover with foam border dressing. She is instructed to change this daily or more often as needed to keep clean and dry. With dressing changes, she should cleanse the area with soap and water and pat to dry well. I do advise continuing to apply a Zinc-based barrier cream such as Triple Paste, Desitin, etc to her lower legs (excluding directly over the wound) nightly for continued management of any potential eczema/stasis dermatitis. Continue steroid cream for 1 more week then discontinue if possible. She will continue to wear her 20-30mmHg measured thigh-high compression stockings. She will focus efforts to elevate her legs whenever possible. There were no signs of infection on exam today and she did not have any constitutional symptoms. She will return to the wound healing center in 2 weeks or sooner as needed.
== END 2023-12-29 23:59 | disposition home or self-care (01) ==
LOC: WC 13:00
PROVIDERS: PCP Family Medicine; Referring Provider Physician Assistant; Visit Provider Physician Assistant
DX: I83.018 Varicose veins of right lower extremity with ulcer other part of lower leg (principal); L97.812 Non-pressure chronic ulcer of other part of right lower leg with fat layer exposed; Z79.82 Long term (current) use of aspirin; Z79.899 Other long term (current) drug therapy; Z95.820 Peripheral vascular angioplasty status with implants and grafts
CPT/HCPCS: 11042

== ENCOUNTER 2024-01-23 13:00 | Outpatient (RCR) | payer MEDICARE, SELFPAY ==
[2023-12-30 00:46] VITALS: BP 155/57; PULSE 73; RESP 18; TEMP 36.3; BMI 25.8
[2024-01-09 13:21] VITALS: BP 137/54; PULSE 67; RESP 18; TEMP 36.6; BMI 25.8
--- NOTE | 2024-01-09 14:00 | PN.PCM_ITS ---
History of Present Illness Date of Service: 01/09/24 Chief Complaint: Venous leg ulcer right lower extremity History of Wound: Geneva Cerrato is a 68 y/o female who is well-known to me from the vascular surgery office. She presents today with a venous ulceration of her R hunter which was provoked by a fall at the end of August. I saw her in the vascular office on 09/17 at which time the wound appeared infected. I treated empirically with a course of doxycycline and the infection did resolve. She had been performing local care at home with bacitracin ointment and dry dressing initially, later with Aquacel. Unfortunately, the wound continued to remain persistent with little improvement in size. There has not been any recurrence of infection to this point. She does have a history of multiple prior RLE venous ulcerations, a few of which have required care a the wound center. She also is s/p bilateral iliac vein stents to address central venous compression. This has overall improved her lower extremity edema and lower leg aching/pain. However, she does still have venous insufficiency/varicose veins. It was discussed at her prior vascular OVs that she would benefit from venous ablation to help support healing of her current wound and also reduce the risk of future venous ulcerations. At this time, she is not interested in pursuing ablation. She is very consistent in wearing her thigh-high measured compression stockings daily. 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 When she is able, she does try to elevate her legs. She is very active within and outside of her job. She is not diabetic. Subjective Subjective She has been overall doing well. She is keeping up with dressing changes and continuing to wear compression stockings. She has noticed improvement in the wound over the last few weeks. Objective Data Objective Data Vital Signs: Vital Signs Temp Pulse Resp BP 98 F 67 18 137/54 H 01/09/24 13:21 01/09/24 13:21 01/09/24 13:21 01/09/24 13:21 Weight: 165 lb Body Mass Index (BMI) 25.8 Charges/Coding Procedures Integumentary 111xxx-113xx: 97516 Yolie subq tissue 20 sq cm/< Physical Exam Const alert, oriented x3, no apparent distress and healthy appearing General Appearance: cooperative and comfortable HEENT normocephalic, head/scalp atraumatic, hearing grossly normal bilaterally and external nose normal Eyes EOMs intact bilaterally General Eye: normal appearance of both eyes Neck General: normal visual inspection and trachea midline Resp normal respiratory effort and normal air movement Effort and Inspection: able to speak in complete sentences Cardio regular rate and regular rhythm Extremity no clubbing, cyanosis or edema Extremity Narrative: Palpable pedal pulses Skin Wounds: wounds noted Wound Narrative: R hunter venous ulceration with mild slough in the base, surrounding hemosiderin staining but no significant erythema. No associated swelling, warmth, or drainage appreciated. Overall size and depth of the wound are improved this week. Neuro oriented x3, CN's II-XII intact bilaterally, moves all extremities, no focal motor deficits and no sensory deficits noted Speech: speech normal Psych mental status grossly normal Appearance: grossly normal Attitude: calm and engaged Activity / Motor Behavior: appropriate eye contact Speech: normal speech Judgement: judgement good Debridement Note Debridement Note Wound debrided: R hunter ulcer Laterality: Right Type of Debridement: Excisional debridement Anesthesia Used: 5% Lidocaine Gel Depth: Down to and including healthy tissue and in the subcutaneous layer Percentage of wound debrided: 100 Instrument Used: 3mm curette Tissue Removed: slough, devitalized tissue Amount of bleeding with debridement: Mild Bleeding Controlled with: Pressure Patient tolerated procedure: Patient tolerated procedure well Post-Debridement Measurements and Additional Note: Post-Debridement Measurements/Treatment - Nurse 1 - General Ulcer Assessment Start: 01/09/24 13:20 Freq: Status: Active Protocol: LYLA.SALVATORE Activity Type Activity Date Activity User E-sign Co-sign Detail Recorded Client Recorded Date Recorded By Document 01/09/24 13:21 OR [id number] 01/09/24 13:24 OR 01/09/24 13:21 - Today's Visit Information Type of service Follow-up Visit (Physician/INSURANCE BILLING SPECIALIST ) Arrival Mode Ambulatory Accompanied by SELF Height and Weight Body Mass Index (BMI) 25.8 BMI Classification Overweight Vital Signs Temperature (97.8 F-99.1 F) 98 F Temperature Source Temporal Pulse Rate (60-100) 67 Pulse Location Monitor Respiratory Rate (12-18) 18 Respiratory rate source Observation Blood Pressure (90/60-120/80) 137/54 H Blood Pressure Mean (mm Hg) 81 Source Monitor Position Sitting Blood Pressure Location Left Arm History Since Last Visit- (Skip if this is Patient's initial visit) Has dressing in place as prescribed Yes Has compression in place as prescribed Yes Has offloadiing in place as prescribed Yes Experienced any changes in pain level or Yes management Left Footwear Regular Shoe Right Footwear Regular Shoe Pain Scale: 0-10 Numeric Is Patient Pain Free? Yes - Nurse 1 - General Ulcer Measurement Start: 01/09/24 13:20 Freq: Status: Active Protocol: Activity Type Activity Date Activity User E-sign Co-sign Detail Recorded Client Recorded Date Recorded By Document 01/09/24 13:21 OR [id number] 01/09/24 13:24 OR 01/09/24 13:21 Wound Center Nurse 1 #2 RT HUNTER -Current Size (cm) - Length 0.5 -Current Size (cm) - Width 0.5 -Current Size (cm) - Depth 0.1 -Total Square Cm 0.25 -Photo Taken No -Undermining/Tunneling No -Circular Undermining No -Exudate Amt Small -Exudate Type Serosanguineous -Wound Margin Flat & Intact -Granulation Amt Large (67-100%) -Granulation Quality Pale,Rosanky -Necrosis Amt None Present (0 %) -Texture (Nicolasa-wound Skin Appearance) Assessed -Moisture (Nicolasa-wound Skin Appearance) Assessed -Color (Nicolasa-wound Skin Appearance) Assessed -Temperature (Nicolasa-wound Skin No Abnormality Appearance) (Pt Warm) -Tenderness on Palpation (Nicolasa-wound No Skin Appearance) -Ulcer Cleansing Rinsed/ Irrigated with Saline -Foul Odor after Cleansing No -Anesthetic Used 5% Lidocaine Gel Right Calf (cm) 38 Right Ankle (cm) 23 - Nurse 2 - General Ulcer CM Notes Start: 01/09/24 13:20 Freq: Status: Active Protocol: Activity Type Activity Date Activity User E-sign Co-sign Detail Recorded Client Recorded Date Recorded By Document 01/09/24 13:39 [facility] 01/09/24 13:42 01/09/24 13:39 Wound Center Nurse 2 #2 RT HUNTER -Time 13:39 -Correct Patient Yes -Correct Side, Site, Position Yes -Correct Procedure Yes -Procedure Performed Yes -Type of Procedure Debridement -Clinical Debridement Subcutaneous -Tissue Removed Subcutaneous -Tunneling No -Undermining/Tunneling No -Circular Undermining No -Wound/Ulcer Outcome Not Healed -Ulcer Cleansing Rinsed/ Irrigated with Saline -Bioengineered Tissue No -Bleeding Controlled with Pressure -Treatment Response Procedure Tolerated Well -Debridement - Subq, 1st 20sq cm Yes Pain Scale: 0-10 Numeric Is Patient Pain Free? Yes - Nurse 3 - General Ulcer D/C NN Start: 01/09/24 13:20 Freq: Status: Active Protocol: Activity Type Activity Date Activity User E-sign Co-sign Detail Recorded Client Recorded Date Recorded By Document 01/09/24 13:47 GM 01/09/24 13:48 GM 01/09/24 13:47 Wound Care Center Nurse 3 #2 RT HUNTER -Ulcer Cleansing Not Cleansed -Foul Odor after Cleansing No -Primary Dressing Applied Mepilex Border, Promogran -Mepilex Border 1 -Promogran 1 Pain Scale: 0-10 Numeric Is Patient Pain Free? Yes - Visit Discharge Discharge Condition Stable Ambulatory Status Ambulatory Transportation Private Auto Clinical Summary of Care Provided Yes Assessment/Plan Assessment/Plan (1) Venous ulcer of right leg: CODE(S): I83.019 - Varicose veins of right lower extremity with ulcer of unspecified site; L97.919 - Non-pressure chronic ulcer of unspecified part of right lower leg with unspecified severity (2) Venous insufficiency: CODE(S): I87.2 - Venous insufficiency (chronic) (peripheral) PLAN: Plan Debridement was performed today and she tolerated this well. Will continue to apply lightly-moistened Pomogran to the wound bed and cover with foam border dressing. She is instructed to change this daily or more often as needed to keep clean and dry. With dressing changes, she should cleanse the area with soap and water and pat to dry well. I do advise continuing to apply a Zinc-based barrier cream such as Triple Paste, Desitin, etc to her lower legs (excluding directly over the wound) nightly for continued management of any potential eczema/stasis dermatitis. She will continue to wear her 20-30mmHg measured thigh-high compression stockings. Continue to elevate her legs whenever possible. There were no signs of infection on exam today and she did not have any constitutional symptoms. She will return to the wound healing center in 2 weeks or sooner as needed.
[2024-01-23 13:20] VITALS: BP 144/44; PULSE 70; RESP 18; TEMP 35.7; BMI 25.8
--- NOTE | 2024-01-23 14:34 | PN.PCM_ITS ---
History of Present Illness Date of Service: 01/23/24 Chief Complaint: Venous leg ulcer right lower extremity History of Wound: Geneva Cerrato is a 68 y/o female who is well-known to me from the vascular surgery office. She presents today with a venous ulceration of her R hunter which was provoked by a fall at the end of August. I saw her in the vascular office on 09/17 at which time the wound appeared infected. I treated empirically with a course of doxycycline and the infection did resolve. She had been performing local care at home with bacitracin ointment and dry dressing initially, later with Aquacel. Unfortunately, the wound continued to remain persistent with little improvement in size. There has not been any recurrence of infection to this point. She does have a history of multiple prior RLE venous ulcerations, a few of which have required care a the wound center. She also is s/p bilateral iliac vein stents to address central venous compression. This has overall improved her lower extremity edema and lower leg aching/pain. However, she does still have venous insufficiency/varicose veins. It was discussed at her prior vascular OVs that she would benefit from venous ablation to help support healing of her current wound and also reduce the risk of future venous ulcerations. At this time, she is not interested in pursuing ablation. She is very consistent in wearing her thigh-high measured compression stockings daily. 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 When she is able, she does try to elevate her legs. She is very active within and outside of her job. She is not diabetic. Subjective Subjective She says that she thinks the wound is healed today. No new wounds. No concerns. She continues to be diligent with her compression. Objective Data Objective Data Vital Signs: Vital Signs Temp Pulse Resp BP O2 Del Method 96.3 F L 70 18 144/44 H Room Air 01/23/24 13:20 01/23/24 13:20 01/23/24 13:20 01/23/24 13:20 01/23/24 13:20 Oxygen Delivery Method Room Air Weight: 165 lb Body Mass Index (BMI) 25.8 Charges/Coding Visit Charges Office Visits / Consults: 91599 OV L3 Est 20min Physical Exam Const alert, oriented x3, no apparent distress and healthy appearing General Appearance: cooperative and comfortable HEENT normocephalic, head/scalp atraumatic, hearing grossly normal bilaterally and external nose normal Eyes EOMs intact bilaterally General Eye: normal appearance of both eyes Neck General: normal visual inspection and trachea midline Resp normal respiratory effort and normal air movement Effort and Inspection: able to speak in complete sentences Cardio regular rate and regular rhythm Extremity no clubbing, cyanosis or edema Extremity Narrative: Palpable pedal pulses Skin Wounds: wounds noted Wound Narrative: R hunter venous ulceration which is now about 0.1x0.2x0.1 cm with no significant slough, erythema, swelling, drainage, foul odor. The rest of the wound has fully epithelialized. Neuro oriented x3, CN's II-XII intact bilaterally, moves all extremities, no focal motor deficits and no sensory deficits noted Speech: speech normal Psych mental status grossly normal Appearance: grossly normal Attitude: calm and engaged Activity / Motor Behavior: appropriate eye contact Speech: normal speech Judgement: judgement good Debridement Note Debridement Note Post-Debridement Measurements and Additional Note: Post-Debridement Measurements/Treatment - Nurse 1 - General Ulcer Assessment Start: 01/09/24 13:20 Freq: Status: Active Protocol: KALYAN Activity Type Activity Date Activity User E-sign Co-sign Detail Recorded Client Recorded Date Recorded By Document 01/09/24 13:21 MT [id number] 01/09/24 13:24 MT Document 01/23/24 13:20 KW l 01/23/24 13:25 KW 01/09/24 01/23/24 13:21 13:20 - Today's Visit Information Type of service Follow-up Visit Follow-up Visit (Physician/SUPERVISOR ORDNANCE TRUCK INSTALLATION (Physician/SUPERVISOR [employer]DNANCE TRUCK INSTALLATION ) ) Arrival Mode Ambulatory Ambulatory Accompanied by SELF Patient Identification Verified (Name & Yes ) Height and Weight Body Mass Index (BMI) 25.8 25.8 BMI Classification Overweight Overweight Vital Signs Temperature (97.8 F-99.1 F) 98 F 96.3 F L Temperature Source Temporal Temporal Pulse Rate (60-100) 67 70 Pulse Location Monitor Monitor Respiratory Rate (12-18) 18 18 Respiratory rate source Observation Observation Oxygen Delivery Method Room Air Blood Pressure (90/60-120/80) 137/54 H 144/44 H Blood Pressure Mean (mm Hg) 81 77 Source Monitor Monitor Position Sitting Semi-Fowlers Blood Pressure Location Left Arm Left Arm History Since Last Visit- (Skip if this is Patient's initial visit) Have you changed medications since your No last visit? Any new allergies or adverse reactions No Had a fall/change in ADL's that may No increase risk of falls Signs or symptoms of abuse and/or No neglect since last visit Have you been in the hospital since your No last visit? Has dressing in place as prescribed Yes Yes Has compression in place as prescribed Yes Yes Has offloadiing in place as prescribed Yes N/A Experienced any changes in pain level or Yes No management Left Footwear Regular Shoe Regular Shoe Right Footwear Regular Shoe Regular Shoe Pain Scale: 0-10 Numeric Is Patient Pain Free? Yes Yes WC - Nurse 1 - General Ulcer Measurement Start: 01/09/24 13:20 Freq: Status: Active Protocol: Activity Type Activity Date Activity User E-sign Co-sign Detail Recorded Client Recorded Date Recorded By Document 01/09/24 13:21 CA [id number] 01/09/24 13:24 MT Document 01/23/24 13:20 KW l 01/23/24 13:25 KW 01/09/24 01/23/24 13:21 13:20 Wound Center Nurse 1 #2 RT HUNTER -Current Size (cm) - Length 0.5 1 -Current Size (cm) - Width 0.5 0.3 -Current Size (cm) - Depth 0.1 0.2 -Total Square Cm 0.25 0.3 -Date of Last Picture (Recall this 01/23/24 field) -Photo Taken No -Epithelialization Large 67-100% -Undermining/Tunneling No -Circular Undermining No -Exudate Amt Small None Present -Exudate Type Serosanguineous -Wound Margin Flat & Intact Distinct, Outline Attached -Granulation Amt Large (67-100%) Large (67-100%) -Granulation Quality Pale,[place] -Necrosis Amt None Present (0 %) -Texture (Nicolasa-wound Skin Appearance) Assessed Assessed -Moisture (Nicolasa-wound Skin Appearance) Assessed Assessed -Color (Nicolasa-wound Skin Appearance) Assessed Assessed -Temperature (Nicolasa-wound Skin No Abnormality No Abnormality Appearance) (Pt Warm) (Pt Warm) -Tenderness on Palpation (Nicolasa-wound No No Skin Appearance) -Ulcer Cleansing Rinsed/ Rinsed/ Irrigated with Irrigated with Saline Saline -Foul Odor after Cleansing No No -Anesthetic Used 5% Lidocaine 5% Lidocaine Gel Gel Right Calf (cm) 38 39 Right Ankle (cm) 23 23.5 - Nurse 2 - General Ulcer CM Notes Start: 01/09/24 13:20 Freq: Status: Active Protocol: Activity Type Activity Date Activity User E-sign Co-sign Detail Recorded Client Recorded Date Recorded By Document 01/09/24 13:39 GM 01/09/24 13:42 GM Document 01/23/24 13:29 BM [id number] 01/23/24 13:31 [facility] 01/09/24 01/23/24 13:39 13:29 Wound Center Nurse 2 #2 RT HUNTER -Time 13:39 -Correct Patient Yes -Correct Side, Site, Position Yes -Correct Procedure Yes -Procedure Performed Yes -Type of Procedure Debridement -Clinical Debridement Subcutaneous -Tissue Removed Subcutaneous -Post Debridement (cm) - Length 0.1 -Post Debridement (cm) - Width 0.2 -Post Debridement (cm) - Depth 0.1 -Total Square (Post) (cm) 0.02 -Area of Debridement (cm) - Length 0.1 -Area of Debridement (cm) - Width 0.2 -Total Square (Area) (cm) 0.02 -Tunneling No -Undermining/Tunneling No -Circular Undermining No -Wound/Ulcer Outcome Not Healed Healed- Epithelialized -Ulcer Cleansing Rinsed/ Irrigated with Saline -Bioengineered Tissue No -Bleeding Controlled with Pressure NA -Treatment Response Procedure Tolerated Well -Debridement - Subq, 1st 20sq cm Yes Pain Scale: 0-10 Numeric Is Patient Pain Free? Yes Yes - Nurse 3 - General Ulcer D/C NN Start: 01/09/24 13:20 Freq: Status: Active Protocol: Activity Type Activity Date Activity User E-sign Co-sign Detail Recorded Client Recorded Date Recorded By Document 01/09/24 13:47 GM 01/09/24 13:48 GM Document 01/23/24 13:32 BMF [email or web address] 01/23/24 13:33 BMF 01/09/24 01/23/24 13:47 13:32 Wound Care Center Nurse 3 #2 RT HUNTER -Ulcer Cleansing Not Cleansed -Foul Odor after Cleansing No -Primary Dressing Applied Mepilex Border, Mepilex Border Promogran -Other Dressing PROMOGRAN -Mepilex Border 1 1 -Promogran 1 Pain Scale: 0-10 Numeric Is Patient Pain Free? Yes Yes WC - Visit Discharge Discharge Condition Stable Stable Ambulatory Status Ambulatory Ambulatory Transportation Private Auto Private Auto Clinical Summary of Care Provided Yes Assessment/Plan Assessment/Plan (1) Venous ulcer of right leg: CODE(S): I83.019 - Varicose veins of right lower extremity with ulcer of unspecified site; L97.919 - Non-pressure chronic ulcer of unspecified part of right lower leg with unspecified severity (2) Venous insufficiency: CODE(S): I87.2 - Venous insufficiency (chronic) (peripheral) PLAN: Plan No debridement was indicated today. The wound is very nearly healed, there is a very small open area remaining which I expect to heal within the next week. I advise continue to cover the area with a foam border dressing for padding and protection for the next 2 weeks. She is advised to continue with consistent use of her measured compression stockings. She is discharged from the wound healing center today. I offered an appointment for a wound check in 3 weeks but she politely declines, she will return as needed.
--- NOTE | 2024-01-30 11:39 | WC ---
PHOTO 01/23/24 RIGHT DAWN
== END 2024-01-24 08:43 | disposition home or self-care (01) ==
LOC: WC 13:00
PROVIDERS: PCP Family Medicine; Referring Provider Physician Assistant; Visit Provider Physician Assistant
DX: I83.018 Varicose veins of right lower extremity with ulcer other part of lower leg (principal); L97.812 Non-pressure chronic ulcer of other part of right lower leg with fat layer exposed; I87.2 Venous insufficiency (chronic) (peripheral); Z79.82 Long term (current) use of aspirin; Z79.899 Other long term (current) drug therapy; Z95.820 Peripheral vascular angioplasty status with implants and grafts
CPT/HCPCS: 11042; 99213; G0463

== ENCOUNTER → 2024-03-31 | Outpatient (CLI) | payer MEDICARE, SELFPAY ==
[2024-03-31 16:24] LABS: Basophil# 0.06 X10^3/uL; Basophil% 0.6 % (0-1); Eosinophil# 0.26 X10^3/uL; Eosinophils% 2.8 % (0-5); Hematocrit 35.6 % (37-47); Hemoglobin 11.9 g/dL (12.0-15.0); Lymphocyte % 23.8 % (19-41); Mean Corp Hgb Conc 33.4 g/dL (32-36); Mean Corpuscular Hgb 31.3 pg (27.0-32.0); Mean Corpuscular Volume 93.7 fL (81-99); Mean Platelet Vol. 10.4 fl (6.2-12.0); Monocyte# 0.68 X10^3/uL; Monocyte% 7.3 % (0-10); NRBC Flagged by Analyzer 0 % (0-5); Neutrophil # 6.03 X10^3/uL (2.7-7.7); Neutrophil % 65.2 % (47-70); Platelet Count 274 K/mm3 (150-450); RBC Distribution Width CV 12.6 % (11.6-14.6); RBC Distribution Width SD 43.7 fl (35.1-43.9); White Blood Count 9.3 K/mm3 (4.4-11.0)
[2024-03-31 16:54] LABS: AST(SGOT) 11 U/L (15-37); Alanine Aminotransfer ALT/SGPT 17 U/L (13-56); Albumin, Serum 3.6 g/dL (3.2-5.0); Alkaline Phosphatase 85 U/L (45-117); Anion Gap 6 (5-15); BUN 26 mg/dL (7-18); BUN/Creat Ratio 25.7 RATIO (10-20); Calcium,Total 9.6 mg/dL (8.5-10.1); Chloride 105 mmol/L (98-107); Creatinine, Serum 1.01 mg/dL (0.55-1.02); EST Glomerular Filtration Rate 58 mL/min (>60); Est Glom Filt Rate - Afr Amer 70 mL/min (>60); Globulin 3.5 g/dL (2.2-4.2); Glucose 110 mg/dL (74-106); Protein, Total 7.1 g/dL (6.4-8.2); Sodium Level 137 mmol/L (136-145)
[2024-04-05 12:07] LABS: ACCA 111 units (0-90); ALCA 25 units (0-60); AMCA 116 units (0-100); Albumin 3.9 g/dL (2.9-4.4); Alpha-1-Globulins 0.2 g/dL (0.0-0.4); Alpha-2-Globulins 0.7 g/dL (0.4-1.0); Cytoplasmic Ab (C-ANCA) <1:20 titer (Neg:<1:20); Endomysial Antibody IgA Negative (Negative); Gamma Globulin 0.8 g/dL (0.4-1.8); Immunoglobulin A 140 mg/dL (87-352); Immunoglobulin E 142 IU/mL (6-495); Immunoglobulin G 850 mg/dL (586-1602); Immunoglobulin M 136 mg/dL (26-217); PROEL- TOTAL PROTEIN 6.5 g/dL (6.0-8.5); Perinuclear Ab (P-ANCA) <1:20 titer (Neg:<1:20); gASCA 89 units (0-50); t-Transglutaminase IgA <2 U/mL (0-3)
[2024-04-06 12:08] LABS: Anti-Centromere B Ab <0.2 AI (0.0-0.9); Anti-Chromatin 0.2 AI (0.0-0.9); Anti-Jo <0.2 AI (0.0-0.9); Anti-Scleroderma-70 AB <0.2 AI (0.0-0.9); Anti-dsDNA Ab 2 IU/mL (0-9); Beef <0.10 kU/L (Class 0); Chocolate <0.10 kU/L (Class 0); Codfish <0.10 kU/L (Class 0); Corn <0.10 kU/L (Class 0); Egg, Whole <0.10 kU/L (Class 0); Milk (Cow) 0.24 kU/L (Class 0/I); Mussels <0.10 kU/L (Class 0); Peanut <0.10 kU/L (Class 0); Pork <0.10 kU/L (Class 0); RNP Ab <0.2 AI (0.0-0.9); SJOGREN'S Anti-SS-A test < 0.2 AI (0.0-0.9); SJOGREN'S Anti-SS-B test < 0.2 AI (0.0-0.9); Salmon <0.10 kU/L (Class 0); Shrimp <0.10 kU/L (Class 0); Smith Ab <0.2 AI (0.0-0.9); Soybean <0.10 kU/L (Class 0); Tuna <0.10 kU/L (Class 0); Wheat <0.10 kU/L (Class 0)
== END | disposition home or self-care (01) ==
LOC: LAB 15:34
PROVIDERS: PCP Family Medicine; Referring Provider Student in an Organized Health Care Education/Training Program; Visit Provider Student in an Organized Health Care Education/Training Program
DX: R19.7 Diarrhea, unspecified (principal)
CPT/HCPCS: 36415; 80053; 82784; 82785; 83516; 84165; 85025; 86003; 86005; 86036; 86037; 86225; 86235; 86255; 86334; 86671

== ENCOUNTER 2024-04-03 16:00 | Outpatient (CLI) | payer MEDICARE, SELFPAY ==
[2024-04-07 19:07] LABS: Calprotectin, Stool 107
[2024-04-15 16:16] LABS: Giardia Lamblia, Stool EIA NEGATIVE
== END 2024-04-03 23:59 | disposition home or self-care (01) ==
LOC: LABSPEC 04-06 11:29
PROVIDERS: Student in an Organized Health Care Education/Training Program; PCP Family Medicine; Visit Provider Internal Medicine Gastroenterology
DX: R19.7 Diarrhea, unspecified (principal); K58.9 Irritable bowel syndrome, unspecified
CPT/HCPCS: 82653; 83630; 83993; 87177; 87209; 87329; 87493

== ENCOUNTER → 2024-05-21 | Outpatient (CLI) | payer MEDICARE, SELFPAY ==
[2024-05-21 13:31] VITALS: BP 162/62; PULSE 61; RESP 16; O2SAT 99; BMI 26.6
[2024-05-21] MEDS: Glucagon 1 MG/ML Syringe IV (14:27)
[2024-05-21] MEDS: 0.9% Saline Lock 10 ML Syringe IV (14:30)
[2024-05-21 14:50] VITALS: BP 184/70; PULSE 74; RESP 16; O2SAT 97
== END | disposition home or self-care (01) ==
LOC: MRI 12:20
PROVIDERS: PCP Family Medicine; Referring Provider Internal Medicine Gastroenterology; Visit Provider Internal Medicine Gastroenterology
DX: K52.9 Noninfective gastroenteritis and colitis, unspecified (principal)
CPT/HCPCS: 74183; 96374; A9575; A4216; J1610

== ENCOUNTER 2024-06-02 11:20 | Outpatient (CLI) | payer MEDICARE, SELFPAY | END 2024-06-02 19:00 | disposition home or self-care (01) | LOC: EN 09-02 11:22 | PROVIDERS: PCP Family Medicine; Referring Provider Family Medicine; Visit Provider Internal Medicine Gastroenterology | DX: K58.9 Irritable bowel syndrome, unspecified (principal); R19.7 Diarrhea, unspecified; Z53.9 Procedure and treatment not carried out, unspecified reason | CPT/HCPCS: 82653; 83630; 83993; 87177; 87209; 87329; 87493; 87506 ==

== ENCOUNTER 2024-09-08 13:33 | Day surgery (SDC) | payer MEDICARE, SELFPAY ==
--- NOTE | 2024-09-04 15:01 | PAT.ANE_ITS ---
Pre-Assessment Diagnosis/Proposed Procedure Planned Operative Procedure(s): COLONOSCOPY Anesthesia History Anesthesia History - balloon sander: Anesthesia History - balloon sander Hx Hospitalization No 09/04/24 14:46 Any Problems With Anesthesia No 09/04/24 14:46 Cholinesterase deficiency No 09/04/24 14:46 You/Your Family Experience No 09/04/24 14:46 fever (hyperthermia) with Relationship Recent Exposure to Contagious Disease Does patient have nerve No 09/04/24 14:46 stimulator Patient instructed to have device shut off --Does patient have Pacemaker or ICD? When Was Last Pacemaker Check QUESTION #4 FULL TEXT: You/Your Family Experience fever (hyperthermia) with Anesthesia Last Oral Intake Last Oral intake: Last Oral Intake NPO since Meds taken in AM with sips of water? Meds patient instructed to take am of surgery PONV PONV - balloon sander: PONV - balloon sander Female Yes 09/04/24 14:46 HX of Motion Sickness No 09/04/24 14:46 HX of N/V After Surgery No 09/04/24 14:46 Non-Smoker Yes 09/04/24 14:46 Duration of Surgery greater No 09/04/24 14:46 than 60 minutes Number of Risk Factors 2 09/04/24 14:46 PONV Score Moderate Risk 09/04/24 14:46 Height & Weight Height & Weight: Anesthesia: Height & Weight Height 5 ft 6 in 05/21/24 13:31 Respiratory Assessment Respiratory Assessment - balloon sander: Respiratory Tract Infection Hx - balloon sander Hx Respiratory Tract Infection No 09/04/24 14:46 STOP Sleep Apnea STOP Sleep Apnea - balloon sander: STOP Sleep Apnea - balloon sander Hx Hypertension Yes: CONTROLLED ON MED 09/04/24 14:46 Hx Sleep Apnea No 09/04/24 14:46 CPAP BIPAP Do you snore loudly (louder No 09/04/24 14:46 than talking or can be heard Do you often feel tired/ No 09/04/24 14:46 fatigued/ sleepy during daytime? Has anyone observed you stop No 09/04/24 14:46 breathing during sleep? STOP Results Negative 09/04/24 14:46 QUESTION #5 FULL TEXT : Do you snore loudly (louder than talking or can be heard through closed doors)? Tobacco Use History Tobacco Use History - balloon sander: Tobacco Use History - balloon sander Tobacco Use Smoking Status Current every day smoker 09/04/24 14:46 Hx Tobacco Use Yes 09/04/24 14:46 Years Smoking Packs Smoked per Day Smoking Cessation Date was within the last 15 years Hx Smoking Cessation Date Hx Smoking Cessation Counseling Hematologic Medial History Hematologic Hx - balloon sander: Hematologic Medical Hx - eligibility specialist Hx of Blood Transfusion No 09/04/24 14:46 Hx of Transfusion in last 3 No 09/04/24 14:46 Months Date of Last Transfusion (if within last 3 months) Ever experience any problems No 09/04/24 14:46 with transfusion(s)? Specify any problems Hx of Preganancy in last 3 No 09/04/24 14:46 Months Nurse Filling Out Transfusion VCHRISTIN 09/04/24 14:46 & Questions: Date: 09/04/24 09/04/24 14:46 Time: 14:47 09/04/24 14:46 Patient unable to answer at this time (ie. confused, unrespo /Reproduction History /Reproductive History - balloon sander: /Reproductive Hx- balloon sander Hx Now Gestational Age (in weeks): EDC: Hx Hx Para Hx Section SAB PFSH Medical History (Updated 09/04/24 @ 14:45 by Mary Jane Alevs) Wears glasses Wears dentures Post-menopausal Depression Anxiety Back pain History of hiatal hernia History of Crohn's disease Gastric reflux Smoker History of echocardiogram Venous insufficiency Venous ulcer of right leg Heart valve disorder Vascular disease GERD (gastroesophageal reflux disease) Hyperlipidemia Hypertension Carpal tunnel syndrome Cataracts, bilateral Back problem Arthritis Home Medications ?Medication ?Instructions ?Recorded ?Last Taken ?Type acetaminophen 325 mg capsule 650 mg PO BID PRN Pain Unknown History (Tylenol) multivitamin 1 tab PO DAILY 11/20/18 Unkn own History aspirin 81 mg capsule 81 mg PO DAILY 08/21/22 Unkn own History hydrocolloid dressing 4 X 4 #5 ea 10/09/23 Unknown R x pantoprazole 40 mg tablet,delayed 40 mg PO DAILY #90 t abs 12/09/23 Unknown Rx release (Protonix) rosuvastatin 40 mg tablet 40 mg PO QHS #90 tabs Unknown Rx hydrochlorothiazide 25 mg tablet 25 mg PO QAM #90 tabs 04/28/24 Unknown Rx metoprolol tartrate 50 mg tablet 50 mg PO TID 90 days #270 tabs 04/28/24 Unknown Rx (Lopressor) duloxetine 60 mg capsule,delayed 60 mg PO DAILY #90 ca ps 06/09/24 Unknown Rx release (Cymbalta) valsartan 320 mg tablet 160 mg (1/2 x 320 mg) PO RAFAL LY #90 08/28/24 Unknown Rx tabs Allergy/AdvReac Type Severity Reaction Status Date / Time No Known Allergies Allergy Verified 09/04/24 14:37 Family History Mother Arthritis CVA (cerebral vascular accident) Father Arthritis Myocardial infarction Heart disease Surgical History (Updated 09/04/24 @ 14:45 by Mary Jane Alves) Hx of surgical procedure Social History household members: spouse Smoking Status: Current every day smoker tobacco type: cigarettes alcohol intake: former details: Several years substance use type: does not use what type of physical activity do you participate in: none Audit: Pertinent Findings Pertinent Findings Echo (EF%) pertinent findings: 03/30/2020 normal size function EF 60% Recommendation Anesthesia Recommendation Anesthesia recommendation: OPTIMIZED for anesthesia
[2024-09-08] VITALS (8 sets, daily range): BP systolic 93–128; BP diastolic 49–64; PULSE 61–75; RESP 16; TEMP 36.1–36.6; O2SAT 95–100; BMI 25.5
--- NOTE | 2024-09-08 14:37 | PCM.HP.STD ---
HPI - General General Date of Admission: 09/08/24 Date of Service: 09/08/24 Chief Complaint: diarrhea HPI Narrative TRISTIAN PATHAK, is a 69 F who presents for evaluation of diarrhea. She presented to the office today for establishment with [facility]. Pt has a PMHx of arthritis, HLD, carpal tunnel, HTN, venous insufficiency, IBS and GERD. She is here today for evaluation of diarrhea. She tells me she was diagnosed with IBS years ago. She has had diarrhea once a day for about 1 month. She will have diarrhea after eating and then have a solid bm later. She has constant abdominal pain and hears here intestine 'gurgling'. She is often nauseas but no vomiting. She also has had relfux for a long time and has been on nexium and other PPIs for years. Her last colonoscopy and EGD was more than 10 years ago. She has a family hx of Crohns disease. [facility], [facility] Medical History Wears glasses Wears dentures Post-menopausal Depression Anxiety Back pain History of hiatal hernia History of Crohn's disease Gastric reflux Smoker History of echocardiogram Venous insufficiency Venous ulcer of right leg Heart valve disorder Vascular disease GERD (gastroesophageal reflux disease) Hyperlipidemia Hypertension Carpal tunnel syndrome Cataracts, bilateral Back problem Arthritis Home Medications ?Medication ?Instructions ?Recorded ?Last Taken ?Type acetaminophen 325 mg capsule 650 mg PO BID PRN Pain 11/20/18 Unknown History (Tylenol) multivitamin 1 tab PO DAILY 11/20/18 Unknown History aspirin 81 mg capsule 81 mg PO DAILY 08/21/22 Unknown History hydrocolloid dressing 4 X 4 #5 ea 10/09/23 Unknown Rx pantoprazole 40 mg tablet,delayed 40 mg PO DAILY #90 tabs 12/09/23 Unknown Rx release (Protonix) rosuvastatin 40 mg tablet 40 mg PO QHS #90 tabs 03/27/24 Unknown Rx hydrochlorothiazide 25 mg tablet 25 mg PO QAM #90 tabs 04/28/24 Unknown Rx metoprolol tartrate 50 mg tablet 50 mg PO TID 90 days #270 tabs 04/28/24 09/08/24 Rx (Lopressor) duloxetine 60 mg capsule,delayed 60 mg PO DAILY #90 caps 06/09/24 Unknown Rx release (Cymbalta) valsartan 320 mg tablet 160 mg (1/2 x 320 mg) PO DAILY #90 08/28/24 09/08/24 Rx tabs Allergy/AdvReac Type Severity Reaction Status Date / Time No Known Allergies Allergy Verified 09/04/24 14:37 Family History Mother Arthritis CVA (cerebral vascular accident) Father Arthritis Myocardial infarction Heart disease Surgical History Hx of surgical procedure Social History household members: spouse Smoking Status: Current every day smoker tobacco type: cigarettes alcohol intake: former details: Several years substance use type: does not use what type of physical activity do you participate in: none ROS Constitutional Constitutional: Denies fatigue, fever(s), poor appetite, weight gain or weight loss Gastrointestinal Gastrointestinal: Denies belching, bloating, change in bowel habits, change in stool character, chewing difficulty, coffee ground emesis, constipation, cramping, diarrhea, dyspepsia, dysphagia, early satiety, excessive flatus, fecal incontinence, heartburn, hematemesis, hematochezia, hemorrhoids, loose stools, melena, nausea, odynophagia, rectal bleeding, tenesmus, vomiting or weight changes Vital Signs Vital Signs Vital Signs: 09/08/24 14:02 09/08/24 14:02 Temperature 97 F L Temperature Source Temporal Pulse Rate 67 Respiratory Rate 16 Respiratory Pattern Normal Blood Pressure 128/64 H Blood Pressure Mean 85 Blood Pressure Source Monitor Blood Pressure Position Sitting Blood Pressure Location Left Arm Pulse Ox 100 Oxygen Delivery Method Room Air Weight Weight: 163 lb 2.273 oz Body Mass Index (BMI) 25.5 Physical Exam Const alert, oriented x3, no apparent distress and healthy appearing General Appearance: cooperative GI normal to inspection, nondistended, normoactive bowel sounds, soft to palpation, non-tender and non-distended Percussion: normal to percussion Rectal Exam: deferred Assessment & Plan Assessment/Plan (1) Diarrhea: PLAN: Assessment and Plan Assessment and Plan (1) Irritable bowel syndrome: (2) Diarrhea: Status: Acute Plan: Pt is a 68 to female here today for evaluation of diarrhea. She has been having diarrhea daily after meals for about one month now. She denies any new medications or diet changes. She recently got a new job. She has had EGD and colonoscopy years ago. I recommended she undergo another colonoscopy and EGD since she is having GI symptoms and is due for screening. She is agreeable. I will also order blood work for food allergies as she has noticed symptoms specially with beef. She will also have blood work for autoimmune conditions as her brother has Crohns disease. I will order stool testing. Diffreental incldues IBS, IBS, celiac, food allergens, or GERD -EGD and colonoscopy -Continue PPI -Blood test and stool testing Orders: Orders CBC W/Diff, Automated Today R19.7 - Diarrhea, unspecified Comprehensive Metabolic Profil Today R19.7 - Diarrhea, unspecified Allergen, Food Profile 14 Today R19.7 - Diarrhea, unspecified FARHAN Comprehensive Panel Today R19.7 - Diarrhea, unspecified ANCA Today R19.7 - Diarrhea, unspecified Calprotectin, Stool Today R19.7 - Diarrhea, unspecified CDIFF (PCR) Today R19.7 - Diarrhea, unspecified Celiac Disease Profile Today R19.7 - Diarrhea, unspecified STEPHEN + Protein Elect, Serum Today R19.7 - Diarrhea, unspecified IBD Expanded Profile Today R19.7 - Diarrhea, unspecified Giardia Lamblia, Stool EIA Today R19.7 - Diarrhea, unspecified ENTERIC PATHOGEN PANEL STOOL Today K58.9 - Irritable bowel syndrome, unspecified, R19.7 - Diarrhea, unspecified Immunoglobulins G/A/M/E Today R19.7 - Diarrhea, unspecified Ova and Parasites [id number] Today K58.9 - Irritable bowel syndrome, unspecified, R19.7 - Diarrhea, unspecified Pancreatic Elastase, Fecal Today R19.7 - Diarrhea, unspecified Stool Lactoferrin/WBC Today K58.9 - Irritable bowel syndrome, unspecified, R19.7 - Diarrhea, unspecified
--- NOTE | 2024-09-08 14:45 | EGD_PTH ---
PATIENT: TRISTIAN PATHAK LOC: EN U#:[id number] AGE/SX: 69/F ROOM: RE09/08/[address]: Dr. Quang Pritchett DO : 1955 BED: DIS: 09/08/2024 SPEC #: [id number] RECD: 09/09/24 11:20 STATUS: MOMO GI #: [id number] CRISTIANO: 09/08/24 14:[address]: Quang Pritchett DEPT: SURGICAL PATHOLOGY RECD BY: Mo Winters ENTERED: 09/09/24 11:20 SP TYPE: EGD BIOPSY AMOL DR: Dr. Lenny Hansen DO Tissues: A - Gastric mucous membrane B - Cecum, NOS C - Ileum, NOS D - COLON BIOPSY Procedures: Surgery Specimen Level IV HEADER OPERATION: Colonoscopy with biopsy, EGD with biopsy PRE-OP DIAGNOSIS: Irritable bowel syndrome, diarrhea TISSUE SUBMITTED: A- Gastric body biopsy, B- Cecum biopsy, C- Terminal ileum biopsy, D- Random colon biopsy MICROSCOPIC DIAGNOSIS A: STOMACH, BODY, BIOPSY: * Oxyntic mucosa with mild chronic inflammation and features of reactive gastropathy. * Negative for Helicobacter-like organisms (H&E). B: CECUM, BIOPSY: * No specific pathologic change. C: TERMINAL ILEUM, BIOPSY: * Normal villous architecture with no specific pathologic change. D: RANDOM COLON, BIOPSY: * No specific pathologic change. * The histologic features of microscopic colitis are not demonstrated. MICROSCOPIC DESCRIPTION Slides are reviewed. GROSS DESCRIPTION A. Received in fixative is one container labeled with the patient's name and designated Gastric body biopsy. The specimen consists of multiple irregular fragments of light amato soft tissue that in aggregate measure 1.9 x 0.2 x 0.2 cm. The specimen is totally submitted in one cassette. B. Received in fixative is one container labeled with the patient's name and designated Cecum biopsy. The specimen consists of two irregular fragments of light amato soft tissue that in aggregate measure 0.7 x 0.2 x 0.2 cm. The specimen is totally submitted in one cassette. C. Received in fixative is one container labeled with the patient's name and designated Terminal ileum biopsy. The specimen consists of multiple irregular fragments of light amato soft tissue that in aggregate measure 0.8 x 0.2 x 0.1 cm. The specimen is totally submitted in one cassette. D. Received in fixative is one container labeled with the patient's name and designated Random colon biopsy. The specimen consists of multiple irregular fragments of light amato soft tissue that in aggregate measure 2.5 x 0.3 x 0.2 cm. The specimen is totally submitted in one cassette. 09/09/2024 CPT:36164m3
--- NOTE | 2024-09-08 15:24 | PCM.PRE.AN2 ---
ASA Classification* ASA Classification ASA Classification: 3 Assessment & Plan Anesthesia* Anesthesia Assessment Anesthesia Assessment: Discussed sedation and/or anesthesia options, risks, benefits, and alternatives with patient/parents/legal guardian/POA. Questions invited. The patient/parents/legal guardian/POA seems to understand and agrees to proceed with anesthesia plan. Reviewed the physical assessment, medical history, allergy history and patient home medications list prior to surgery/procedure/anesthetic and documented any changes. Performed airway and anesthesia risk assessments. Anesthesia Type Anesthesia Type: General History Source History Obtained from:: Patient and Chart Anesthesia Focused Assessment* Temperature: 97 F Pulse Rate: 67 Blood Pressure: 128/64 Respiratory Rate: 16 Pulse Ox: 100 Oxygen Delivery Method: Room Air Airway Assessment Mouth opens: >3 cm Mallampati Score: II Teeth Condition: Intact Neck Range of motion (ROM): Full ROM Focused Labs Anesthesia Preop lab: CBC WBC 9.3 K/mm3 (4.4-11.0) 03/31/24 15:40 03/31/24 RBC 3.80 M/mm3 (4.2-5.4) L 03/31/24 15:40 03/31/24 Hgb 11.9 g/dL (12.0-15.0) L 03/31/24 15:40 03/31/24 Hct 35.6 % (37-47) L 03/31/24 15:40 03/31/24 Plt Count 274 K/mm3 (150-450) 03/31/24 15:40 03/31/24 CHEMISTRY Potassium 4.0 mmol/L (3.5-5.1) 03/31/24 15:40 03/31/24 Sodium 137 mmol/L (136-145) 03/31/24 15:40 03/31/24 BUN 26 mg/dL (7-18) H 03/31/24 15:40 03/31/24 Creatinine 1.01 mg/dL (0.55-1.02) 03/31/24 15:40 03/31/24 Glucose 110 mg/dL (74-106) H 03/31/24 15:40 03/31/24 TSH 1.14 uIU/mL (0.358-3.74) 12/12/23 13:49 12/12/23 COAG Pre-Assessment Diagnosis/Proposed Procedure Planned Operative Procedure(s): COLONOSCOPY Anesthesia History Anesthesia History - partition notcher: Anesthesia History - partition notcher Hx Hospitalization No 09/04/24 14:46 Any Problems With Anesthesia No 09/04/24 14:46 Cholinesterase deficiency No 09/04/24 14:46 You/Your Family Experience No 09/04/24 14:46 fever (hyperthermia) with Relationship Recent Exposure to Contagious No 09/08/24 14:02 Disease Does patient have nerve No 09/04/24 14:46 stimulator Patient instructed to have device shut off --Does patient have Pacemaker No 09/08/24 14:02 or ICD? When Was Last Pacemaker Check QUESTION #4 FULL TEXT: You/Your Family Experience fever (hyperthermia) with Anesthesia Any additional information?: No Last Oral Intake Last Oral intake: Last Oral Intake NPO since 11:00 09/08/24 14:02 Meds taken in AM with sips of Yes 09/08/24 14:02 water? Meds patient instructed to take am of surgery Any additional information?: No PONV PONV - partition notcher: PONV - partition notcher Female Yes 09/04/24 14:46 HX of Motion Sickness No 09/04/24 14:46 HX of N/V After Surgery No 09/04/24 14:46 Non-Smoker Yes 09/04/24 14:46 Duration of Surgery greater No 09/04/24 14:46 than 60 minutes Number of Risk Factors 2 09/04/24 14:46 PONV Score Moderate Risk 09/04/24 14:46 Any additional information?: No Height & Weight Height & Weight: Anesthesia: Height & Weight Height 5 ft 7 in 09/08/24 14:02 Weight: 74 kg 09/08/24 14:02 Body Mass Index (BMI) 25.5 09/08/24 14:02 Respiratory Assessment Respiratory Assessment - partition notcher: Respiratory Tract Infection Hx - partition notcher Hx Respiratory Tract Infection No 09/04/24 14:46 Any additional information?: No STOP Sleep Apnea STOP Sleep Apnea - partition notcher: STOP Sleep Apnea - partition notcher Hx Hypertension Yes: CONTROLLED ON MED 09/04/24 14:46 Hx Sleep Apnea No 09/04/24 14:46 CPAP BIPAP Do you snore loudly (louder No 09/04/24 14:46 than talking or can be heard Do you often feel tired/ No 09/04/24 14:46 fatigued/ sleepy during daytime? Has anyone observed you stop No 09/04/24 14:46 breathing during sleep? STOP Results Negative 09/04/24 14:46 QUESTION #5 FULL TEXT : Do you snore loudly (louder than talking or can be heard through closed doors)? 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 Specify any problems Hx of Preganancy in last 3 No 09/04/24 14:46 Months Nurse Filling Out Transfusion VCHRISTIN 09/04/24 14:46 & Questions: Date: 09/04/24 09/04/24 14:46 Time: 14:47 09/04/24 14:46 Patient unable to answer at this time (ie. confused, unrespo Any additional information?: No /Reproduction History /Reproductive History - partition notcher: /Reproductive Hx- partition notcher Hx Now Gestational Age (in weeks): EDC: Hx Hx Para Hx Section SAB Any additional information?: No PFSH Medical History Wears glasses Wears dentures Post-menopausal Depression Anxiety Back pain History of hiatal hernia History of Crohn's disease Gastric reflux Smoker History of echocardiogram Venous insufficiency Venous ulcer of right leg Heart valve disorder Vascular disease GERD (gastroesophageal reflux disease) Hyperlipidemia Hypertension Carpal tunnel syndrome Cataracts, bilateral Back problem Arthritis Home Medications ?Medication ?Instructions ?Recorded ?Last Taken ?Type acetaminophen 325 mg capsule 650 mg PO BID PRN Pain 11/20/18 Unknown History (Tylenol) multivitamin 1 tab PO DAILY 11/20/18 Unknown History aspirin 81 mg capsule 81 mg PO DAILY 08/21/22 Unknown History hydrocolloid dressing 4 X 4 #5 ea 10/09/23 Unknown Rx pantoprazole 40 mg tablet,delayed 40 mg PO DAILY #90 tabs 12/09/23 Unknown Rx release (Protonix) rosuvastatin 40 mg tablet 40 mg PO QHS #90 tabs 03/27/24 Unknown Rx hydrochlorothiazide 25 mg tablet 25 mg PO QAM #90 tabs 04/28/24 Unknown Rx metoprolol tartrate 50 mg tablet 50 mg PO TID 90 days #270 tabs 04/28/24 09/08/24 Rx (Lopressor) duloxetine 60 mg capsule,delayed 60 mg PO DAILY #90 caps 06/09/24 Unknown Rx release (Cymbalta) valsartan 320 mg tablet 160 mg (1/2 x 320 mg) PO DAILY #90 08/28/24 09/08/24 Rx tabs Allergy/AdvReac Type Severity Reaction Status Date / Time No Known Allergies Allergy Verified 09/04/24 14:37 Family History Mother Arthritis CVA (cerebral vascular accident) Father Arthritis Myocardial infarction Heart disease Surgical History Hx of surgical procedure unable to obtain (Bilateral iliac artery stents placed ) Social History household members: spouse Smoking Status: Current every day smoker tobacco type: cigarettes alcohol intake: former details: Several years substance use type: does not use what type of physical activity do you participate in: none Review of Systems (Anesthesia) ROS Narrative System reviewed and no additional complaints, except as documented. Physical Exam Const alert, oriented x3 and average body habitus Resp normal respiratory effort, normal air movement and clear to auscultation bilaterally Cardio regular rate, regular rhythm, no murmurs and diaphoretic
--- NOTE | 2024-09-08 16:11 | PCM.POST.ANE ---
Anesthesia: Postop Eval I Current Vital Signs Temperature: 97.5 F Pulse Rate: 64 Blood Pressure: 100/49 Respiratory Rate: 16 Pulse Ox: 97 Oxygen Delivery Method: Room Air Assessment Airway patent: Yes Spontaneous unlabored respirations: Yes Mental status: Awake and Calm nausea: No Vomiting: No Anesthesia Complication: No Fluid Hydration Crystalloid volume administer (ml): 60 Total IV fluid infused: 60 Progress Note Anesthesia document: Postop Eval 1 completed: Yes
--- NOTE | 2024-09-08 16:32 | OP.CCLET_ITS ---
09/08/2024 Lenny Hansen Re : Upper GI endoscopy procedure for Geneva Cerrato Dear Dr. Hansen This procedure was performed on Sunday, September 08, 2024. My impressions and recommendations are as follows: Impressions : - Normal esophagus. - Small hiatal hernia. - Non-bleeding gastric ulcers with no stigmata of bleeding. Biopsied. - No gross lesions in the duodenal bulb. Recommendations : - Discharge patient to home. - Resume previous diet. - Continue present medications. - Await pathology results. My findings are described in the full procedure note, which is enclosed. If I can be of further assistance, please feel free to contact me at . Sincerely, Quang Pritchett, 09/08/2024 4:31:43 PM This report has been signed electronically.
--- NOTE | 2024-09-08 16:32 | OP.EGD_ITS ---
Patient Name: Geneva Cerrato Procedure Date: 09/08/2024 3:29 PM Date of : 1955 Age: 69 Procedure: Upper GI endoscopy Indications: Functional Dyspepsia, Dysphagia Providers: Quang Pritchett DO Referring MD: Lenny Hansen Medicines: Monitored Anesthesia Care Patient Profile: This is a 69 year old female. Refer to note in patient chart for documentation of history and physical. Patient has symptoms of acute epigastric abdominal pain and dysphagia with solids. Complications: No immediate complications. Procedure: Pre-Anesthesia Assessment: - Prior to the procedure, a History and Physical was performed, and patient medications and allergies were reviewed. The patient is competent. The risks and benefits of the procedure and the sedation options and risks were discussed with the patient. All questions were answered and informed consent was obtained. Patient identification and proposed procedure were verified by the physician in the pre-procedure area. Mental Status Examination: alert and oriented. Airway Examination: normal oropharyngeal airway and neck mobility. Respiratory Examination: clear to auscultation. CV Examination: normal. Prophylactic Antibiotics: The patient does not require prophylactic antibiotics. Prior Anticoagulants: The patient has taken no anticoagulant or antiplatelet agents. ASA Grade Assessment: II - A patient with mild systemic disease. After reviewing the risks and benefits, the patient was deemed in satisfactory condition to undergo the procedure. The anesthesia plan was to use monitored anesthesia care (MAC). Immediately prior to administration of medications, the patient was re-assessed for adequacy to receive sedatives. The heart rate, respiratory rate, oxygen saturations, blood pressure, adequacy of pulmonary ventilation, and response to care were monitored throughout the procedure. The physical status of the patient was re-assessed after the procedure. After obtaining informed consent, the endoscope was passed under direct vision. Throughout the procedure, the patient's blood pressure, pulse, and oxygen saturations were monitored continuously. The Colonoscope was introduced through the mouth, and advanced to the second part of duodenum. The upper GI endoscopy was accomplished without difficulty. The patient tolerated the procedure well. Scope In: 3:43:24 PM Scope Out: 3:45:27 PM Total Procedure Duration Time 0 hours 2 minutes 3 seconds Findings: The examined esophagus was normal. A small hiatal hernia was present. Two non-bleeding superficial gastric ulcers with no stigmata of bleeding were found in the gastric body. The largest lesion was 3 mm in largest dimension. Biopsies were taken with a cold forceps for histology. Verification of patient identification for the specimen was done. Estimated blood loss was minimal. Biopsies were taken with a cold forceps for Helicobacter pylori testing. Verification of patient identification for the specimen was done. Estimated blood loss was minimal. No gross lesions were noted in the duodenal bulb. Mild gastric antral vascular ectasia without bleeding was present in the gastric antrum. Impression: - Normal esophagus. - Small hiatal hernia. - Non-bleeding gastric ulcers with no stigmata of bleeding. Biopsied. - No gross lesions in the duodenal bulb. Recommendation: - Discharge patient to home. - Resume previous diet. - Continue present medications. - Await pathology results. Procedure Code(s): --- Professional --- 94783, Esophagogastroduodenoscopy, flexible, transoral; with biopsy, single or multiple CPT copyright 2021 [employer]. All rights reserved. The codes documented in this report are preliminary and upon writing center director review may be revised to meet current compliance requirements. Quang Pritchett DO 09/08/2024 4:31:43 PM This report has been signed electronically. Number of Addenda: 0 Note Initiated On: 09/08/2024 3:29 PM
--- NOTE | 2024-09-08 16:37 | OP.CCLET_ITS ---
09/08/2024 Lenny Hansen Re : Colonoscopy procedure for Geneva Cerrato Dear Dr. Hansen This procedure was performed on Sunday, September 08, 2024. My impressions and recommendations are as follows: Impressions : - Congested mucosa in the sigmoid colon, in the descending colon, at the splenic flexure, in the transverse colon, in the ascending colon and in the cecum. Biopsied. - The examined portion of the ileum was normal. Biopsied. Recommendations : - Discharge patient to home. - Resume previous diet. - Continue present medications. - Await pathology results. - Repeat colonoscopy is recommended [Repeat reason]. The colonoscopy date will be determined after pathology results from today's exam become available for review. My findings are described in the full procedure note, which is enclosed. If I can be of further assistance, please feel free to contact me at . Sincerely, Quang Pritchett, 09/08/2024 4:36:52 PM This report has been signed electronically.
--- NOTE | 2024-09-08 16:37 | OP.COLON_ITS ---
Patient Name: Geneva Cerrato Procedure Date: 09/08/2024 3:45 PM Date of : 1955 Age: 69 Procedure: Colonoscopy Indications: Clinically significant diarrhea of unexplained origin Providers: Quang Pritchett DO Referring MD: Lenny Hansen Medicines: Monitored Anesthesia Care Patient Profile: This is a 69 year old female. Refer to note in patient chart for documentation of history and physical. Patient has symptoms of acute epigastric abdominal pain and dysphagia with solids. Last Colonoscopy: date unknown. Unable to locate last colonoscopy report. Complications: No immediate complications. Procedure: Pre-Anesthesia Assessment: - Prior to the procedure, a History and Physical was performed, and patient medications and allergies were reviewed. The patient is competent. The risks and benefits of the procedure and the sedation options and risks were discussed with the patient. All questions were answered and informed consent was obtained. Patient identification and proposed procedure were verified by the physician in the pre-procedure area. Mental Status Examination: alert and oriented. Airway Examination: normal oropharyngeal airway and neck mobility. Respiratory Examination: clear to auscultation. CV Examination: normal. Prophylactic Antibiotics: The patient does not require prophylactic antibiotics. Prior Anticoagulants: The patient has taken no anticoagulant or antiplatelet agents. ASA Grade Assessment: II - A patient with mild systemic disease. After reviewing the risks and benefits, the patient was deemed in satisfactory condition to undergo the procedure. The anesthesia plan was to use monitored anesthesia care (MAC). Immediately prior to administration of medications, the patient was re-assessed for adequacy to receive sedatives. The heart rate, respiratory rate, oxygen saturations, blood pressure, adequacy of pulmonary ventilation, and response to care were monitored throughout the procedure. The physical status of the patient was re-assessed after the procedure. After I obtained informed consent, the scope was passed under direct vision. Throughout the procedure, the patient's blood pressure, pulse, and oxygen saturations were monitored continuously. The Colonoscope was introduced through the anus and advanced to the terminal ileum. The colonoscopy was performed without difficulty. The patient tolerated the procedure well. The quality of the bowel preparation was adequate. The terminal ileum, ileocecal valve, appendiceal orifice, and rectum were photographed. Scope In: 3:47:17 PM Scope Withdrawal Time 0 hours 10 minutes 22 seconds Scope Out: 4:02:35 PM Total Procedure Duration Time 0 hours 15 minutes 18 seconds Findings: The perianal and digital rectal examinations were normal. An area of mildly congested mucosa was found in the sigmoid colon, in the descending colon, at the splenic flexure, in the transverse colon, in the ascending colon and in the cecum. Biopsies were taken with a cold forceps for histology. The terminal ileum appeared normal. Biopsies were taken with a cold forceps for histology. Verification of patient identification for the specimen was done. Estimated blood loss was minimal. Impression: - Congested mucosa in the sigmoid colon, in the descending colon, at the splenic flexure, in the transverse colon, in the ascending colon and in the cecum. Biopsied. - The examined portion of the ileum was normal. Biopsied. Recommendation: - Discharge patient to home. - Resume previous diet. - Continue present medications. - Await pathology results. - Repeat colonoscopy is recommended [Repeat reason]. The colonoscopy date will be determined after pathology results from today's exam become available for review. Procedure Code(s): --- Professional --- 51529, Colonoscopy, flexible; with biopsy, single or multiple CPT copyright 2021 [employer]. All rights reserved. The codes documented in this report are preliminary and upon creosoting engineer review may be revised to meet current compliance requirements. Quang Pritchett DO 09/08/2024 4:36:52 PM This report has been signed electronically. Number of Addenda: 0 Note Initiated On: 09/08/2024 3:45 PM
--- NOTE | 2024-09-08 17:11 | PCM.POSTANE2 ---
Anesthesia Postop Eval I Sum Postop Eval Completion status Anesthesia document: Postop Eval 1 completed: Yes Anesthesia Postop Eval I Summary Anesthesia Postop Eval I Summary: Anesthesia Postop Eval I: Assessment Summary Airway patent Yes 09/08/24 16:12 [email or web address] Spontaneous unlabored Yes 09/08/24 16:12 [email or web address] respirations Mental status Awake,Calm 09/08/24 16:12 [email or web address] nausea No 09/08/24 16:12 [email or web address] Vomiting No 09/08/24 16:12 [email or web address] Anesthesia Postop Eval I: Fluid Summary Crystalloid volume administer 60 09/08/24 16:12 [email or web address] (ml) Colloids volume administered ( ml) Blood Product volume administered (ml) Total IV fluid infused 60 09/08/24 16:12 [email or web address] Anesthesia Postop Eval I: Summary Notes Anesthesia Complication No 09/08/24 16:12 [email or web address] Anesthesia Complication Comment: Post-operative progress note Anesthesia: Postop Eval II Evaluation Mental status: Awake Pain Level: 0 nausea: No Vomiting: No Complications Anesthesia Complication: No
== END 2024-09-08 16:55 | disposition home or self-care (01) ==
LOC: EN 13:33 → AC 14:03
PROVIDERS: PCP Family Medicine; Referring Provider Family Medicine; Visit Provider Internal Medicine Gastroenterology
PROC: 0DJD8ZZ Inspection of Lower Intestinal Tract, Via Natural or Artificial Opening Endoscopic (ICD-10-PCS; CPT 45378; principal; 2024-09-08 14:40)
DX: K31.819 Angiodysplasia of stomach and duodenum without bleeding (principal); K25.9 Gastric ulcer, unspecified as acute or chronic, without hemorrhage or perforation; K58.0 Irritable bowel syndrome with diarrhea; K44.9 Diaphragmatic hernia without obstruction or gangrene; I10 Essential (primary) hypertension; K21.9 Gastro-esophageal reflux disease without esophagitis; R13.10 Dysphagia, unspecified; E78.5 Hyperlipidemia, unspecified; F17.210 Nicotine dependence, cigarettes, uncomplicated; Z79.82 Long term (current) use of aspirin; Z79.899 Other long term (current) drug therapy
CPT/HCPCS: 45380; 43239; 88305; A4216; J2405

== ENCOUNTER → 2024-09-22 | Outpatient (CLI) | payer MEDICARE, SELFPAY ==
--- NOTE | 2024-09-22 09:15 | AAVD_ITS ---
Reason For Study Reason For Study: S/P bilateral iliac vein/IVC stents Inferior Vena Cava Proximal inferior vena cava measures 1.47x1.80 cm. in the cross-sectional axis. Proximal inferior vena cava measures 1.52 cm. in the longitudinal axis. Mid inferior vena cava measures 0.96x1.93 cm. in the cross-sectional axis. Mid inferior vena cava measures 0.93 cm. in the longitudinal axis. The inferior vena cava has spontaneous, phasic flow throughout. . Distal IVC, Limb 1 Stent, 1.52x1.34x1.40cm. Distal IVC, Limb 2 Stent, 1.33x1.25x1.29cm. Left Common Iliac Vein Left common iliac vein measures 1.38x1.59 cm. in the cross-sectional axis. Left common iliac vein measures 1.24 cm. in the longitudinal axis. The left common iliac vein has spontaneous, phasic flow throughout. Stent noted in Left CIV. Right Common Iliac Vein Right common iliac vein measures 1.46x1.45 cm. in the cross-sectional axis. Right common iliac vein measures 1.46 cm. in the longitudinal axis. The right common iliac vein has spontaneous, phasic flow throughout. Stent noted in Right CIV. Procedure Aorta IVC Iliac vasculature or bypass grafts [id number]. Exam performed in department. VL/Abd Aortic/IVC Duplex scan Interpretation Summary Patent inferior vena cava and bilateral iliac vein stents with normal venous fl ow pattern. Ordering Physician: Tamiko Kingsley Referring Physician: Harpreet Hansen M.D. Performed By: Lyndsey Shi RVT
== END | disposition home or self-care (01) ==
PROVIDERS: PCP Family Medicine; Referring Provider Physician Assistant; Visit Provider Physician Assistant
DX: I87.1 Compression of vein (principal); Z95.820 Peripheral vascular angioplasty status with implants and grafts
CPT/HCPCS: 93978

== ENCOUNTER → 2024-11-04 | Outpatient (CLI) | payer MEDICARE, SELFPAY ==
[2024-11-04 16:57] LABS: Absolute Lymphocyte Count 1.98 X10^3/uL (0.83-4.51); Absolute Neutrophil Count 6.5 X10^3/uL (2.0-7.7); Basophil# 0.05 X10^3/uL; Basophil% 0.5 % (0-1); Eosinophil# 0.11 X10^3/uL; Eosinophils% 1.2 % (0-5); Hematocrit 37.1 % (37-47); Hemoglobin 12.5 g/dL (12.0-15.0); Lymphocyte # 1.98 X10^3/ul (0.83-4.51); Lymphocyte % 21.3 % (19-41); Mean Corp Hgb Conc 33.7 g/dL (32-36); Mean Corpuscular Hgb 32.1 pg (27.0-32.0); Mean Corpuscular Volume 95.1 fL (81-99); Mean Platelet Vol. 10.3 fl (6.2-12.0); Monocyte# 0.68 X10^3/uL; Monocyte% 7.3 % (0-10); NRBC Flagged by Analyzer 0 % (0-5); Neutrophil # 6.45 X10^3/uL (2.7-7.7); Neutrophil % 69.5 % (47-70); Platelet Count 263 K/mm3 (150-450); RBC Distribution Width CV 12.3 % (11.6-14.6); RBC Distribution Width SD 42.5 fl (35.1-43.9); White Blood Count 9.3 K/mm3 (4.4-11.0)
[2024-11-04 17:44] LABS: ALB/GLOB Ratio 1.5 RATIO (0.9-2.4); AST(SGOT) 22 U/L (<=31); Alanine Aminotransfer ALT/SGPT 16 U/L (<=34); Albumin, Serum 4.3 g/dL (3.4-4.8); Alkaline Phosphatase 82 U/L (35-104); Anion Gap 11 (5-15); BUN 26 mg/dL (4-19); BUN/Creat Ratio 28.2 RATIO (10-20); Calcium,Total 9.9 mg/dL (7.6-11.0); Carbon Dioxide 25.2 mmol/L (21.0-32.0); Chloride 101 mmol/L (98-108); Cholesterol 176 mg/dL (<=200); Creatinine, Serum 0.93 mg/dL (0.70-1.20); EST Glomerular Filtration Rate 66 (>60); Globulin 2.8 g/dL (2.2-4.2); Glucose 99 mg/dL (70-99); High Density Lipoprotein 51 mg/dL; Low Density Lipoprotein Calc. 67 mg/dL; Potassium 4.4 mmol/L (3.3-5.1); Protein, Total 7.1 g/dL (5.9-8.4); Sodium Level 138 mmol/L (133-145); Total Bilirubin 0.23 mg/dL (0.00-1.30); Triglycerides 291 mg/dL; Very Low Density Lipoprotein 58 mg/dL (5-40); cholesterol:hdl ratio screen 3.48
== END | disposition home or self-care (01) ==
LOC: BIMLAB 15:45
PROVIDERS: PCP Family Medicine; Referring Provider Family Medicine; Visit Provider Family Medicine
DX: I10 Essential (primary) hypertension (principal); E78.5 Hyperlipidemia, unspecified
CPT/HCPCS: 36415; 80053; 80061; 85025

== ENCOUNTER → 2024-12-02 | Outpatient (CLI) | payer MEDICARE, SELFPAY ==
--- NOTE | 2024-12-02 12:42 | NM_ITS ---
PROCEDURE: GASTRIC EMPTYING STUDY 12/02/2024 REASON FOR EXAM: NAUSEA REFLUX. IRRITABLE BOWEL SYNDROME. DIARRHEA. CROHN'S DISEASE. TECHNIQUE: The patient ingested a standard meal of 1 cup of oatmeal with the radiopharmaceutical. Following ingestion, anterior and posterior gamma camera images were acquired at 60 second intervals for a total of 60 minutes. Regions of interest were drawn, and a geometric mean was used to calculate a [id number]. Medications taken in the past 24 hours that may affect gastric emptying: None Radiopharmaceutical: 1.1 mCi of Technetium Sulfur Colloid in oatmeal. FINDINGS: T half-life (min) = 30 Percent activity remaining in stomach: 1 hour 20 % (normal 37-90%) NM/Gastric Emptying Study IMPRESSION: THERE IS 20% ACTIVITY REMAINING IN THE STOMACH AT 60 MINUTES, WITHIN THE NORMAL RANGE FOR GASTRIC EMPTYING. Reading Location: [place] [id number]
== END | disposition home or self-care (01) ==
LOC: NM 12:42
PROVIDERS: PCP Family Medicine; Referring Provider Student in an Organized Health Care Education/Training Program; Visit Provider Student in an Organized Health Care Education/Training Program
DX: R11.2 Nausea with vomiting, unspecified (principal)
CPT/HCPCS: 78264; A9541

== ENCOUNTER → 2024-12-23 | Outpatient (CLI) | payer MEDICARE, SELFPAY ==
[2024-12-23 15:40] LABS: Absolute Lymphocyte Count 2.62 X10^3/uL (0.83-4.51); Absolute Neutrophil Count 8.3 X10^3/uL (2.0-7.7); Basophil# 0.07 X10^3/uL; Basophil% 0.6 % (0-1); Eosinophil# 0.17 X10^3/uL; Eosinophils% 1.4 % (0-5); Hematocrit 34.7 % (37-47); Hemoglobin 12.1 g/dL (12.0-15.0); Lymphocyte # 2.62 X10^3/ul (0.83-4.51); Lymphocyte % 21.4 % (19-41); Mean Corp Hgb Conc 34.9 g/dL (32-36); Mean Corpuscular Hgb 31.8 pg (27.0-32.0); Mean Corpuscular Volume 91.1 fL (81-99); Mean Platelet Vol. 10.9 fl (6.2-12.0); Monocyte# 1.08 X10^3/uL; Monocyte% 8.8 % (0-10); NRBC Flagged by Analyzer 0 % (0-5); Neutrophil # 8.29 X10^3/uL (2.7-7.7); Neutrophil % 67.5 % (47-70); Platelet Count 257 K/mm3 (150-450); RBC Distribution Width CV 12.2 % (11.6-14.6); RBC Distribution Width SD 40.4 fl (35.1-43.9); Red Blood Count 3.81 M/mm3 (4.2-5.4); White Blood Count 12.3 K/mm3 (4.4-11.0)
[2024-12-23 16:33] LABS: ALB/GLOB Ratio 1.6 RATIO (0.9-2.4); AST(SGOT) 19 U/L (<=31); Alanine Aminotransfer ALT/SGPT 18 U/L (<=34); Alkaline Phosphatase 84 U/L (35-104); Anion Gap 12 (5-15); BUN 46 mg/dL (4-19); BUN/Creat Ratio 26.4 RATIO (10-20); Calcium,Total 9.8 mg/dL (7.6-11.0); Carbon Dioxide 24.9 mmol/L (21.0-32.0); Chloride 99 mmol/L (98-108); Creatinine, Serum 1.73 mg/dL (0.70-1.20); EST Glomerular Filtration Rate 32 (>60); Globulin 2.5 g/dL (2.2-4.2); Glucose 131 mg/dL (70-99); Lipase 60 U/L (13-75); Potassium 4.1 mmol/L (3.3-5.1); Protein, Total 6.5 g/dL (5.9-8.4); Sodium Level 136 mmol/L (133-145); Total Bilirubin 0.33 mg/dL (0.00-1.30)
== END | disposition home or self-care (01) ==
LOC: LAB 14:48
PROVIDERS: PCP Family Medicine; Referring Provider Student in an Organized Health Care Education/Training Program; Visit Provider Student in an Organized Health Care Education/Training Program
DX: R11.2 Nausea with vomiting, unspecified (principal); R19.7 Diarrhea, unspecified; T88.59XA Other complications of anesthesia, initial encounter
CPT/HCPCS: 36415; 80053; 83690; 85025

== ENCOUNTER 2025-03-23 14:07 | Day surgery (SDC) | payer MEDICARE, SELFPAY ==
--- NOTE | 2025-03-22 13:04 | PAT.ANE_ITS ---
Pre-Assessment Diagnosis/Proposed Procedure Planned Operative Procedure(s): EGD Anesthesia History Anesthesia History - medical billing associate: Anesthesia History - medical billing associate Hx Hospitalization No 03/22/25 12:40 Any Problems With Anesthesia No 03/22/25 12:40 Cholinesterase deficiency No 03/22/25 12:40 You/Your Family Experience No 03/22/25 12:40 fever (hyperthermia) with Relationship Recent Exposure to Contagious No 09/08/24 14:02 Disease Does patient have nerve No 03/22/25 12:40 stimulator Patient instructed to have device shut off --Does patient have Pacemaker or ICD? When Was Last Pacemaker Check QUESTION #4 FULL TEXT: You/Your Family Experience fever (hyperthermia) with Anesthesia Last Oral Intake Last Oral intake: Last Oral Intake NPO since Meds taken in AM with sips of water? Meds patient instructed to take am of surgery PONV PONV - medical billing associate: PONV - medical billing associate Female Yes 03/22/25 12:40 HX of Motion Sickness No 03/22/25 12:40 HX of N/V After Surgery No 03/22/25 12:40 Non-Smoker No 03/22/25 12:40 Duration of Surgery greater No 03/22/25 12:40 than 60 minutes Number of Risk Factors 1 03/22/25 12:40 PONV Score Low Risk 03/22/25 12:40 Height & Weight Height & Weight: Anesthesia: Height & Weight Height 5 ft 7 in 11/04/24 15:15 Respiratory Assessment Respiratory Assessment - medical billing associate: Respiratory Tract Infection Hx - medical billing associate Hx Respiratory Tract Infection No 03/22/25 12:40 STOP Sleep Apnea STOP Sleep Apnea - medical billing associate: STOP Sleep Apnea - medical billing associate Hx Hypertension Yes: PER PT, CONTROLLED ON 03/22/25 12:40 MEDS Hx Sleep Apnea No 03/22/25 12:40 CPAP BIPAP Do you snore loudly (louder No 03/22/25 12:40 than talking or can be heard Do you often feel tired/ No 03/22/25 12:40 fatigued/ sleepy during daytime? Has anyone observed you stop No 03/22/25 12:40 breathing during sleep? STOP Results Negative 03/22/25 12:40 QUESTION #5 FULL TEXT : Do you snore loudly (louder than talking or can be heard through closed doors)? 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 Specify any problems Hx of Preganancy in last 3 No 03/22/25 12:40 Months Nurse Filling Out Transfusion MGRIKHARIITH 03/22/25 12:40 & Questions: Date: 03/22/25 03/22/25 12:40 Time: 12:42 03/22/25 12:40 Patient unable to answer at this time (ie. confused, unrespo /Reproduction History /Reproductive History - medical billing associate: /Reproductive Hx- medical billing associate Hx Now No 03/22/25 12:40 Gestational Age (in weeks): EDC: Hx Hx Para Hx Section SAB No 03/22/25 12:40 [facility] Medical History (Updated 03/22/25 @ 12:50 by Marquita Reyna) Restless legs History of ulceration Shortness of breath on exertion Leg cramps History of edema Mitral valve prolapse Abnormal colonoscopy Wears glasses Wears dentures Post-menopausal Depression Anxiety Back pain History of hiatal hernia History of Crohn's disease Gastric reflux Smoker History of echocardiogram Venous insufficiency Venous ulcer of right leg Heart valve disorder GERD (gastroesophageal reflux disease) Hyperlipidemia Hypertension Carpal tunnel syndrome Cataracts, bilateral Back problem Arthritis Home Medications ?Medication ?Instructions ?Recorded ?Last Taken ?Type acetaminophen 325 mg capsule 650 mg PO BID PRN Pain Unknown History (Tylenol) multivitamin 1 tab PO DAILY 11/20/18 Unkn own History aspirin 81 mg capsule 81 mg PO DAILY 08/21/22 09/07/25 History hydrocolloid dressing 4 X 4 #5 ea 10/09/23 Unknown R x pantoprazole 40 mg tablet,delayed 40 mg PO BID #60 tab s 10/23/24 Unknown Rx release (Protonix) rosuvastatin 40 mg tablet 40 mg PO QHS #90 tabs Unknown Rx hydrochlorothiazide 25 mg tablet 25 mg PO QAM #90 tabs 01/18/25 Unknown Rx metoprolol tartrate 50 mg tablet 50 mg PO TID 90 days #270 tabs 01/18/25 Unknown Rx (Lopressor) valsartan 320 mg tablet 160 mg (1/2 x 320 mg) PO RAFAL LY #90 02/24/25 Unknown Rx tabs duloxetine 60 mg capsule,delayed 60 mg PO DAILY #90 ca ps 03/04/25 Unknown Rx release halobetasol propionate 0.05 % 1 applic topical QDAY MA N rash 03/22/25 Unknown History topical cream Allergy/AdvReac Type Severity Reaction Status Date / Time No Known Allergies Allergy Verified 03/22/25 12:34 Family History Mother Arthritis CVA (cerebral vascular accident) Father Arthritis Myocardial infarction Heart disease Surgical History (Updated 03/22/25 @ 12:50 by Marquita Reyna) History of esophagogastroduodenoscopy (EGD) History of colonoscopy History of cataract extraction Hx of surgical procedure Social History (Updated 11/25/24 @ 15:19 by Yandy Putnam) adopted: No household members: spouse number of children: 0 current occupational status: employed 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 pets and animals: Yes pets and animals: cat(s) and dog(s) sexually active: Yes Smoking Status: Current every day smoker tobacco type: cigarettes Tobacco: How many years used: 50 alcohol intake: former year quit: 1984 details: Several years substance use type: does not use caffeine: Yes (2) Type: carbonated beverages what type of physical activity do you participate in: none frequency: daily do you feel safe at home: Yes Audit: Pertinent Findings Pertinent Findings Echo (EF%) pertinent findings: 03/30/2020. EF 60%. Normal size function. Recommendation Anesthesia Recommendation Anesthesia recommendation: OPTIMIZED for anesthesia
[2025-03-23] VITALS (8 sets, daily range): BP systolic 92–120; BP diastolic 44–61; PULSE 56–59; RESP 16; TEMP 36.2–36.3; O2SAT 94–99; BMI 25.2
[2025-03-23] MEDS: Lactated Ringers 1,000 ML 15 ML IV (14:59)
--- NOTE | 2025-03-23 15:15 | EGD_PTH ---
PATIENT: TRISTIAN PATHAK LOC: EN U#:[id number] AGE/SX: 69/F ROOM: RE03/23/[address]: Dr. Quang Pritchett DO : 1955 BED: DIS: 03/23/2025 SPEC #: [id number] RECD: 03/23/25 18:19 STATUS: MOMO GI #: [id number] CRISTIANO: 03/23/25 15:[address]: Quang Pritchett DEPT: SURGICAL PATHOLOGY RECD BY: Mo Winters ENTERED: 03/24/25 10:38 SP TYPE: EGD BIOPSY AMOL DR: Dr. Lenny Hansen, Tissues: A - Gastric mucous membrane Procedures: Immunohistochemical Stains Surgery Specimen Level IV HEADER OPERATION: EGD with biopsy PRE-OP DIAGNOSIS: Bloating, gastric ulcer, nausea / vomiting TISSUE SUBMITTED: A- Gastric antrum biopsy MICROSCOPIC DIAGNOSIS A. Gastric antrum, biopsy: * Oxyntic mucosa with features of reactive gastropathy. * IHC negative for H. pylori organisms. MICROSCOPIC DESCRIPTION Slides are reviewed. All matched controls reacted appropriately. These tests were developed and their performance characteristics determined by [facility]. They may not have been cleared or approved by the U.S. Food and Drug Administration. The FDA has determined that such clearance or approval is not necessary. The above immunohistochemical markers and/or special stains have been reviewed by the Pathologist. GROSS DESCRIPTION A. Received in fixative is one container labeled with the patient's name and designated Gastric antrum biopsy. The specimen consists of two irregular fragments of amato tissue that measure 0.4 and 0.6 cm. The specimen is totally submitted in one cassette. LA 03/24/2025 CPT:80681,46525
--- NOTE | 2025-03-23 15:19 | PCM.PRE.AN2 ---
ASA Classification* ASA Classification ASA Classification: 3 Assessment & Plan Anesthesia* Anesthesia Assessment Anesthesia Assessment: Discussed sedation and/or anesthesia options, risks, benefits, and alternatives with patient/parents/legal guardian/POA. Questions invited. The patient/parents/legal guardian/POA seems to understand and agrees to proceed with anesthesia plan. Reviewed the physical assessment, medical history, allergy history and patient home medications list prior to surgery/procedure/anesthetic and documented any changes. Performed airway and anesthesia risk assessments. Anesthesia Type Anesthesia Type: MAC History Source History Obtained from:: Patient and Chart Anesthesia Focused Assessment* Temperature: 97.4 F Pulse Rate: 56 Blood Pressure: 120/52 Respiratory Rate: 16 Pulse Ox: 98 Oxygen Delivery Method: Room Air Airway Assessment Mouth opens: >3 cm Mallampati Score: II Teeth Condition: Dentures (upper and lower- to come out) Labs Anesthesia Preop lab: CBC WBC, (4.4-11.0) 12.3 K/mm3 H 12/23/24, 14:50 RBC, (4.2-5.4) 3.81 M/mm3 L 12/23/24, 14:50 Hgb, (12.0-15.0) 12.1 g/dL 12/23/24, 14:50 Hct, (37-47) 34.7 % L 12/23/24, 14:50 Plt Count, (150-450) 257 K/mm3 12/23/24, 14:50 CHEMISTRY Potassium, (3.3-5.1) 4.1 mmol/L 12/23/24, 14:50 Sodium, (133-145) 136 mmol/L 12/23/24, 14:50 BUN, (4-19) 46 mg/dL H 12/23/24, 14:50 Creatinine, (0.70-1.20) 1.73 mg/dL H 12/23/24, 14:50 Glucose, (70-99) 131 mg/dL H 12/23/24, 14:50 TSH, (0.358-3.74) 1.14 uIU/mL 12/12/23, 13:49 COAG Pre-Assessment Diagnosis/Proposed Procedure Planned Operative Procedure(s): EGD Anesthesia History Anesthesia History - certified emergency vehicle technician: Anesthesia History - certified emergency vehicle technician Hx Hospitalization No 03/22/25 12:40 Any Problems With Anesthesia No 03/22/25 12:40 Cholinesterase deficiency No 03/22/25 12:40 You/Your Family Experience No 03/22/25 12:40 fever (hyperthermia) with Relationship Recent Exposure to Contagious No 03/23/25 14:51 Disease Does patient have nerve No 03/22/25 12:40 stimulator Patient instructed to have device shut off --Does patient have Pacemaker No 03/23/25 14:51 or ICD? When Was Last Pacemaker Check QUESTION #4 FULL TEXT: You/Your Family Experience fever (hyperthermia) with Anesthesia Last Oral Intake Last Oral intake: Last Oral Intake NPO since 19:00 03/23/25 14:51 Meds taken in AM with sips of Yes 03/23/25 14:51 water? Meds patient instructed to take am of surgery PONV PONV - certified emergency vehicle technician: PONV - certified emergency vehicle technician Female Yes 03/22/25 12:40 HX of Motion Sickness No 03/22/25 12:40 HX of N/V After Surgery No 03/22/25 12:40 Non-Smoker No 03/22/25 12:40 Duration of Surgery greater No 03/22/25 12:40 than 60 minutes Number of Risk Factors 1 03/22/25 12:40 PONV Score Low Risk 03/22/25 12:40 Height & Weight Height & Weight: Anesthesia: Height & Weight Height 5 ft 7 in 03/23/25 14:51 Weight: 73 kg 03/23/25 14:51 Body Mass Index (BMI) 25.2 03/23/25 14:51 Respiratory Assessment Respiratory Assessment - certified emergency vehicle technician: Respiratory Tract Infection Hx - certified emergency vehicle technician Hx Respiratory Tract Infection No 03/22/25 12:40 STOP Sleep Apnea STOP Sleep Apnea - certified emergency vehicle technician: STOP Sleep Apnea - certified emergency vehicle technician Hx Hypertension Yes: PER PT, CONTROLLED ON 03/22/25 12:40 MEDS Hx Sleep Apnea No 03/22/25 12:40 CPAP BIPAP Do you snore loudly (louder No 03/22/25 12:40 than talking or can be heard Do you often feel tired/ No 03/22/25 12:40 fatigued/ sleepy during daytime? Has anyone observed you stop No 03/22/25 12:40 breathing during sleep? STOP Results Negative 03/22/25 12:40 QUESTION #5 FULL TEXT : Do you snore loudly (louder than talking or can be heard through closed doors)? 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 Specify any problems Hx of Preganancy in last 3 No 03/22/25 12:40 Months Nurse Filling Out Transfusion BISMARK 03/22/25 12:40 & Questions: Date: 03/22/25 03/22/25 12:40 Time: 12:42 03/22/25 12:40 Patient unable to answer at this time (ie. confused, unrespo /Reproduction History /Reproductive History - certified emergency vehicle technician: /Reproductive Hx- certified emergency vehicle technician Hx Now No 03/22/25 12:40 Gestational Age (in weeks): EDC: Hx Hx Para Hx Section SAB No 03/22/25 12:40 Active Medications Active Medications: Current Medications Generic Name Dose Route Start Last Admin Trade Name Freq PRN Reason Stop Dose Admin Lactated Ringer's 1,000 mls @ 15 mls/hr 03/23/25 14:30 03/23/25 14:59 IV 15 mls/hr .Q48H CARLA Administration PFSH Medical History (Updated 03/22/25 @ 12:50 by Marquita Reyna) Restless legs History of ulceration Shortness of breath on exertion Leg cramps History of edema Mitral valve prolapse Abnormal colonoscopy Wears glasses Wears dentures Post-menopausal Depression Anxiety Back pain History of hiatal hernia History of Crohn's disease Gastric reflux Smoker History of echocardiogram Venous insufficiency Venous ulcer of right leg Heart valve disorder GERD (gastroesophageal reflux disease) Hyperlipidemia Hypertension Carpal tunnel syndrome Cataracts, bilateral Back problem Arthritis Home Medications ?Medication ?Instructions ?Recorded ?Last Taken ?Type acetaminophen 325 mg capsule 650 mg PO BID PRN Pain 11/20/18 03/22/25 History (Tylenol) multivitamin 1 tab PO DAILY 11/20/18 03/20/25 History aspirin 81 mg capsule 81 mg PO DAILY 08/21/22 03/21/25 History hydrocolloid dressing 4 X 4 #5 ea 10/09/23 Unknown Rx pantoprazole 40 mg tablet,delayed 40 mg PO BID #60 tabs 10/23/24 03/22/25 Rx release (Protonix) rosuvastatin 40 mg tablet 40 mg PO QHS #90 tabs 01/06/25 03/22/25 Rx hydrochlorothiazide 25 mg tablet 25 mg PO QAM #90 tabs 01/18/25 03/22/25 Rx metoprolol tartrate 50 mg tablet 50 mg PO TID 90 days #270 tabs 01/18/25 03/23/25 Rx (Lopressor) valsartan 320 mg tablet 160 mg (1/2 x 320 mg) PO DAILY #90 02/24/25 03/23/25 Rx tabs duloxetine 60 mg capsule,delayed 60 mg PO DAILY #90 caps 03/04/25 03/22/25 Rx release halobetasol propionate 0.05 % 1 applic topical QDAY PRN rash 03/22/25 03/16/25 History topical cream Allergy/AdvReac Type Severity Reaction Status Date / Time adhesive tape AdvReac Mild Itching Verified 03/23/25 14:50 Family History Mother Arthritis CVA (cerebral vascular accident) Father Arthritis Myocardial infarction Heart disease Surgical History (Updated 03/22/25 @ 12:50 by Marquita Reyna) History of esophagogastroduodenoscopy (EGD) History of colonoscopy History of cataract extraction Hx of surgical procedure Social History (Updated 11/25/24 @ 15:19 by Yandy Putnam) adopted: No household members: spouse number of children: 0 current occupational status: employed 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
--- NOTE | 2025-03-23 15:27 | HP.PCM_ITS ---
HPI - General General Date of Admission: 03/23/25 Date of Service: 03/23/25 Chief Complaint: bloating HPI Narrative GENEVA PATHAK is a 69 F who presentsChief Complaint: abd bloating Details: GENEVA PATHAK is a 69 F who presents to the office today for f/u. [facility] established .07.24 for complaints of diarrhea. IBS diagnosed many years ago. last EGD and colonoscopy over 1 years ago. Family hx of Crohns Biochemical work up; CBC wnl, LFTs wnl, Celiac wnl, 0/1 cows milk allergy, IBD panel suggestive of Crohns, Stool 10.10.22; calprotectin normal, elastase normal Colonoscopy 09.08.24; - Congested mucosa in the sigmoid colon, in the descending colon, at the splenic flexure, in the transverse colon, in the ascending colon and in the cecum. Biopsied. - The examined portion of the ileum was normal. Biopsied. EGD 09.08.24 - Normal esophagus. - Small hiatal hernia. - Non-bleeding gastric ulcers with no stigmata of bleeding. Biopsied. - No gross lesions in the duodenal bulb. OV 3.19.25 Pt has been doing well since our last visit. She does continue to have heartburn daily. When she eats she has nausea, early satiety and bloating. She has never had a GES. She continues with pantoprazole 40 mg daily. She is no longer having diarrhea after changing her diet. She did research about best diets for Crohns and has eliminated most raw fruits and veggies. She feels this has been helpful. Increase PPI and start famotine. GES 6.4.25; normal EGD; scheduled OV 6..25 Pt having nausea, abd bloating and early satiety for the past two weeks. This started after she had her GES. SHe has not been able to eat much due to feeling so full. Yesterday she ate a few bites of macaroni and a tablespoon of sloppy joes on a bun. She feels weak. She does feel like her symptoms are improving slowly. She is schduled for EGD in one month. CBC W/Diff, Automated Today R11.0 - Nausea, T88.59XA - Other complications of anesthesia, initial encounter Comprehensive Metabolic Profil Today R11.2 - Nausea with vomiting, unspecified [facility] Medical History Restless legs History of ulceration Shortness of breath on exertion Leg cramps History of edema Mitral valve prolapse Abnormal colonoscopy Wears glasses Wears dentures Post-menopausal Depression Anxiety Back pain History of hiatal hernia History of Crohn's disease Gastric reflux Smoker History of echocardiogram Venous insufficiency Venous ulcer of right leg Heart valve disorder GERD (gastroesophageal reflux disease) Hyperlipidemia Hypertension Carpal tunnel syndrome Cataracts, bilateral Back problem Arthritis Home Medications ?Medication ?Instructions ?Recorded ?Last Taken ?Type acetaminophen 325 mg capsule 650 mg PO BID PRN Pain 03/22/25 History (Tylenol) multivitamin 1 tab PO DAILY 11/20/1803/02 History aspirin 81 mg capsule 81 mg PO DAILY 08/21/2203/02 History hydrocolloid dressing 4 X 4 #5 ea 10/09/23 Unknown R x pantoprazole 40 mg tablet,delayed 40 mg PO BID #60 tab s 10/23/24 03/22/25 Rx release (Protonix) rosuvastatin 40 mg tablet 40 mg PO QHS #90 tabs 03/22/25 Rx hydrochlorothiazide 25 mg tablet 25 mg PO QAM #90 tabs 01/18/25 03/22/25 Rx metoprolol tartrate 50 mg tablet 50 mg PO TID 90 days #270 tabs 01/18/25 03/23/25 Rx (Lopressor) valsartan 320 mg tablet 160 mg (1/2 x 320 mg) PO RAFAL LY #90 02/24/25 03/23/25 Rx tabs duloxetine 60 mg capsule,delayed 60 mg PO DAILY #90 ca ps 03/04/25 03/22/25 Rx release halobetasol propionate 0.05 % 1 applic topical QDAY [place] N rash 03/22/25 03/16/25 History topical cream Allergy/AdvReac Type Severity Reaction Status Date / Time adhesive tape AdvReac Mild Itching Verified 03/23/25 14:50 Family History Mother Arthritis CVA (cerebral vascular accident) Father Arthritis Myocardial infarction Heart disease Surgical History History of esophagogastroduodenoscopy (EGD) History of colonoscopy History of cataract extraction Hx of surgical procedure Social History adopted: No household members: spouse number of children: 0 current occupational status: employed 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 pets and animals: Yes pets and animals: cat(s) and dog(s) sexually active: Yes Smoking Status: Current every day smoker tobacco type: cigarettes Tobacco: How many years used: 50 alcohol intake: former year quit: 1984 details: Several years substance use type: does not use caffeine: Yes (2) Type: carbonated beverages what type of physical activity do you participate in: none frequency: daily do you feel safe at home: Yes ROS Constitutional Constitutional: Denies fatigue, fever(s), poor appetite, weight gain or weight loss Gastrointestinal Gastrointestinal: Denies belching, bloating, change in bowel habits, change in stool character, chewing difficulty, coffee ground emesis, constipation, c ramping, diarrhea, dyspepsia, dysphagia, early satiety, excessive flatus, fecal incontinence, heartburn, hematemesis, hematochezia, hemorrhoids, loose stools, melena, nausea, odynophagia, rectal bleeding, tenesmus, vomiting or weight changes Vital Signs Vital Signs Vital Signs: 03/23/25 14:51 03/23/25 14:51 03/23/25 15:24 Temperature 97.4 F L 97.4 F L Temperature Source Temporal Pulse Rate 56 L 56 L Respiratory Rate 16 16 Respiratory Pattern Normal Blood Pressure 120/52 L 120/52 L Blood Pressure Mean 74 Blood Pressure Source Monitor Blood Pressure Position Sitting Blood Pressure Location Left Arm Pulse Ox 98 98 Oxygen Delivery Method Room Air Room Air Weight Weight: 160 lb 14.999 oz Body Mass Index (BMI) 25.2 Physical Exam Const alert, oriented x3, no apparent distress and healthy appearing General Appearance: cooperative GI normal to inspection, nondistended, normoactive bowel sounds, soft to palpation, non-tender and non-distended Percussion: normal to percussion Rectal Exam: deferred Assessment & Plan Assessment/Plan (1) Bloating: (2) Gastric ulcer: (3) Nausea & vomiting: PLAN: Assessment and Plan Assessment and Plan (1) Nausea & vomiting: Status: Acute (2) GERD (gastroesophageal reflux disease): Status: Chronic Plan: Geneva is a 69 yo female pt here today for f/u. SInce having her GES done about 2 weeks ago she has had new symptoms including abdominal bloating, nausea and early satiety. She is feeling weak due to lack of oral intake. She feels full after just a few bites of food. I have ordered CBC, CMP and stool testing to rule out infection or inflammation. She is already scheduled for EGD in one month and will proceed with this. She prefers to avoid meds so I have recommend peppermint to help with her nausea. She is agreeable to plan and will call or message if she continues to feel unwell. -CBC, CMP and stool testing -Proceed with EGD next month -Call or message office if no improvements -f/u after procdure (3) Bloating: Status: Acute Orders: Orders CBC W/Diff, Automated Today R11.0 - Nausea, T88.59XA - Other complications of anesthesia, initial encounter Comprehensive Metabolic Profil Today R11.2 - Nausea with vomiting, unspecified
[2025-03-23] MEDS: Lactated Ringers 1,000 ML 1000 ML IV (15:35)
[2025-03-23] MEDS: Lidocaine 1% (5 ml sdv) 5 ML Vial IV (15:42)
--- NOTE | 2025-03-23 15:53 | OP.EGD_ITS ---
Patient Name: Geneva Cerrato Procedure Date: 03/23/2025 3:22 PM Date of : 1955 Age: 69 Procedure: Upper GI endoscopy Indications: Epigastric abdominal pain, Abdominal pain in the left upper quadrant, Suspected peptic ulcer Providers: Quang Pritchett DO Medicines: Monitored Anesthesia Care Patient Profile: This is a 69 year old female. Refer to note in patient chart for documentation of history and physical. Patient has symptoms of acute left upper quadrant abdominal pain and chronic epigastric abdominal pain. Complications: No immediate complications. Procedure: Pre-Anesthesia Assessment: - Prior to the procedure, a History and Physical was performed, and patient medications and allergies were reviewed. The patient is competent. The risks and benefits of the procedure and the sedation options and risks were discussed with the patient. All questions were answered and informed consent was obtained. Patient identification and proposed procedure were verified by the physician in the pre-procedure area. Mental Status Examination: alert and oriented. Airway Examination: normal oropharyngeal airway and neck mobility. Respiratory Examination: clear to auscultation. CV Examination: normal. ASA Grade Assessment: II - A patient with mild systemic disease. After reviewing the risks and benefits, the patient was deemed in satisfactory condition to undergo the procedure. The anesthesia plan was to use monitored anesthesia care (MAC). Immediately prior to administration of medications, the patient was re-assessed for adequacy to receive sedatives. The heart rate, respiratory rate, oxygen saturations, blood pressure, adequacy of pulmonary ventilation, and response to care were monitored throughout the procedure. The physical status of the patient was re-assessed after the procedure. After obtaining informed consent, the endoscope was passed under direct vision. Throughout the procedure, the patient's blood pressure, pulse, and oxygen saturations were monitored continuously. The Endoscope was introduced through the mouth, and advanced to the third part of the duodenum. Small bowel enteroscopy was deemed necessary. The upper GI endoscopy was accomplished without difficulty. The patient tolerated the procedure well. Scope In: 3:41:53 PM Scope Out: 3:43:33 PM Total Procedure Duration Time 0 hours 1 minute 40 seconds Findings: No gross lesions were noted in the entire esophagus. Patchy mild inflammation characterized by erosions and erythema was found in the gastric body and in the gastric antrum. Biopsies were taken with a cold forceps for histology. Biopsies were taken with a cold forceps for Helicobacter pylori testing. No gross lesions were noted in the entire examined duodenum. Type 1 isolated gastric varices (IGV1, varices located in the fundus) with no bleeding were found in the cardia and in the gastric fundus. There were no stigmata of recent bleeding. They were 5 mm in largest diameter. Impression: - No gross lesions in the entire esophagus. - Chronic gastritis. Biopsied. - No gross lesions in the entire examined duodenum. Recommendation: - Await pathology results. - Continue present medications. Procedure Code(s): --- Professional --- 30389, Small intestinal endoscopy, enteroscopy beyond second portion of duodenum, not including ileum; with biopsy, single or multiple CPT copyright 2021 [employer]. All rights reserved. The codes documented in this report are preliminary and upon otr truck driver review may be revised to meet current compliance requirements. Quang Pritchett DO 03/23/2025 3:52:26 PM This report has been signed electronically. Number of Addenda: 0 Note Initiated On: 03/23/2025 3:22 PM
--- NOTE | 2025-03-23 15:53 | OP.PROVAT_ITS ---
03/23/2025 Lenny Hansen Re : Upper GI endoscopy procedure for Geneva Cerrato Dear Dr. Hansen This procedure was performed on Sunday, March 23, 2025. My impressions and recommendations are as follows: Impressions : - No gross lesions in the entire esophagus. - Chronic gastritis. Biopsied. - No gross lesions in the entire examined duodenum. Recommendations : - Await pathology results. - Continue present medications. My findings are described in the full procedure note, which is enclosed. If I can be of further assistance, please feel free to contact me at . Sincerely, Quang Pritchett, 03/23/2025 3:52:26 PM This report has been signed electronically.
--- NOTE | 2025-03-23 15:53 | PCM.POST.ANE ---
Anesthesia: Postop Eval I Current Vital Signs Temperature: 97.3 F Pulse Rate: 59 Blood Pressure: 92/44 Respiratory Rate: 16 Pulse Ox: 94 Assessment Airway patent: Yes Spontaneous unlabored respirations: Yes nausea: No Vomiting: No Anesthesia Complication: No Fluid Hydration Crystalloid volume administer (ml): 200 Total IV fluid infused: 200 Progress Note Anesthesia document: Postop Eval 1 completed: Yes
--- NOTE | 2025-03-23 17:49 | POSTOPAN2_ITS ---
Anesthesia Postop Eval I Sum Postop Eval Completion status Anesthesia document: Postop Eval 1 completed: Yes Anesthesia Postop Eval I Summary Anesthesia Postop Eval I Summary: Anesthesia Postop Eval I: Assessment Summary Airway patent Yes 03/23/25 15:53 CONCRETE WALL GRINDER OPERATOR.[email or web address] Spontaneous unlabored Yes 03/23/25 15:53 CONCRETE WALL GRINDER OPERATOR.[email or web address] respirations Mental status nausea No 03/23/25 15:53 CONCRETE WALL GRINDER OPERATOR.[email or web address] Vomiting No 03/23/25 15:53 CONCRETE WALL GRINDER OPERATOR.[email or web address] Anesthesia Postop Eval I: Fluid Summary Crystalloid volume administer 200 03/23/25 15:53 CONCRETE WALL GRINDER OPERATOR.NGRE (ml) Colloids volume administered ( ml) Blood Product volume administered (ml) Total IV fluid infused 200 03/23/25 15:53 CONCRETE WALL GRINDER OPERATOR.NGRE Anesthesia Postop Eval I: Summary Notes Anesthesia Complication No 03/23/25 15:53 CONCRETE WALL GRINDER OPERATOR.NGRE Anesthesia Complication Comment: Post-operative progress note Anesthesia: Postop Eval II Evaluation Mental status: Awake and Calm Pain Level: 0 nausea: No Vomiting: No Complications Anesthesia Complication: No
--- NOTE | 2025-03-23 17:49 | PCM.POSTANE2 ---
Anesthesia Postop Eval I Sum Postop Eval Completion status Anesthesia document: Postop Eval 1 completed: Yes Anesthesia Postop Eval I Summary Anesthesia Postop Eval I Summary: Anesthesia Postop Eval I: Assessment Summary Airway patent Yes 03/23/25 15:53 MOLDED GOODS OPERATOR.[email or web address] Spontaneous unlabored Yes 03/23/25 15:53 MOLDED GOODS OPERATOR.NGRE respirations Mental status nausea No 03/23/25 15:53 MOLDED GOODS OPERATOR.NGRE Vomiting No 03/23/25 15:53 MOLDED GOODS OPERATOR.[email or web address] Anesthesia Postop Eval I: Fluid Summary Crystalloid volume administer 200 03/23/25 15:53 MOLDED GOODS OPERATOR.NGRE (ml) Colloids volume administered ( ml) Blood Product volume administered (ml) Total IV fluid infused 200 03/23/25 15:53 MOLDED GOODS OPERATOR.NGRE Anesthesia Postop Eval I: Summary Notes Anesthesia Complication No 03/23/25 15:53 MOLDED GOODS OPERATOR.NGRE Anesthesia Complication Comment: Post-operative progress note Anesthesia: Postop Eval II Evaluation Mental status: Awake and Calm Pain Level: 0 nausea: No Vomiting: No Complications Anesthesia Complication: No
== END 2025-03-23 16:35 | disposition home or self-care (01) ==
LOC: EN 14:11 → AC 14:13
PROVIDERS: PCP Family Medicine; Referring Provider Family Medicine; Visit Provider Internal Medicine Gastroenterology
PROC: 0DJ08ZZ Inspection of Upper Intestinal Tract, Via Natural or Artificial Opening Endoscopic (ICD-10-PCS; CPT 43235; principal; 2025-03-23 15:10)
DX: I86.4 Gastric varices (principal); F17.210 Nicotine dependence, cigarettes, uncomplicated; Z79.899 Other long term (current) drug therapy; R68.81 Early satiety; R14.0 Abdominal distension (gaseous); K29.50 Unspecified chronic gastritis without bleeding; K63.89 Other specified diseases of intestine; I10 Essential (primary) hypertension; Z79.82 Long term (current) use of aspirin; E78.5 Hyperlipidemia, unspecified; K21.9 Gastro-esophageal reflux disease without esophagitis
CPT/HCPCS: 44361; 88305; 88342; J2405